=== PATIENT | male | born 1965 | race Caucasian/White ===

== ENCOUNTER → 2020-03-25 09:27 | Outpatient (BNVA) | payer BC, SELFPAY | PROVIDERS: PCP Hospitalist; Referring Provider Hospitalist; Visit Provider Urology | DX: E29.1 Testicular hypofunction (principal); R35.1 Nocturia; N52.9 Male erectile dysfunction, unspecified | CPT/HCPCS: 99214 ==

== ENCOUNTER → 2020-09-23 10:14 | Outpatient (BNVA) | payer BC, SELFPAY | PROVIDERS: PCP Hospitalist; Visit Provider Urology ==

== ENCOUNTER → 2021-03-27 09:06 | Outpatient (BNVA) | payer BC, SELFPAY | PROVIDERS: PCP Hospitalist; Visit Provider Urology ==

== ENCOUNTER → 2021-10-09 09:18 | Outpatient (BNVA) | payer BC, SELFPAY | PROVIDERS: PCP Family Medicine; Visit Provider Urology | DX: R35.1 Nocturia (principal) ==

== ENCOUNTER → 2022-04-13 08:19 | Outpatient (BNVA) | payer BC, SELFPAY | PROVIDERS: PCP Family Medicine; Visit Provider Urology | DX: E29.1 Testicular hypofunction (principal); R35.1 Nocturia | CPT/HCPCS: 51798 ==

== ENCOUNTER → 2022-10-19 08:42 | Outpatient (BNVA) | payer BC, SELFPAY | PROVIDERS: PCP Family Medicine; Visit Provider Urology ==

== ENCOUNTER 2023-05-24 13:51 | Outpatient (AMB) | payer BC, SELFPAY ==
--- NOTE | 2023-05-24 14:04 | MHC.OFFVIS ---
Intake Intake Visit Reasons: PSA/Estradiol(need Testo) Intake Note: Patient is Present for Follow Up labs Urology Medication:Tadalafil Antibiotic Allergies: None Blood Thinners: None Allergies codeine Allergy (Unknown, Verified 05/24/23 14:10) unknown HPI HPI Comments History of Present Illness Details Greyson WILLIS is a very pleasant male. He is a patient of Dr Levy. He is seen for the following urologic conditions. - hypogonadism - lower urinary tract symptoms - erectile dysfunction in setting of diabetes Stable numbers Six-month follow-up Has been increased on diabetic medications Daily tadalafil for erectile dysfunction - has helped Continue clomiphene 1/2 tab daily Hypogonadism Initial symptoms include erectile dysfunction Yes decreased libido Yes change in mood/depression Yes in muscle size/strength Yes increased fatigue/malaise Yes increased abdominal fat No tender breasts/gynecomastia No hair loss No osteopenia No The onset of symptoms has been gradual. Associate conditions include obstructive sleep apnea No CAD No dyslipidemia Yes hypertension Yes obesity Yes stress - financial, family, employment No heavy alcohol or illicit drug use No Laboratory results 05/24 T 274 06/25 T 273 FSH 7.6 LH 7.0 09/23 T 715 FSH 12.5. - 03/25 T 940 PSA 0.9 FSH 12, 03/26 T 405, LH 7 - 09/25 T 660 P 1.0 FSH 11.8, 03/27 T 564 LH 8.9 Est , 09/26 T 591 E 17 Therapeutic plan baseline evaluation of testicular function. Doing well. Review in 6 months Lower Urinary Tract Symptoms: Current visit is for further evaluation of, lower urinary tract symptoms, predominate obstructive symptoms. Current treatment includes observation. Prostate Symptom Score 04/23 , Mild (0-8), Bother 2. Symptoms include 04/22 , incomplete emptying, intermittency, weak stream, and are stable 04/23 , weak stream, nocturia (>2). Prior Prostate Score mild. PSA 04/22 1.1 04/23 1.2 04/24 1.1 Prostate volume < 30 gm. [facility] Medical History Male circumcision Hypogonadism in male Low libido History of urinary hesitancy Weak urinary stream Benign prostatic hyperplasia with lower urinary tract symptoms Nocturia Review of Systems Const Denies chills and Denies fever(s) Card Reports no additional complaints and Denies syncope Resp Denies cough GI Denies abdominal pain and Denies heartburn Reports as per HPI and Denies change in libido Neuro Denies syncope Psych Denies change in libido Endo Denies change in libido Physical Exam Const General: cooperative, healthy appearing, comfortable and no acute distress Orientation/consciousness: patient oriented x3 HEENT Face and sinus: Yes normal facial exam Mouth: moist mucous membranes Neck Neck: Yes normal visual inspection, Yes full ROM and Yes trachea midline Chest Chest palpation & inspection: normal inspection of the chest Resp Effort & Inspection: normal respiratory effort, able to speak in complete sentences and no respiratory distress GI Inspection: Yes normal to inspection Back/Spine/Pelvis Cervical Spine: normal cervical lordosis Thoracic/Lumbar Spine: thoracic and lumbar spine normal to inspection Skin General skin exam: no rashes or lesions noted Neuro General: patient oriented x3, gait normal, tone normal and moves all extremities Extrem General: Yes normal to inspection and Yes capillary refill normal Assessment & Plan Assessment & Plan (1) Erectile dysfunction associated with type 2 diabetes mellitus: Code(s): E11.69 - Type 2 diabetes mellitus with other specified complication; N52.1 - Erectile dysfunction due to diseases classified elsewhere (2) Hypogonadism in male: Code(s): E29.1 - Testicular hypofunction Plan Six month follow-up labs Orders: Orders Testosterone, Total 6 Months E29.1 - Testicular hypofunction Prostate Specific Antigen 6 Months E29.1 - Testicular hypofunction Patient Instructions: Imaging studies, laboratory and physical exam results were discussed and reviewed in detail. No major barriers to patient understanding were identified. An opportunity to ask questions regarding the treatment plan was provided. All questions were answered. The patient expressed understanding and agreement with the above treatment plan. The patient is aware they should contact our office by phone for worsening of their current condition or the appearance of new urologic symptoms. Compliance is encouraged with any medications and followup testing that is ordered. It is a privilege to participate in the urologic care of your patient. If you have any questions or concerns regarding treatment for the above conditions, or other urologic issues, please do not hesitate to contact me. The office telephone contact is [phone]. This note is constructed using voice recognition software. While every effort has been made to ensure accuracy implementation project coordinator errors may have been included. Yours sincerely, Dr Bhargav Tobar MD, [facility] - Urology Providers of Expert, Compassionate Care for the Genitourinary System Coding Level of Care Code Est Pt Level 3 (00034) Diagnoses Erectile dysfunction associated with type 2 diabetes mellitus E11.69; N52.1 Hypogonadism in male E29.1
== END 2023-05-24 14:35 | disposition home or self-care (01) ==
PROVIDERS: PCP Family Medicine; Visit Provider Urology
DX: E11.69 Type 2 diabetes mellitus with other specified complication (principal); N52.1 Erectile dysfunction due to diseases classified elsewhere; E29.1 Testicular hypofunction
CPT/HCPCS: 99213

== ENCOUNTER → 2023-05-24 13:51 | Outpatient (BNVA) | payer BC, SELFPAY | PROVIDERS: PCP Family Medicine; Visit Provider Urology ==

== ENCOUNTER 2023-11-23 14:26 | Outpatient (AMB) | payer BC, SELFPAY ==
--- NOTE | 2023-11-23 14:57 | A.OFFVIS_ITS ---
Intake Visit Reasons: 6m/labs(set) Intake Note: Patient is Present for Follow Up labs Urology Medication: Tadalafil Antibiotic Allergies:None Blood Thinners: Aspirin Allergies codeine Allergy (Unknown, Verified 11/23/23 15:06) unknown Medication List - Last Reconciled 11/23/23 by Bhargav Tobar MD atorvastatin 10 mg PO DAILY buspirone 15 mg PO BID clomiphene citrate 25 mg (1/2 x 50 mg) PO DAILY 90 days escitalopram oxalate 10 mg PO DAILY gabapentin 400 mg PO DAILY gabapentin 400 mg PO BEDTIME lifitegrast 5% 1 drp ophthalmic (eye) Q12H lisinopril 10 mg PO DAILY metformin 500 mg PO DAILY metformin 1,000 mg PO BID resmetirom (Rezdiffra) 100 mg PO DAILY semaglutide (Rybelsus) 3 mg PO DAILY tadalafil 5 mg PO DAILY 90 days HPI Comments Details: Greyson WILLIS is a very pleasant male. He is a patient of Dr Levy. He is seen for the following urologic conditions. - hypogonadism - lower urinary tract symptoms - erectile dysfunction in setting of diabetes 11/27 T 987 Daily tadalafil for erectile dysfunction - has helped Continue clomiphene 1/2 tab daily On semaglutide and metformin - has dropped weight. May need decrease in metformin Six-month follow-up Hypogonadism Initial symptoms include erectile dysfunction Yes decreased libido Yes change in mood/depression Yes in muscle size/strength Yes increased fatigue/malaise Yes increased abdominal fat No tender breasts/gynecomastia No hair loss No osteopenia No The onset of symptoms has been gradual. Associate conditions include obstructive sleep apnea No CAD No dyslipidemia Yes hypertension Yes obesity Yes stress - financial, family, employment No heavy alcohol or illicit drug use No Laboratory results 05/24 T 274 06/25 T 273 FSH 7.6 LH 7.0 09/23 T 715 FSH 12.5. - 03/25 T 940 PSA 0.9 FSH , 03/26 T 405, LH 7 - 09/25 T 660 P 1.0 FSH 11.8, 03/27 T 564 LH 8.9 Est , 09/26 T 591 E 17 Therapeutic plan baseline evaluation of testicular function. Doing well. Review in 6 months Lower Urinary Tract Symptoms: Current visit is for further evaluation of, lower urinary tract symptoms, predominate obstructive symptoms. Current treatment includes observation. Prostate Symptom Score 04/23 , Mild (0-8), Bother 2. Symptoms include 04/22 , incomplete emptying, intermittency, weak stream, and are stable 04/23 , weak stream, nocturia (>2). Prior Prostate Score mild. PSA 04/22 1.1 04/23 1.2 04/24 1.1 Prostate volume < 30 gm. [facility] Medical History Male circumcision Hypogonadism in male Low libido History of urinary hesitancy Weak urinary stream Benign prostatic hyperplasia with lower urinary tract symptoms Nocturia Review of Systems Const Denies chills and Denies fever(s) Card Reports no additional complaints and Denies syncope Resp Denies cough GI Denies abdominal pain and Denies heartburn Reports as per HPI and Denies change in libido Neuro Denies syncope Psych Denies change in libido Endo Denies change in libido Physical Exam Const General: cooperative, healthy appearing, comfortable and no acute distress Orientation/consciousness: patient oriented x3 HEENT Face and sinus: Yes normal facial exam Mouth: moist mucous membranes Neck Neck: Yes normal visual inspection, Yes full ROM and Yes trachea midline Chest Chest palpation & inspection: normal inspection of the chest Resp Effort & Inspection: normal respiratory effort, able to speak in complete sentences and no respiratory distress GI Inspection: Yes normal to inspection Back/Spine/Pelvis Cervical Spine: normal cervical lordosis Thoracic/Lumbar Spine: thoracic and lumbar spine normal to inspection Skin General skin exam: no rashes or lesions noted Neuro General: patient oriented x3, gait normal, tone normal and moves all extremities Extrem General: Yes normal to inspection and Yes capillary refill normal Assessment & Plan Assessment & Plan (1) Erectile dysfunction associated with type 2 diabetes mellitus: Code(s): E11.69 - Type 2 diabetes mellitus with other specified complication; N52.1 - Erectile dysfunction due to diseases classified elsewhere Category: Medical (2) Hypogonadism in male: Code(s): E29.1 - Testicular hypofunction Category: Medical Plan Refill medications Six-month follow-up labs Orders: Orders Testosterone, Total 6 Months E29.1 - Testicular hypofunction Estradiol Ultra Sensitive 6 Months E29.1 - Testicular hypofunction Medications: New tadalafil On demand medication take 60 minutes before intended activity 20 mg PO ONCE 30 days PRN 30 tabs 0RF sexual activity E11.69 - Type 2 diabetes mellitus with other specified complication, N52.1 - Erectile dysfunction due to diseases classified elsewhere Refilled tadalafil 5 mg PO DAILY 90 days 90 tabs 1RF sexual activity E11.69 - Type 2 diabetes mellitus with other specified complication, N52.1 - Erectile dysfunction due to diseases classified elsewhere Patient Instructions: Imaging studies, laboratory and physical exam results were discussed and reviewed in detail. No major barriers to patient understanding were identified. An opportunity to ask questions regarding the treatment plan was provided. All questions were answered. The patient expressed understanding and agreement with the above treatment plan. The patient is aware they should contact our office by phone for worsening of their current condition or the appearance of new urologic symptoms. Compliance is encouraged with any medications and followup testing that is ordered. It is a privilege to participate in the urologic care of your patient. If you have any questions or concerns regarding treatment for the above conditions, or other urologic issues, please do not hesitate to contact me. The office telephone contact is [phone]. This note is constructed using voice recognition software. While every effort has been made to ensure accuracy respiratory therapy manager errors may have been included. Yours sincerely, Dr Bhargav Tobar MD, [facility] - Urology Providers of Expert, Compassionate Care for the Genitourinary System Coding Level of Care Code Est Pt Level 3 (32383) Diagnoses Erectile dysfunction associated with type 2 diabetes mellitus E11.69; N52.1 Hypogonadism in male E29.1
== END 2023-11-23 15:35 | disposition home or self-care (01) ==
PROVIDERS: PCP Family Medicine; Visit Provider Urology
DX: E11.69 Type 2 diabetes mellitus with other specified complication (principal); N52.1 Erectile dysfunction due to diseases classified elsewhere; E29.1 Testicular hypofunction
CPT/HCPCS: 99213

== ENCOUNTER → 2023-11-23 14:26 | Outpatient (BNVA) | payer BC, SELFPAY | PROVIDERS: PCP Family Medicine; Visit Provider Urology ==

== ENCOUNTER 2023-12-22 20:01 | Emergency (ER) | payer OTHER, BC, SELFPAY ==
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
[2023-12-22 20:09] VITALS: BP 124/78; PULSE 105; O2SAT 94
[2023-12-22 20:23] VITALS: BP 131/72; PULSE 99; RESP 17; TEMP 36.6; O2SAT 99; BMI 35.9
--- NOTE | 2023-12-22 20:36 | PC.NURSE ---
case discussed with Dr Maria Luisa isidro that MD is aware of patient status. orders will be placed when patient is further evaluated.
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
[2023-12-22 22:24] LABS: MANUAL DIFF FLAG NO
[2023-12-22 22:37] LABS: Basophils Percent Auto 0.3 % (0-2); Eosinophils Absolute Auto 0.1 X10*3/uL (0.0-0.4); Eosinophils Percent Auto 1.2 % (0-4); Hematocrit 39.1 % (42.0-52.0); Hemoglobin 13.7 g/dl (14.0-18.0); Imm Gran Abs Auto 0.08 X10*3/uL (0.00-0.03); Imm Gran Pct Auto 0.8 % (0.0-0.4); Lymphocytes Absolute Auto 1.7 X10*3/uL (1.2-4.9); Lymphocytes Percent Auto 17.4 % (20-40); Mean Corpuscular Hemoglobin 31.4 pg (27.0-33.0); Mean Corpuscular Volume 89.5 fL (80.0-98.0); Mean Platelet Volume 10.1 fL (9.4-12.4); Monocytes Absolute Auto 0.7 X10*3/uL (0.1-1.2); Monocytes Percent Auto 7.5 % (2-11); Neutrophils Percent Auto 72.8 % (45-73); Platelet Count 110 X10*3/uL (160-400); Red Blood Count 4.37 X10*6/uL (4.60-5.80); Red Cell Distribution Width 13.6 % (11.0-16.0); White Blood Count 9.7 X10*3/uL (4.8-10.8)
[2023-12-22 23:33] LABS: Anion Gap 15 (12-20); Blood Urea Nitrogen 8 mg/dL (9-16); Calcium 9.1 mg/dL (8.4-10.2); Carbon Dioxide 22 mmol/L (22-29); Chloride 108 mmol/L (96-108); Creatinine Clr Calc Pharmacy 110.1; Estimated Glomerular Filt Rate > 60; Glucose Random 108 mg/dL (60-115); Potassium 4.2 mmol/L (3.3-5.1); Sodium 141 mmol/L (135-145)
[2023-12-22] MEDS: iohexoL 350 MG/ML 100 ML INFUS..BTL IV (23:56)
[2023-12-23 00:54] VITALS: BP 131/72; PULSE 99; RESP 17; TEMP 36.6; O2SAT 99
== END 2023-12-23 01:00 | disposition home or self-care (01) ==
PROVIDERS: Emergency Provider Internal Medicine; PCP Family Medicine
DX: S30.1XXA Contusion of abdominal wall, initial encounter (principal); V43.52XA Car driver injured in collision with other type car in traffic accident, initial encounter; W22.12XA Striking against or struck by front passenger side automobile airbag, initial encounter; Y93.9 Activity, unspecified; Y92.410 Unspecified street and highway as the place of occurrence of the external cause; Y99.9 Unspecified external cause status; Z79.899 Other long term (current) drug therapy
CPT/HCPCS: 36415; 71045; 74177; 80048; 85025; 93005; 99284; Q9967

== ENCOUNTER → 2023-12-22 21:16 | Outpatient (BNV) | payer BC, SELFPAY | PROVIDERS: Emergency Provider Internal Medicine; PCP Family Medicine; Visit Provider Internal Medicine Cardiovascular Disease | DX: R94.31 Abnormal electrocardiogram [ECG] [EKG] (principal) | CPT/HCPCS: 93010 ==

== ENCOUNTER 2024-05-25 14:01 | Outpatient (AMB) | payer BC, SELFPAY ==
--- NOTE | 2024-05-25 14:03 | MHC.OFFVIS ---
Intake Visit Reasons: 6M Testosterone(set) Intake Note: Patient is present for 6M/TESTOSTERONE Urology Medication:TADALAFIL,CLOMIPHENE CITRATE Antibiotic Allergy:NONE Blood Thinner:NONE Knowledge Manager Required: No Allergies codeine Allergy (Unknown, Verified 05/25/24 14:03) unknown shellfish derived Allergy (Verified 05/25/24 14:03) Anaphylaxis trazodone Adverse Reaction (Verified 05/25/24 14:03) Palpitations HPI Comments Details: Greyson WILLIS is a very pleasant male. He is a patient of Dr Levy. He is seen for the following urologic conditions. - hypogonadism - lower urinary tract symptoms - erectile dysfunction in setting of diabetes Rise in E2 Will reduce clomiphene to half tab every 3rd day Otherwise well Refills provided 11/27 T 987, 05/29 T 1000 E 50 Daily tadalafil for erectile dysfunction - has helped On semaglutide and metformin - has dropped weight. 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 Associate conditions include obstructive sleep apnea No CAD No dyslipidemia Yes hypertension Yes obesity Yes stress - financial, family, employment No heavy alcohol or illicit drug use No Laboratory results 05/24 T 274 06/25 T 273 FSH 7.6 LH 7.0 09/23 T 715 FSH 12.5. - 03/25 T 940 PSA 0.9 FSH 12, 03/26 T 405, LH 7 - 09/25 T 660 P 1.0 FSH 11.8, 03/27 T 564 LH 8.9 Est , 09/26 T 591 E 17 Therapeutic plan baseline evaluation of testicular function. Doing well. Review in 6 months Lower Urinary Tract Symptoms: Current visit is for further evaluation of, lower urinary tract symptoms, predominate obstructive symptoms. Current treatment includes observation. Prostate Symptom Score 04/23 , Mild (0-8), Bother 2. Symptoms include 04/22 , incomplete emptying, intermittency, weak stream, and are stable 04/23 , weak stream, nocturia (>2). Prior Prostate Score mild. PSA 04/22 1.1 04/23 1.2 04/24 1.1 Prostate volume < 30 gm. [facility] Medical History Male circumcision Hypogonadism in male Low libido History of urinary hesitancy Weak urinary stream Benign prostatic hyperplasia with lower urinary tract symptoms Nocturia Review of Systems Const Denies chills and Denies fever(s) Card Reports no additional complaints and Denies syncope Resp Denies cough GI Denies abdominal pain and Denies heartburn Reports as per HPI and Denies change in libido Neuro Denies syncope Psych Denies change in libido Endo Denies change in libido Physical Exam Const General: cooperative, healthy appearing, comfortable and no acute distress Orientation/consciousness: patient oriented x3 HEENT Face and sinus: Yes normal facial exam Mouth: moist mucous membranes Neck Neck: Yes normal visual inspection, Yes full ROM and Yes trachea midline Chest Chest palpation & inspection: normal inspection of the chest Resp Effort & Inspection: normal respiratory effort, able to speak in complete sentences and no respiratory distress GI Inspection: Yes normal to inspection Back/Spine/Pelvis Cervical Spine: normal cervical lordosis Thoracic/Lumbar Spine: thoracic and lumbar spine normal to inspection Skin General skin exam: no rashes or lesions noted Neuro General: patient oriented x3, gait normal, tone normal and moves all extremities Extrem General: Yes normal to inspection and Yes capillary refill normal Assessment & Plan Assessment & Plan (1) Nocturia: Code(s): R35.1 - Nocturia Category: Medical (2) Erectile dysfunction associated with type 2 diabetes mellitus: Code(s): E11.69 - Type 2 diabetes mellitus with other specified complication; N52.1 - Erectile dysfunction due to diseases classified elsewhere Category: Medical Plan Six-month follow-up lab work Orders: Orders Testosterone, Total 6 Months E29.1 - Testicular hypofunction Prostate Specific Antigen 6 Months E29.1 - Testicular hypofunction Estradiol Ultra Sensitive 6 Months E29.1 - Testicular hypofunction Medications: Refilled clomiphene citrate 25 mg (1/2 x 50 mg) PO DAILY 90 days 45 tabs 1RF E29.1 - Testicular hypofunction Patient Instructions: Imaging studies, laboratory and physical exam results were discussed and reviewed in detail. No major barriers to patient understanding were identified. An opportunity to ask questions regarding the treatment plan was provided. All questions were answered. The patient expressed understanding and agreement with the above treatment plan. The patient is aware they should contact our office by phone for worsening of their current condition or the appearance of new urologic symptoms. Compliance is encouraged with any medications and followup testing that is ordered. It is a privilege to participate in the urologic care of your patient. If you have any questions or concerns regarding treatment for the above conditions, or other urologic issues, please do not hesitate to contact me. The office telephone contact is [phone]. This note is constructed using voice recognition software. While every effort has been made to ensure accuracy senior ui designer errors may have been included. Yours sincerely, Dr Bhargav Tobar MD, [facility] - Urology Providers of Expert, Compassionate Care for the Genitourinary System Coding Level of Care Code Est Pt Level 3 (97231) Diagnoses Nocturia R35.1 Erectile dysfunction associated with type 2 diabetes mellitus E11.69; N52.1
--- OUTSIDE RECORDS SUMMARY | 2024-05-25 14:03 | XMS_ITS ---
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 Role Phone Vitor Levy MD Primary Care Provider Yung Gutierres Unavailable [phone] Allergies Allergen (clinical drug ingredient) Drug/Non Drug Allergy documented on EMR Reaction Allergy Type Onset Date Status codeine Codeine Unknown Drug Allergy Active Shellfish (FN) Shellfish-derived Products Unknown Drug Allergy Active trazodone Trazodone rapid heart rate Drug Allergy Active REASON FOR VISIT Painful nail(s) aggrevated by shoes causing difficulty standing/walking, Skin problem(s) Medications Medication SIG (Take, Route, Frequency, Duration) Notes Start Date End Date Status cloNIDine HCl 0.1 MG 1 tablet at bedtime Orally Not-Taking Tolnaftate 1 % Externally prn Not-Taking clonazePAM 0.25 MG 1 tablet Orally Once a day Not-Taking Econazole Nitrate twice a day Not-Taking Magnesium Not-Taking metFORMIN HCl 500 MG Oral for 90 Active Gabapentin 400 MG 1 tablet Orally Once a day Active Viagra 20mg 1 tablet as needed Not-Taking Xiidra 5 % 1 drop into affected eye Ophthalmic Twice a day Not-Takin g Melatonin Not-Taking Vitamin E Active Extra Depth Orthopedic Shoes (1 Pair) with Customized Heat Molded Multidensity Innersoles (3 Pair) as directed Dx: NIDDM (E11.9), Hammertoe Foot Deformity (M20.41,M20.42), Preulcerative Skin Lesion(s) (L85.1) 07/26/2023 Active Multi Vitamin Mens A ctive metFORMIN HCl 1000 MG 1 tablet with a me al Orally Once a day Active Rybelsus 7 MG as directed Orally Active Probiotic Active Clomid 50mg every other day Ac tive Lexapro 10 MG 1 tablet Orally Once a day Active Lisinopril 5 MG 1 tablet Orally Once a day Active Fish Oil 1200mg Once a day Act renata Advil Dual Action Ac tive busPIRone HCl 10 MG 1 tablet Orally Twic e a day Active Cialis Active Atorvastatin Calcium Active Rybelsus 7 MG 1 tablet at least 30 minutes before first food, beverage or other oral medicine of the day Orally Once a day for 30 day(s) Active Ammonium Lactate 12 % 1 application Exte rnally to affected areas of dry skin to feet except for between the toes Twice a day for 30 days Active Social History Tobacco Use: Social History Observation Description Date Details (start date - stop date) Former Smoker NA - 06/06/1988 Tobacco Use/Smoking Question Answer Notes Are you a: former smoker When did you stop smoking? 06/06/1988 Additional Findings: Tobacco Non-User Current no n-smoker Alcohol Screen Question Answer Notes Did you have a drink containing alcohol in the p ast year? No Points 0 Interpretation Negative Tobacco use other than smoking: Question Answer Notes Are you an other tobacco user? No Vital Signs Height 5ft 7in in 05/25/2024 Weight 223 lbs 05/25/2024 BMI 34.92 kg/m2 05/25/2024 Blood pressure systolic 120 mm Hg 05/25/20 24 Blood pressure diastolic 70 mm Hg 024 Procedures Procedure Date Ordered Date Performed Result Body Sit e 04579-NTQZDMJ NAIL, 6 OR MORE 05/25/2024 N/A Encounters Encounter Location Date Provider Diagnosis [facility] [address] [place] [address] 05/25/2024 Yung Ritter Tinea unguium B35.1 ; Pain in right toe(s) M79.674 ; Pain in left toe(s) M79.675 and Xerosis of skin L85.3 Assessments Encounter Date Diagnosis (ICD Code) Assessment Notes Treatment Notes Treatment Clinical Notes Section Notes 05/25/2024 Tinea unguium (ICD-10 - B35.1) 05/25/2024 Pain in right toe(s) (ICD-10 - M79.674) 05/25/2024 Pain in left toe(s) (ICD-10 - M79.675) 05/25/2024 Xerosis of skin (ICD-10 - L85.3) Plan Of Treatment Medication Medication Name Sig Start Date Stop Date Notes Ammonium Lactate 12 % 1 application Exte rnally to affected areas of dry skin to feet except for between the toes Twice a day for 30 days Pending Test Test Name Order Date [id number] NAIL, 6 OR MORE 05/25/2024 Next Appt Details Follow Up: prn, Reason: Provider Name:Yung Ritter , 11/23/2024 08:45:00 AM, [address] [place] [address], [id number], Procedure Notes * Category Sub-Category Detail Notes Debride Nail 6-10 Nail debridement Due to the cl inical pathology outlined in the exam findings, performance of this nail treatment is medically necessary as its management by an unskilled/untrained nonprofessional would put this patients foot and overall health at risk. Therefore, debridement to affected nail(s), as described in exam ( TA, T1, T2, T4, T5, T6, T7, T9), was performed exclusively by the physician of record to reduce/remove overall nail length, girth, thickness, subungual debris, and necrotic tissue, by manual and/or electrical means through the use of a nail nipper and/or dremel-type grinder hardboard, to a more viable healthy nail plate or bed tissue 6-10 nails in total. Silver nitrate was used for any petechial bleeding as necessary. Definitive antifungal treatment options, both pharmaceutical and surgical, have been reviewed and discussed with the patient. The patient solely prefers the use of intermittent/as needed professional debridement services for their nail condition and understands the need for additional periodic treatments to maintain effectiveness in symptomatic relief - 16013 Progress Notes * Greyson HAYDENDOB: [birth year] (59 yo M)Acc No.[id number]:05/25/2024 Progress Note Patient:?Greyson HAYDEN Laila Provider:?Yung Ritter DPM :1965???Age:59 Y???Sex:Male Liam e:05/25/2024 Address:[address] [place] [address] [address], [id number] Pcp:Vitor Levy MD Subjective: * Chief Complaints: * ???Painful nail(s) aggrevate d by shoes causing difficulty standing/walkingSkin problem(s) * HPI: ???Painful Nails:?Pt States Last PCP Visit:?Date:?03/15/2024 ???Skin problems:?Nature:?dryness , scaling.?Location:?B/L .?Duration:?several days.?Course:?worse.? * ROS:?General/Constitutional:?Nausea?denies.?Vomiting?denies.?Hunger Thirst?denies.?Loss appetite?denies.?Chills?denies.?Fatigue?denies.?Fever?denies.?Night Sweats?denies.?Unexplained weight loss?denies.?Unexplained weight gain?denies.?HEENTM:?Dentures?denies.?Dizziness?denies.?Glasses/contacts?admits.?Retinopathy?de nies.?Blurred/double vision?denies.?TMJ?denies.?Discharge/drainage?denies.?Implants?denies.?Sore throat?denies.?Dental implants?denies.?Hard of hearing ?denies.?Difficulty chewing/swallowing/speaking?denies.?Nose bleeds?denies.?Sore mouth?denies.?Respiratory:?On Oxygen?denies.?Pneumonia/pleurisy?denies.?Bronchitis?denies.?Emphysema?denies.?C oughing?denies.?Cough blood?denies.?Shortness of breath?denies.?Wheezing?denies.?Cardiovascular:?Pacemaker?denies.?MVP?denies.?WPW?denies.?CHF?denies.?Heart attack?denies.?Septal defect?denies.?Rapid beat?denies.?Chest pain ?denies.?Atrial Fib.?denies.?Murmur/Palpitations?denies.?Gastrointestinal:?Hemorrhoids?denies.?Stomach/Abdominal pain?denies.?Dark blood stool?denies.?Irritable bowel ?denies.?Constipation?denies.?Diarrhea?denies.?Hematology:?Swelling?denies.?Clots?denies.?Varicose Veins?denies.?Bruising?denies.?Bleeding problem?denies.?Genitourinary:?Blood urine?denies.?Frequent/Painfu/urination/bladder control?denies.?Kidney stones?denies.?Infection (UTI)?denies.?Nephropathy?denies.?sex trans dis (STD)?denies.?Prostate?denies.?Musculoskeletal:?Hammertoes?denies.?Bunions?admits.?Back Pain?denies.?Muscle Cramps/ Resting?admits.?Muscle cramps / walking?denies.?Generalized aches and pains?admits.?Weakness?denies.?Integ.:?Pruett?denies.?Scars?denies.?Corns/calluses?admits.?Ingrown nails?admits.?Painful nails?admits.?Open Sores?denies.?Rashes?denies.?Neurologic:?Difficulty sleeping?denies.?Brain disorder?denies.?Numbness?denies.?Balance trouble?admits.?Confusion?denies.?Fainting/blackouts?denies.?Tingling?denies.?Tr emors?denies.? * Medical History:? * Surgical History:?urological 05/23/2013endoscopy 05/09/2019Hernia repair 02/09/23 * Hospitalization/Major Diagno stic Procedure:?Denies Past Hospitalization * Family History:?Mother: dece ased, diagnosed with Other malignant neoplasm of unspecified site, Diabetic - NIDDM, Unspecified heart disease.?Father: , diagnosed with Other malignant neoplasm of unspecified site, Diabetic - NIDDM, Unspecified heart disease.?Siblings: diagnosed with Other malignant neoplasm of unspecified site, Unspecified essential hypertension.? kidney/liver disease ?. * Social History:?Tobacco Use:?Tobacco Use/Smoking?Are you a:?former smoker ?When did you stop smoking??06/06/1988 ?Additional Findings: Tobacco Non-User?Current non-smoker ?Tobacco use other than smoking?Are you an other tobacco user??No ???Drugs/Alcohol:?Drugs?Have you used drugs other than those for medical reasons in the past 12 months??No ?Alcohol Screen?Did you have a drink containing alcohol in the past year??No ?Points?0 ?Interpretation?Negative ???Miscellaneous:?Caffeine: yes, frequency: tea -1-2 cups per day. ?Children: no. ?Exercise: yes, weightlifting, cardio, water aerobics. ?Marital status: single. 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 * Medications:?TakingAtorvasta tin Calcium Rybelsus 7 MG Tablet 1 tablet at least 30 minutes before first food, beverage or other oral medicine of the day Orally Once a day Cialis Advil Dual Action busPIRone HCl 10 MG Tablet 1 tablet Orally Twice a day Clomid 50mg every other day Lexapro 10 MG Tablet 1 tablet Orally Once a day Lisinopril 5 MG Tablet 1 tablet Orally Once a day Fish Oil 1200mg Once a day Probiotic Multi Vitamin Mens metFORMIN HCl 1000 MG Tablet 1 tablet with a meal Orally Once a day Rybelsus 7 MG Tablet as directed Orally Vitamin E Extra Depth Orthopedic Shoes (1 Pair) with Customized Heat Molded Multidensity Innersoles (3 Pair) as directed Dx: NIDDM (E11.9), Hammertoe Foot Deformity (M20.41,M20.42), Preulcerative Skin Lesion(s) (L85.1) metFORMIN HCl 500 MG Tablet Oral Gabapentin 400 MG Capsule 1 tablet Orally Once a day Taking Atorvastatin Calcium Taking Rybelsus 7 MG Tablet 1 tablet at least 30 minutes before first food, beverage or other oral medicine of the day Orally Once a day Taking Cialis Taking Advil Dual Action Taking busPIRone HCl 10 MG Tablet 1 tablet Orally Twice a day Taking Clomid 50mg every other day Taking Lexapro 10 MG Tablet 1 tablet Orally Once a day Taking Lisinopril 5 MG Tablet 1 tablet Orally Once a day Taking Fish Oil 1200mg Once a day Taking Probiotic Taking Multi Vitamin Mens Taking metFORMIN HCl 1000 MG Tablet 1 tablet with a meal Orally Once a day Taking Rybelsus 7 MG Tablet as directed Orally Taking Vitamin E Taking Extra Depth Orthopedic Shoes (1 Pair) with Customized Heat Molded Multidensity Innersoles (3 Pair) as directed Dx: NIDDM (E11.9), Hammertoe Foot Deformity (M20.41,M20.42), Preulcerative Skin Lesion(s) (L85.1) Taking metFORMIN HCl 500 MG Tablet Oral Taking Gabapentin 400 MG Capsule 1 tablet Orally Once a day Not-Taking/PRNViagra 20mg 1 tablet as needed Xiidra 5 % Solution 1 drop into affected eye Ophthalmic Twice a day Melatonin clonazePAM 0.25 MG Tablet Disintegrating 1 tablet Orally Once a day Econazole Nitrate twice a day Magnesium cloNIDine HCl 0.1 MG Tablet 1 tablet at bedtime Orally Tolnaftate 1 % Aerosol Powder Externally prn Medication List reviewed and reconciled with the patientNot-Taking/PRN Viagra 20mg 1 tablet as needed Not-Taking/PRN Xiidra 5 % Solution 1 drop into affected eye Ophthalmic Twice a day Not-Taking/PRN Melatonin Not-Taking/PRN clonazePAM 0.25 MG Tablet Disintegrating 1 tablet Orally Once a day Not-Taking/PRN Econazole Nitrate twice a day Not-Taking/PRN Magnesium Not-Taking/PRN cloNIDine HCl 0.1 MG Tablet 1 tablet at bedtime Orally Not-Taking/PRN Tolnaftate 1 % Aerosol Powder Externally prn Medication List reviewed and reconciled with the patient * Allergies:?Shellfish-derived ProductsCodeineTrazodone: rapid heart rateyes[Allergies Verified] Objective: * Vitals:?Ht:5ft 7in, Wt:223, BMI:34.92, Shoe size:9-10, BP:120/70mm Hg, BS:110, Ht-cm: 170.18 cm, Wt-k.15 kg. * ???Past Orders: ???Lab:HEMOGLOBIN A1C (GLYCO HEMOGLOBIN) (Order Date - 05/25/2024) (Collection Date & Time - 04/06/2024 10:34 AM) ? Value Reference Range ?TOTAL HEMOGLOBIN (HGBA1C) 6.0 * Examination: ???Nails: ?NAILS are:?Elongated, overgrown, dystrophic, lytic, greater than 3mm thick, discolored and friable with crumbly malodorous subungual debris, with pain on palpation, TA, T1, T2, T4, T5, T6, T7, T9, all other nails not described with characteristics as possessing mycosis are elongated, overgrown, and dystrophic.?Dermatologic: ?SKIN FINDINGS:?Skin shows sign(s) of, dryness, scaling, in a stocking fashion, no fissure(s) present, B/L.? Assessment: * Assessment: 1.?Tinea unguium - B35.1 (Pr imary)???2.?Pain in right toe(s) - M79.674???3.?Pain in left toe(s) - M79.675???4.?Xerosis of skin - L85.3???Specify :Acute problem, Uncomplicated (3),Rx Management (4)??? Plan: * Treatment: 2.?Xerosis of skin? Start Ammonium Lactate Cream, 12 %, 1 application, Externally to affected areas of dry skin to feet except for between the toes, Twice a day, 30 days, 140, Refills 2.?? * Procedures:?Debride Nail 6-10:?Nail debridement?Due to the clinical pathology outlined in the exam findings, performance of this nail treatment is medically necessary as its management by an unskilled/untrained nonprofessional would put this patients foot and overall health at risk. Therefore, debridement to affected nail(s), as described in exam (?TA,?T1,?T2,?T4,?T5,?T6,?T7,?T9), was performed exclusively by the physician of record to reduce/remove overall nail length, girth, thickness, subungual debris, and necrotic tissue, by manual and/or electrical means through the use of a nail nipper and/or dremel-type grinder hardboard, to a more viable healthy nail plate or bed tissue 6- 10 nails in total. Silver nitrate was used for any petechial bleeding as necessary. Definitive antifungal treatment options, both pharmaceutical and surgical, have been reviewed and discussed with the patient. The patient solely prefers the use of intermittent/as needed professional debridement services for their nail condition and understands the need for additional periodic treatments to maintain effectiveness in symptomatic relief - 40396.? * Procedure Codes:?69115 DEBRI DE NAIL, 6 OR MORE * Preventive Medicine:? ??Counseling:?Discussion:?-13: Office or other outpatient visit for the evaluation and management of an established patient, which required a medically appropriate history and/or examination and LOW level of DECISION MAKING for: 1 STABLE ACUTE UNCOMPLICATED PROBLEM, 2 OR MORE MINOR PROBLEMS, OR 1 STABLE CHRONIC PROBLEM, THAT POSE(S) A LOW RISK FOR MORBIDITY/MORTALITY. The visit on the day of the encounter encompassed interpreting the data and educating the patient as to the nature of their condition, treatment options available according to their individual PMH, meds, allergies, and overall health/living conditions, as well as any potential risks or complications that may occur from a failure to adhere to, and participate in, the recommended course of therapy. The discussion included a complete verbal, and/or written explanation of the examination results, any x-rays taken, the proposed diagnosis, and outline of the treatment plan. A schedule for future care needs was also explained. The patient verbalized an understanding of the instructions at this time and agreed to be an active participant in their treatment. If the patient should think of any questions or concerns after the visit, I have encouraged the patient to call the office.?Xerosis:?The patient was counseled on the diagnosis, potential etiologies, and treatment options for their skin condition. We discussed the risks and benefits of each option from performing no treatment, to utilizing OTC topical skin creams/ointments, to utilizing prescription topical creams/ointments, to utilizing customized compounded topical medications and use of nocturnal occlusion with any/all previously detailed therapies. We discussed the advantages and disadvantages of each possible treatment and importance for adherence to all the recommended therapies for optimum success and avoid potential complications such as open sore/infection/possible hospitalization. We discussed the potential effectiveness of each topical preparation as well as each ones possible side effects and/or patient medication interactions. Patient questions re: use, dosage, successful outcomes, and application consistency were reviewed and the patient verbalized that all answers were clearly understood. The patient has decided to apply Rx skin creams to their feet save the interspaces while paying special attention to the heels. Such was sent to their pharmacy at the time of visit.? * Follow Up:?prn * Images: * Sign off status: Completed true * Provider:?Yung Ritter DPM Date:?2023 Generated for Pierre han/Sheila/Jeremiah on:?05/25/2024 02:03 PM EST History and Physical Notes * HPI (History of Present Illness) Category Sub-Category Detail Notes Category Not es Painful Nails Pt States Last PCP Visit: Date:: 03/15/2024 Skin problems Nature: dryness , scaling Location: B/L Duration: several days Course: worse Examination Category Sub-Category Detail Notes Category Not es Dermatologic SKIN FINDINGS: Skin shows sign( s) of, dryness, scaling, in a stocking fashion, no fissure(s) present, B/L Nails NAILS are: Elongated, overg rown, dystrophic, lytic, greater than 3mm thick, discolored and friable with crumbly malodorous subungual debris, with pain on palpation, TA, T1, T2, T4, T5, T6, T7, T9, all other nails not described with characteristics as possessing mycosis are elongated, overgrown, and dystrophic
--- OUTSIDE RECORDS SUMMARY | 2024-05-25 14:03 | XMS_ITS ---
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 Name Role Phone Mildred RUIZ, Vitor Primary Care Provider Unava Yung Calle Unavailable [phone] Encounters Encounter Location Date Provider Diagnosis [facility] [address] [place] [address] 11/29/2023 Yung Ritter Plan Of Treatment Next Appt Details Provider Name:Yung Ritter , 11/23/2024 08:45:00 AM, [address] [place], [address], Progress Notes * Greyson HAYDEN LailaDOB: [birth year] (59 yo M)Acc No.[id number]:11/29/2023 Progress Note Patient:Greyson MCGUIRE Provider:?Yung Ritter DPM :1965???Age:58 Y???Sex:Male Liam e:11/29/2023 Address:[address] [place] [address] Pcp:Vitor Levy MD Subjective: * Chief Complaints: * ??? * Medical History:? Objective: * Vitals:? Assessment: Plan: * Treatment: * Images: * The named appointment provid er may or may not be the originator of this progress note, and it is not deemed complete until electronically signed by the appointment provider. Sign off status: Pending * Provider:?Yung Ritter DPM Date:?2023 Generated for Pierre han/Sheila/Jeremiah on:?05/25/2024 02:03 PM EST
--- OUTSIDE RECORDS SUMMARY | 2024-05-25 14:04 | XMS_ITS | Continuity of Care Document ---
Author Organization [facility] Address [address] [place] [address] Insurance Providers Payer Plan Claims Address Claims Phone Policy Number Group Number Relation Employer Guarantor Name Guarantor Guarantor Address Guarantor Phone [facility] [address], [place] [address] tel:[phone] [id number] Self Greyson Hayden [address] [place] [address] Problems Unknown Problems Results No Results Allergies, adverse reactions, alerts No known allergies and adverse reactions Medications No administered medications reported Vital Signs Date Vital Result Comment 06/29/2022 Body Height 1.9560906497098 m Body Weight 109.10157757395 kg Body Mass Index 37.75 kg/m2 Social History No smoking Hx information available
--- OUTSIDE RECORDS SUMMARY | 2024-05-25 14:04 | XMS_ITS ---
[facility] Address [address] [place] [address] Care Team Providers Care Statistical Typist Name Role Phone Vitor Levy MD Primary Care Provider Yung Gutierres Unavailable [phone] Allergies Allergen (clinical drug ingredient) Drug/Non Drug Allergy documented on EMR Reaction Allergy Type Onset Date Status codeine Codeine Unknown Drug Allergy Active Shellfish (FN) Shellfish-derived Products Unknown Drug Allergy Active REASON FOR VISIT Painful nail(s) aggrevated by shoes causing difficulty standing/walking Medications Medication SIG (Take, Route, Frequency, Duration) Notes Start Date End Date Status Multi Vitamin Mens A ctive Probiotic Active Lexapro 10 MG 1 tablet Orally Once a day Active Fish Oil 1200mg Once a day Act renata Lisinopril 5 MG 1 tablet Orally Once a day Active Cialis Active Rybelsus 7 MG 1 tablet at least 30 minutes before first food, beverage or other oral medicine of the day Orally Once a day for 30 day(s) Active busPIRone HCl 10 MG 1 tablet Orally Twic e a day Active Advil Dual Action Ac tive Clomid 50mg every other day Ac tive Tolnaftate 1 % Externally prn Not-Taking cloNIDine HCl 0.1 MG 1 tablet at bedtime Orally Not-Taking Atorvastatin Calcium Active Magnesium Not-Taking Econazole Nitrate twice a day Not-Taking clonazePAM 0.25 MG 1 tablet Orally Once a day Not-Taking Xiidra 5 % 1 drop into affected eye Ophthalmic Twice a day Not-Takin g Viagra 20mg 1 tablet as needed Not-Taking Melatonin Not-Taking metFORMIN HCl 500 MG Oral for 90 Not-Taking Vitamin E Active Rybelsus 7 MG as directed Orally Active Gabapentin 400 MG 1 tablet Orally Once a day Not-Taking Extra Depth Orthopedic Shoes (1 Pair) with Customized Heat Molded Multidensity Innersoles (3 Pair) as directed Dx: NIDDM (E11.9), Hammertoe Foot Deformity (M20.41,M20.42), Preulcerative Skin Lesion(s) (L85.1) 07/26/2023 Active metFORMIN HCl Active Social History Tobacco Use: Social History [...] Are you an other tobacco user? No Problems Problem Type SNOMED Code ICD Code Onset Dates Problem Status W/U Status Risk Notes Problem [id number] Tinea unguium (B35.1) Active confirmed Vital Signs Height 5ft 7in in 11/22/2023 Weight 223 lbs 11/22/2023 BMI 34.92 kg/m2 11/22/2023 Blood pressure systolic 118 mm Hg 11/22/19 24 Blood pressure diastolic 72 mm Hg 024 Procedures Procedure Date Ordered Date Performed Result Body Sit e 63087-FGRLUKE NAIL, 6 OR MORE 11/22/2023 N/A Encounters Encounter Location Date Provider Diagnosis [facility] [address] [place] [address] 11/22/2023 Yung Ritter Tinea unguium B35.1 ; Pain in right toe(s) M79.674 and Pain in left toe(s) M79.675 Assessments Encounter Date Diagnosis (ICD Code) Assessment Notes Treatment Notes Treatment Clinical Notes Section Notes 11/22/2023 Tinea unguium (ICD-10 - B35.1) 11/22/2023 Pain in right toe(s) (ICD-10 - M79.674) 11/22/2023 Pain in left toe(s) (ICD-10 - M79.675) Plan Of Treatment Pending Test Test Name Order Date 89755-QQOYQCG NAIL, 6 OR MORE 11/22/2023 Next Appt Details Follow Up: prn, Reason: Provider Name:Yung Covington Stone , 11/23/2024 08:45:00 AM, [address] [facility], [place], [address], Procedure Notes * Category Sub-Category Detail Notes Debride Nail 6-10 Nail debridement Nail debridem ent performed extensively to reduce/remove overall nail length, girth, thickness, subungual debris, and necrotic tissue, by manual and electrical means through the use of a nail nipper and/or dremel, to more viable healthy nail plate or bed tissue 1-5. Silver nitrate used for any petechial bleeding as necessary. Patient chooses, no pharmaceutical tx (98378) Progress Notes * Greyson HAYDENDOB: [birth year] (58 yo M)Acc No.[id number]:11/22/2023 Progress Note Patient:?Greyson Hayden Provider:?Yung Ritter DPM :1965???Age:58 Y???Sex:Male Liam e:11/22/2023 Address:[address] [place], [place] [id number] Pcp:Vitor Levy MD Subjective: * Chief Complaints: * ???Painful nail(s) aggrevate d by shoes causing difficulty standing/walking * HPI: ???Painful Nails:?Pt States Last PCP Visit:?Date:?11/09/2023 * ROS:?General/Constitutional:?Nausea?denies.?Vomiting?denies.?Hunger Thirst?denies.?Loss appetite?denies.?Chills?denies.?Fatigue?denies.?Fever?denies.?Night Sweats?denies.?Unexplained weight loss?denies.?Unexplained [...] * Family History:?Mother: dece ased, diagnosed with Diabetic - NIDDM, Unspecified heart disease, Other malignant neoplasm of unspecified site.?Father: , diagnosed with Diabetic - NIDDM, Unspecified heart disease, Other malignant neoplasm of unspecified site.?Siblings: diagnosed with Unspecified essential hypertension, Other malignant neoplasm of unspecified site.? kidney/liver disease ?. * Social History:?Tobacco Use:?Tobacco [...] yes, frequency: tea -1-2 cups per day. ?no Children. ?Exercise: yes, weightlifting, cardio, water aerobics. ?Marital status: single. 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 * Medications:?TakingAtorvasta tin Calcium Rybelsus 7 MG Tablet 1 tablet at least 30 minutes before first food, beverage or other oral medicine of the day Orally Once a dayCialis Advil Dual Action busPIRone HCl 10 MG Tablet 1 tablet Orally Twice a dayClomid 50mg every other dayLexapro 10 MG Tablet 1 tablet Orally Once a dayLisinopril 5 MG Tablet 1 tablet Orally Once a dayFish Oil 1200mg Once a dayProbiotic Multi Vitamin Mens metFORMIN HCl Rybelsus 7 MG Tablet as directed Orally Vitamin E Extra Depth Orthopedic Shoes (1 Pair) with Customized Heat Molded Multidensity Innersoles (3 Pair) as directed Dx: NIDDM (E11.9), Hammertoe Foot Deformity (M20.41,M20.42), Preulcerative Skin Lesion(s) (L85.1)Taking Atorvastatin Calcium Taking Rybelsus 7 MG Tablet 1 tablet at least 30 minutes before first food, beverage or other oral medicine of the day Orally Once a dayTaking Cialis Taking Advil Dual Action Taking busPIRone HCl 10 MG Tablet 1 tablet Orally Twice a dayTaking Clomid 50mg every other dayTaking Lexapro 10 MG Tablet 1 tablet Orally Once a dayTaking Lisinopril 5 MG Tablet 1 tablet Orally Once a dayTaking Fish Oil 1200mg Once a dayTaking Probiotic Taking Multi Vitamin Mens Taking metFORMIN HCl Taking Rybelsus 7 MG Tablet as directed Orally Taking Vitamin E Taking Extra Depth Orthopedic Shoes (1 Pair) with Customized Heat Molded Multidensity Innersoles (3 Pair) as directed Dx: NIDDM (E11.9), Hammertoe Foot Deformity (M20.41,M20.42), Preulcerative Skin Lesion(s) (L85.1)Not-Taking/PRNGabapentin 400 MG Capsule 1 tablet Orally Once a dayViagra 20mg 1 tablet as needed Xiidra 5 % Solution 1 drop into affected eye Ophthalmic Twice a daymetFORMIN HCl 500 MG Tablet Oral Melatonin clonazePAM 0.25 MG Tablet Disintegrating 1 tablet Orally Once a dayEconazole Nitrate twice a dayMagnesium cloNIDine HCl 0.1 MG Tablet 1 tablet at bedtime Orally Tolnaftate 1 % Aerosol Powder Externally prnMedication List reviewed and reconciled with the patientNot-Taking/PRN Gabapentin 400 MG Capsule 1 tablet Orally Once a dayNot-Taking/PRN Viagra 20mg 1 tablet as needed Not-Taking/PRN Xiidra 5 % Solution 1 drop into affected eye Ophthalmic Twice a dayNot-Taking/PRN metFORMIN HCl 500 MG Tablet Oral Not-Taking/PRN Melatonin Not-Taking/PRN clonazePAM 0.25 MG Tablet Disintegrating 1 tablet Orally Once a dayNot-Taking/PRN Econazole Nitrate twice a dayNot-Taking/PRN Magnesium Not-Taking/PRN cloNIDine HCl 0.1 MG Tablet 1 tablet at bedtime Orally Not-Taking/PRN Tolnaftate 1 % Aerosol Powder Externally prnMedication List reviewed and reconciled with the patient * Allergies:?Shellfish-derived ProductsCodeineyes[Allergies Verified] Objective: * Vitals:?Ht: 5ft 7in, Wt:223, BMI:34.92, Shoe size:9-10, BP:118/72 mm Hg, BS:118. * ???Past Orders: ???Lab:HEMOGLOBIN A1C (GLYCO HEMOGLOBIN) (Order Date - 11/22/2023) (Collection Date - 11/07/2023) ? Value Reference Range ?HEMOGLOBIN A1C (HH) 5.4 * Examination: ???Nails: ?NAILS are:?Elongated, overgrown, dystrophic, lytic, greater than 3mm thick, discolored and friable with crumbly malodorous subungual debris, with pain on palpation, TA, T1, T2, T4, T5, T6, T7, T9.? Assessment: * Assessment: 1.?Tinea unguium - B35.1?2.? Pain in right toe(s) - M79.674?3.?Pain in left toe(s) - M79.675? Plan: * Treatment: * Procedures:?Debride Nail 6-10:?Nail debridement?Nail debridement performed extensively to reduce/remove overall nail length, girth, thickness, subungual debris, and necrotic tissue, by manual and electrical means through the use of a nail nipper and/or dremel, to more viable healthy nail plate or bed tissue 1-5. Silver nitrate used for any petechial bleeding as necessary. Patient chooses, no pharmaceutical tx (84147).? * Procedure Codes:?85451 DEBRI DE NAIL, 6 OR MORE * Follow Up:?prn * Images: * Sign off status: Completed Addendum: * ? true * Provider:?Yung Ritter DPM Date:?2023 Generated for Pierre han/Sheila/Jeremiah on:?05/25/2024 02:03 PM EST History and Physical Notes * HPI (History of Present Illness) Category Sub-Category Detail Notes Category Not es Painful Nails Pt States Last PCP Visit: Date:: 11/09/2023 Examination Category Sub-Category Detail Notes Category Not es Nails NAILS are: Elongated, overg rown, dystrophic, lytic, greater than 3mm thick, discolored and friable with crumbly malodorous subungual debris, with pain on palpation, TA, T1, T2, T4, T5, T6, T7, T9
--- OUTSIDE RECORDS SUMMARY | 2024-05-25 14:04 | XMS_ITS | Continuity of Care Document ---
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 Prospecting Permit Agent Name Role Phone Mildred RUIZ, Vitor Griffith Primary Care Physician [place] [facility] [place] 05/17/24 [facility] Adult [address] [place] [address]- Encounter Type: Triage Allergies, Adverse Reactions, Alerts Substance Criticality Severity Reaction Reaction Severity Status codeine Unknown Active shellfish 1 anaphelaxis Active traZODone Rapid heartbeat Acti ve 1Mostly only scallops Immunizations Given and Recorded Vaccine Date Status Refusal Reason influenza virus vaccine, inactivated 02/10/24 Paco rded influenza virus vaccine, inactivated 02/22/23 Paco rded influenza virus vaccine, inactivated 03/31/22 Paco rded influenza virus vaccine, inactivated 02/11/21 Paco rded influenza virus vaccine, inactivated 02/13/20 Paco rded influenza virus vaccine, inactivated 1 02/26/19 Gi yary SARS-CoV-2(COVID-19)mRNA-LNP vac(ngj774) 02/10/24 Recorded SARS-CoV-2(COVID-19)mRNA-LNP vac(qmd526) 03/17/23 Recorded pneumococcal 20-valent conjugate vaccine 03/17/23 Recorded [id number] bivalent booster vax 03/31/22 Recorded SARS-CoV-2 (COVID-19) mRNA-1273 vaccine 2 12/27/21 Recorded SARS-CoV-2 (COVID-19) mRNA-1273 vaccine 04/14/21 R ecorded tetanus/diphtheria/pertussis, acel(Tdap) 3 05/05/21 Given tetanus/diphtheria/pertussis, acel(Tdap) 12/01/11 Recorded SARS-CoV-2 (COVID-19) mRNA BNT-162b2 vac 10/10/20 Recorded SARS-CoV-2 (COVID-19) mRNA BNT-162b2 vac 09/19/20 Recorded Zoster Vaccine Live 4 08/07/19 Recorded Zoster Vaccine Live 5 05/11/19 Recorded 1Result Comment: [id number] 2Result Comment: [facility] 3Result Comment: [facility]# [id number] 4Result Comment: Received at [facility] 5Result Comment: [facility] Medications atorvastatin 10 mg oral tablet 1 tablet, By Mouth, Daily, # 90 tablet, 1 Refills, Maintenance, 03/03/24 9:48:00 AM EDT, [facility]26, 168.2, cm, 03/01/24 14:33:00 EDT, Height, 111.9, kg, 02/09/23 8:40:00 EDT, Dry Weight Start Date: 03/03/24 Status: Ordered Quantity: 90.0 Unit: tablet Repeat number: 1 busPIRone 7.5 mg oral tablet 1 tablet = 7.5 mg, By Mouth, 2 times a day, 0 Refills, Maintenance, 05/03/22 2:01:00 PM EST, Partial fill upon patient request if the prescription is for a schedule II opioid drug. Start Date: 05/03/22 Status: Ordered Repeat number: 1 clomiPHENE 50 mg oral tablet 25 mg, 0.5, tablet, By Mouth, Daily, Urologist, Refills 0, Maintenance, 08/01/19 2:52:00 PM EST Start Date: 08/01/19 Status: Ordered Repeat number: 1 DEXCOM G6 1 THREE PACK SENSORS DEXCOM G6 1 THREE PACK SENSORS, See Instructions, # 3 each, Refills 11, Tot. Refills 11, Maintenance, CHANGE SENSOR EVERY 10 DAYS., 03/09/24 3:06:00 PM EDT, Supply, 168.2, cm, 03/01/24 14:33:00 EDT, Height, 111.9, kg, 02/09/23 8:40:00 EDT, Dry Weight Start Date: 03/09/24 Status: Ordered Quantity: 3.0 Unit: each Repeat number: 12 escitalopram 10 mg oral tablet 1 tablet, By Mouth, Daily, # 90 tablet, 1 Refills, Maintenance, 03/06/24 4:00:00 AM EDT, [facility] 57269, 168.2, cm, 03/01/24 14:33:00 EDT, Height, 111.9, kg, 02/09/23 8:40:00 EDT, Dry Weight Start Date: 03/06/24 Status: Ordered Quantity: 90.0 Unit: tablet Repeat number: 1 Fish Oil = 1,200 mg, By Mouth, Daily, 0 Refills, Maintenance, 12/11/21 2:06:00 PM EDT, Partial fill upon patient request if the prescription is for a schedule II opioid drug. Start Date: 12/11/21 Status: Ordered Repeat number: 1 gabapentin 400 mg oral capsule 1, capsule, By Mouth, Daily at bedtime, # 90 capsule, Refills 3, Maintenance, 03/06/24 4:00:00 AM EDT, Route to Pharmacy Electronically, [facility]5865, 168.2, cm, 03/01/24 14:33:00 EDT, Height, 111.9, kg, 02/09/23 8:40:00 EDT, Dry Weight Start Date: 03/06/24 Status: Ordered Quantity: 90.0 Unit: capsule Repeat number: 1 lisinopril 10 mg oral tablet 1, tablet, By Mouth, Daily, # 90 tablet, Refills 3, Tot. Refills 3, Maintenance, 10/21/23 1:22:00 PMEDT, Route to Pharmacy Electronically, [facility]/pharmacy #[id number], 168.2, cm, 10/21/23 13:00:00 EDT, Height, 111.9, kg, 02/09/23 8:40:00 EDT, Dry Weight Start Date: 10/21/23 Status: Ordered Quantity: 90.0 Unit: tablet Repeat number: 4 loperamide 2 mg oral capsule 2 mg, 1, capsule, By Mouth, Every 4 hours, PRN, # 60 capsule, Refills 0, Maintenance, for loose stool, 03/01/24 2:32:00 PM EDT, Partial fill upon patient request if the prescription is for a schedule II opioid drug. Start Date: 03/01/24 Status: Ordered Quantity: 60.0 Unit: capsule Repeat number: 1 melatonin 10 mg oral tablet, disintegrating 1 tablet = 10 mg, By Mouth, Daily at bedtime, To be taken in addition to extended release 10 mg tab, 0 Refills, Maintenance, 03/01/24 2:27:00 PM EDT, Partial fill upon patient request if the prescription is for a schedule II opioid drug. Start Date: 03/01/24 Status: Ordered Repeat number: 1 melatonin 10 mg oral tablet, extended release 1 tablet = 10 mg, By Mouth, Daily at bedtime, To be taken in addition to quick release 10mg tablet,0 Refills, Maintenance, 03/01/24 2:27:00 PM EDT, Partial fill upon patient request if the prescription is for a schedule II opioid drug. Start Date: 03/01/24 Status: Ordered Repeat number: 1 metFORMIN 1000 mg oral tablet 1 tablet, By Mouth, 2 times a day, # 180 tablet, 3 Refills, Maintenance, 04/22/24 2:54:00 AM EST, [facility]/pharmacy #[id number], 168.2, cm, 03/01/24 14:33:00 EDT, Height, 111.9, kg, 02/09/23 8:40:00 EDT, Dry Weight Start Date: 04/22/24 Status: Ordered Quantity: 180.0 Unit: tablet Repeat number: 4 Multivitamin Daily, 0 Refills, Maintenance, 12/11/21 2:06:00 PM EDT, Partial fill upon patient request if the prescription is for a schedule II opioid drug. Start Date: 12/11/21 Status: Ordered Repeat number: 1 Probiotic Formula By Mouth, Daily, 0 Refills, Maintenance, 08/06/22 8:34:00 AM EST, Partial fill upon patient request if the prescription is for a schedule II opioid drug. Start Date: 08/06/22 Status: Ordered Repeat number: 1 Rybelsus 7 mg oral tablet 1 tablet, By Mouth, Daily, # 30 tablet, 5 Refills, Maintenance, 04/03/24 9:57:00 AM EDT, [facility], 168.2, cm, 03/01/24 14:33:00 EDT, Height, 111.9, kg, 02/09/23 8:40:00 EDT, Dry Weight Start Date: 04/03/24 Status: Ordered Quantity: 30.0 Unit: tablet Repeat number: 1 tadalafil 20 mg oral tablet 1 tablet = 20 mg, By Mouth, Daily, PRN as needed, 1 hour before sexual activity, # 5 tablet, 0 Refills, Maintenance, 03/01/24 2:31:00 PM EDT, Tablet, Partial fill upon patient request if the prescription is for a schedule II opioid drug. Start Date: 03/01/24 Status: Ordered Quantity: 5.0 Unit: tablet Repeat number: 1 tadalafil 5 mg oral tablet 1 tablet = 5 mg, By Mouth, Daily, 0 Refills, Maintenance, 03/01/24 2:31:00 PM EDT, Partial fill uponpatient request if the prescription is for a schedule II opioid drug. Start Date: 03/01/24 Status: Ordered Repeat number: 1 Vitamin E = 800 mg, By Mouth, Daily, 0 Refills, Maintenance, 09/28/18 12:05:49 PM EDT Start Date: 09/28/18 Status: Ordered Repeat number: 1 Problem List Condition Confirmation Course Effective Dates Status H ealth Status Informant Arthritis Confirmed Active Family history of ovarian cancer Confirmed Active Insomnia Confirmed Active Irritable bowel syndrome with constipation and diarrhea Confirmed Active Hypogonadism male Confirmed Active Mild major depression Confirmed Active Obstructive sleep apnea - mild Confirmed Active PTSD (post-traumatic stress disorder) Confirmed Active Prediabetes Confirmed Active shelter prescription benzodiazepine use Confirmed Active Severe obesity (BMI 35.0-39.9) with comorbidity Confirmed Active Hepatic steatosis Confirmed Active Social History Social History Type Response Smoking Status Former smoker, quit more than 30 days ago; Other: Social smoker quit 30 years ago, 1988; entered on: 08/06/22 Sex Sex Representation Male (finding) Implantable Device List Procedure Provider Procedure Date Device Type Site Repair Hernia Umbilical Laparoscopic Tom Walker MD 02/09/23 Unknown Abdomen Device Identifier Serial Number Lot or Batch Number Manufacturing Date Expiration Date Distinct Identification Code MRI Safety Implantable Status Assigning Authority Unknown [id number] Unknown 03/03/24 Unknown Unknown Active Unknown Patient Care team information Care Team Personnel Name: Vitor Levy MD Position: [facility] Physician - Primary Care Member Role: PCP Address: [address] [place] [address], [place] [address]- [place] Telecom: Care Team Related Persons Name: HERBERT WILLIS Name: JANIA [place] Insurance Providers Guarantor name: GONSALO WILLIS Health Plan Information #: 1 Payer: [employer] Member Number: NA Policy Number: NA Group Number: NA
--- OUTSIDE RECORDS SUMMARY | 2024-05-25 14:04 | XMS_ITS | Continuity of Care Document ---
Author Organization [facility] Address [address] [place] [address]- Care Team Providers Care Chemical Processing Supervisor Name Role Phone Mildred RUIZ, Vitor Griffith Primary Care Physician Encounter [facility] [place] Date(s): 04/09/24 - 05/09/[address] [address] Attending Physician: AdmPorter claros Admitting Physician: AdmtrPorter Referring Physician: Admtr [id number] Encounter Type: Triage Allergies, Adverse Reactions, Alerts [...] vaccine, inactivated 1 02/26/19 Gi yary SARS-CoV-2(COVID-19)mRNA-LNP vac(aaw155) 02/10/24 Recorded SARS-CoV-2(COVID-19)mRNA-LNP vac(xit448) 03/17/23 Recorded pneumococcal 20-valent conjugate vaccine 03/17/23 Recorded [id number] bivalent booster vax 03/31/22 Recorded SARS-CoV-2 (COVID-19) mRNA-1273 vaccine 2 12/27/21 Recorded SARS-CoV-2 (COVID-19) mRNA-1273 vaccine 04/14/21 R ecorded tetanus/diphtheria/pertussis, acel(Tdap) 3 05/05/21 Given tetanus/diphtheria/pertussis, acel(Tdap) 12/01/11 Recorded SARS-CoV-2 (COVID-19) mRNA BNT-162b2 vac 10/10/20 Recorded SARS-CoV-2 (COVID-19) mRNA BNT-162b2 vac 09/19/20 Recorded Zoster Vaccine Live 4 08/07/19 Recorded Zoster Vaccine Live 5 05/11/19 Recorded 1Result Comment: [id number] 2Result Comment: [facility] 3Result Comment: [facility]# [id number] 4Result Comment: Received at [facility] 5Result Comment: [facility] Medications atorvastatin 10 mg oral tablet 1 tablet, By Mouth, Daily, # 90 tablet, 1 Refills, Maintenance, 03/03/24 9:48:00 AM EDT, [facility] [address], 168.2, cm, 03/01/24 14:33:00 EDT, Height, 111.9, [...] 1 Refills, Maintenance, 03/06/24 4:00:00 AM EDT, [facility]30, 168.2, cm, 03/01/24 14:33:00 EDT, Height, 111.9, [...] 4:00:00 AM EDT, Route to Pharmacy Electronically, [facility] [address]692, 168.2, cm, 03/01/24 14:33:00 EDT, Height, 111.9, kg, 02/09/23 8:40:00 EDT, Dry Weight Start Date: 03/06/24 Status: Ordered Quantity: 90.0 Unit: capsule Repeat number: 1 lisinopril 10 mg oral tablet 1, tablet, By Mouth, Daily, # 90 tablet, Refills 3, Tot. 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
--- OUTSIDE RECORDS SUMMARY | 2024-05-25 14:04 | XMS_ITS | Patient Health Record ---
Author Organization [facility] Address [address] [place] [address] Care Team Providers Care Resident Care Assistant Name Role Phone Mildred RUIZ, Vitor Primary Care Provider Yung Gutierres Unavailable [phone] Allergies Allergen (clinical drug ingredient) Drug/Non Drug Allergy documented on EMR Reaction Allergy Type Onset Date Status codeine Codeine Unknown Drug Allergy Active Shellfish (FN) Shellfish-derived Products Unknown Drug Allergy Active trazodone Trazodone rapid heart rate Drug Allergy Active Results Component Value Reference Range Notes HEMOGLOBIN A1C (GLYCOHEMOGLO BIN) Reviewed date:11/22/2023 03:08:32 PM Interpretation: Performing Lab: Notes/Report: HEMOGLOBIN A1C (HH) 5.4 HEMOGLOBIN A1C (GLYCOHEMOGLO BIN) Reviewed date:05/25/2024 10:35:15 AM Interpretation: Performing Lab: Notes/Report: TOTAL HEMOGLOBIN (HGBA1C) 6.0 Reason For Referral No Information Medications Medication SIG (Take, Route, Frequency, Duration) Notes Start Date End Date Status Vitamin E Active Extra Depth Orthopedic Shoes (1 Pair) with Customized Heat Molded Multidensity Innersoles (3 Pair) as directed Dx: NIDDM (E11.9), Hammertoe Foot Deformity (M20.41,M20.42), Preulcerative Skin Lesion(s) (L85.1) 07/26/2023 Active metFORMIN HCl 500 MG Oral for 90 Active clonazePAM 0.25 MG 1 tablet Orally Once a day Not-Taking Econazole Nitrate twice a day Not-Taking Atorvastatin Calcium Active Magnesium Not-Taking Rybelsus 7 MG 1 tablet at least 30 minutes before first food, beverage or other oral medicine of the day Orally Once a day for 30 day(s) Active Gabapentin 400 MG 1 tablet Orally Once a day Active Viagra 20mg 1 tablet as needed Not-Taking Xiidra 5 % 1 drop into affected eye Ophthalmic Twice a day Not-Takin g Melatonin Not-Taking Cialis Active cloNIDine HCl 0.1 MG 1 tablet at bedtime Orally Not-Taking Tolnaftate 1 % Externally prn Not-Taking Advil Dual Action Ac tive busPIRone HCl 10 MG 1 tablet Orally Twic e a day Active Probiotic Active Ammonium Lactate 12 % 1 application Exte rnally to affected areas of dry skin to feet except for between the toes Twice a day for 30 days Active Multi Vitamin Mens A ctive metFORMIN HCl 1000 MG 1 tablet with a me al Orally Once a day Active Rybelsus 7 MG as directed Orally Active Clomid 50mg every other day Ac tive Lexapro 10 MG 1 tablet Orally Once a day Active Lisinopril 5 MG 1 tablet Orally Once a day Active Fish Oil 1200mg Once a day Act renata Immunizations Vaccine Route Administration Date Status Comme nts COVID-19 Pfizer BioNTech Vaccine Unknown 03/05/2022 Administered 09/19/20,10/10/20 04/12/21 Influenza Unknown 03/05/2022 Administered Influenza Unknown 02/04/2023 Administered Social History Tobacco Use: Social History Observation [...] Problem Status W/U Status Risk Notes Problem Acquired hammer toe of right foot (896953078339130 5) Other hammer toe(s) (acquired), right foot (M20.41) Active confirmed Problem Acquired hammer toe of left foot (790445221236578 3) Other hammer toe(s) (acquired), left foot (M20.42) Active confirmed Problem [id number] Tinea unguium (B35.1) Active confirmed Problem Type 2 diabetes mellitus without complication (636240827) Type 2 diabetes mellitus without complication (E11.9) Active confirmed Vital Signs Blood pressure diastolic 70 mm Hg 05/25/2024 Height 5ft 7in in 05/25/2024 Blood pressure systolic 120 mm Hg 05/25/2024 Weight 223 lbs 05/25/2024 BMI 34.92 kg/m2 05/25/2024 Procedures Procedure Date Ordered Date Performed Result Body Sit e 37518-GCPZNWI NAIL, 6 OR MORE 07/26/2023 N/A 71382-MANSTIE NAIL, 6 OR MORE 11/22/2023 N/A 80730-EJVFFKL NAIL, 6 OR MORE 05/25/2024 N/A Encounters Encounter Location Date Provider Diagnosis [address] [address] 07/26/2023 Yung Ritter Pain in right toe(s) M79.674 ; Tinea unguium B35.1 ; Pain in left toe(s) M79.675 ; Type 2 diabetes mellitus without complication E11.9 ; Other hammer toe(s) (acquired), left foot M20.42 and Other hammer toe(s) (acquired), right foot M20.[address] [address] 11/22/2023 Yung Ritter Tinea unguium B35.1 ; Pain in right toe(s) M79.674 and Pain in left toe(s) M79.[address] [address] 05/25/2024 Yung Ritter Tinea unguium B35.1 ; Pain in right toe(s) M79.674 ; Pain in left toe(s) M79.675 and Xerosis of skin L85.[address] [address] 10/17/2023 Yung Ritter Assessments Encounter Date Diagnosis (ICD Code) Assessment Notes Treatment Notes Treatment Clinical Notes Section Notes 07/26/2023 Pain in right toe(s) (ICD-10 - M79.674) 11/22/2023 Tinea unguium (ICD-10 - B35.1) 11/22/2023 Pain in right toe(s) (ICD-10 - M79.674) 05/25/2024 Tinea unguium (ICD-10 - B35.1) 05/25/2024 Pain in right toe(s) (ICD-10 - M79.674) 05/25/2024 Pain in left toe(s) (ICD-10 - M79.675) 11/22/2023 Pain in left toe(s) (ICD-10 - M79.675) 07/26/2023 Tinea unguium (ICD-10 - B35.1) 07/26/2023 Pain in left toe(s) (ICD-10 - M79.675) 05/25/2024 Xerosis of skin (ICD-10 - L85.3) 07/26/2023 Type 2 diabetes mellitus without complication (ICD-10 - E11.9) 07/26/2023 Other hammer toe(s) (acquired), left foot (ICD-10 - M20.42) 07/26/2023 Other hammer toe(s) (acquired), right foot (ICD-10 - M20.41) Patient Educated with: DIABETIC FOOT CARE INSTRUCTIONS.p df (DIABETIC FOOT CARE INSTRUCTIONS.p df) Plan Of Treatment Pending Test Test Name Order Date 09377-QCAKPXK NAIL, 6 OR MORE 04/09/2016 18146-TVGRUBL NAIL, 6 OR MORE 01/09/2016 69066-JEVEGEP NAIL, 6 OR MORE 08/03/2022 87131-LJDFMAD NAIL, 6 OR MORE 11/26/2022 71638-PHTIUAF NAIL, 6 OR MORE 04/01/2023 46568-PHGSMOW NAIL, 6 OR MORE 07/26/2023 84042-WGGSUCS NAIL, 6 OR MORE 11/22/2023 08800-SZYOSBW NAIL, 6 OR MORE 05/25/2024 09660-Xbdpphjj Plate 11/14/2020 94148-Lumwczdj Plate 07/14/2018 82265-Qhstxuti Plate 10/13/2018 56841-Fjwbkzyk Plate 03/06/2019 45512-Nodmycas Plate 06/19/2019 42272-Jfdkeopk Plate 11/30/2019 11244-Cadrbcev Plate 01/09/2016 72130-Llwvqabf Plate 10/08/2016 46837-Pzvmcqmf Plate 04/09/2016 90853-Twlvdrjc Plate 07/09/2016 06764-Ifbzxpxe Plate 01/14/2017 50487-Zeseuqls Plate 10/07/2017 25459-Ctyslmmi Plate 01/06/2018 89386-Qloyqzot Plate 04/07/2018 91512-Jdoqtcst Plate Each Additional 01/2019 74988-Facahtjy Plate Each Additional 07/2017 95906-Gagypuee Plate Each Additional 08/2017 62519-Vkjsvvwh Plate Each Additional 09/2017 71691-Mojqvyia Plate Each Additional 10/2016 15143-Epimfwrr Plate Each Additional 04/2017 37372-Eixnotqx Plate Each Additional 03/2019 49459-JDE 11/03/2018 00403-DRL 12/14/2019 54887- Debride <25 sq cm 12/04/2018 75019- Debride <25 sq cm 01/22/2020 43383-GQPEIUS SKIN/TISSUE 12/31/2019 37627-OWKXNYQ SKIN/TISSUE 01/08/2020 74442-WIUBXRU SKIN/TISSUE 11/17/2018 Next Appt Details Provider Name:Yung Ritter , 11/23/2024 08:45:00 AM, [address] [place], [address], Insurance Providers Payer Name Payer Address Payer Phone Subscriber Number Group Number Insured Name Patient Relationship to Insured Coverage Start Date Coverage End Date [facility] [address] [place] [address] [id number] Greyson Hernández Self - patient is the insured Medical (General) History Medical History History ICD Code Anxiety Depression Psychiatric disorder Chicken pox fused lambar vertabrae metabolic syndrome - LIVER DISEASE Type II diabetes Umbilical hernia torn meniscus Surgical History Surgery Date(Month/Year) urological 05/23/2013 endoscopy 05/09/2019 Hernia repair 02/09/23
--- OUTSIDE RECORDS SUMMARY | 2024-05-25 14:04 | XMS_ITS | Data Portability ---
Author Organization [facility], [facility] Address [address] [place] [address] Assessment No assessment recorded. Plan of Treatment Reminders Order Date Submit Date Provider Last Modified By Organization Details Last Modified Time Details Appointments None record ed. Lab None record ed. Referral None record ed. Procedures None record ed. Surgeries None record ed. Imaging None record ed. Medication Orders None record ed. Patient TargetsNo targets recorded. Patient InstructionsNo instructions recorded. Reason for Referral None Reported. Results Created Date Observation Date Name Description Value Unit Range Abnormal Flag Note LastModifiedBy Organization Detail LastModifiedTime Result Notes None recorded. Procedures Surgical History Date Name Laterality Status Provider Name and Address Organization Details Recorded Time Maria Del Carmen - Colonoscopy completed Seb Maria Del Carmen[address], [address], [facility] 04/27/2016 11:47:20 Imaging Results None recorded. Procedure Notes None recorded. Medical Equipment None Reported. Medications Name Sig Start Date Stop Date Status Note LastModified by Organization Details LastModified Time clonazepam 1 mg tablet active Not Available Not Available Not Available prochlorperazine maleate 10 mg tablet active Not Available Not Available Not Available betamethasone valerate 0.1 % topical cream active Not Available Not Availabl e Not Available clotrimazole-betam ethasone 1 %-0.05 % topical cream active Not Available Not Availa ble Not Available peg 3350-electrolytes 236 gram-22.74 gram-6.74 gram-5.86 gram solution active Not Available Not Available Not Available Vitals None Recorded Social History None recorded. Functional Status None recorded. Mental Status None recorded. Family History Nothing Reported. Medical History No medical history recorded. Past Encounters Encounter ID Performer Location Encounter Start Date Encounter Closed Date Diagnosis/Indication Diagnosis SNOMED-CT Code Diagnosis ICD10 [id number] [facility] [address] [address] 04/27/2016 09:56:47 04/27/2016 14:18:41 Health Concerns Section Related Observation LastModified by Organization Detai ls LastModified Time None Recorded Concern Status LastModified by Organization Details LastModified Time None Recorded Advance Directives Directive None Recorded Payers Encounter Date Sequence Insurance Name Policy Number Policy Good Covered Member ID Good Member ID Guarantor Name 04/27/2016 1 DMITRI: KYARA (PPO) [id number] Greyson Hayden [id number] Greyson Hayden
== END 2024-05-25 14:37 | disposition home or self-care (01) ==
PROVIDERS: PCP Family Medicine; Visit Provider Urology
DX: R35.1 Nocturia (principal); E11.69 Type 2 diabetes mellitus with other specified complication; N52.1 Erectile dysfunction due to diseases classified elsewhere
CPT/HCPCS: 99213

== ENCOUNTER → 2024-05-25 14:01 | Outpatient (BNVA) | payer BC, SELFPAY | PROVIDERS: PCP Family Medicine; Visit Provider Urology ==

== ENCOUNTER 2024-11-23 10:03 | Outpatient (AMB) | payer BC, SELFPAY ==
--- NOTE | 2024-11-23 10:16 | MHC.OFFVIS ---
Intake Visit Reasons: 6m/labs Intake Note: Patient is present for 6M/LABS Urology Medication:TADALAFIL Antibiotic Allergy:NONE Blood Thinner:NONE Racing Secretary Required: No Allergies codeine Allergy (Unknown, Verified 11/23/24 10:17) unknown shellfish derived Allergy (Verified 11/23/24 10:17) Anaphylaxis trazodone Adverse Reaction (Verified 11/23/24 10:17) Palpitations HPI Comments Details: Greyson WILLIS is a very pleasant male. He is a patient of Dr Levy. He is seen for the following urologic conditions. - hypogonadism - lower urinary tract symptoms - erectile dysfunction in setting of diabetes Six-month office visit Had been on clomiphene 1/2 tab every 3rd day 11/27 T 987, 05/29 T 1000 E 50, 11/28 T 850 Daily tadalafil for erectile dysfunction - has helped On semaglutide and metformin - has dropped weight. 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 Associate conditions include obstructive sleep apnea No CAD No dyslipidemia Yes hypertension Yes obesity Yes stress - financial, family, employment No heavy alcohol or illicit drug use No Laboratory results 05/24 T 274 06/25 T 273 FSH 7.6 LH 7.0 09/23 T 715 FSH 12.5. - 03/25 T 940 PSA 0.9 FSH 12, 03/26 T 405, LH 7 - 09/25 T 660 P 1.0 FSH 11.8, 03/27 T 564 LH 8.9 Est , 09/26 T 591 E 17 Therapeutic plan baseline evaluation of testicular function. Doing well. Review in 6 months Lower Urinary Tract Symptoms: Current visit is for further evaluation of, lower urinary tract symptoms, predominate obstructive symptoms. Current treatment includes observation. Prostate Symptom Score 04/23 , Mild (0-8), Bother 2. Symptoms include 04/22 , incomplete emptying, intermittency, weak stream, and are stable 04/23 , weak stream, nocturia (>2). Prior Prostate Score mild. PSA 04/22 1.1 04/23 1.2 04/24 1.1 Prostate volume < 30 gm. [facility] Medical History Male circumcision Hypogonadism in male Low libido History of urinary hesitancy Weak urinary stream Benign prostatic hyperplasia with lower urinary tract symptoms Nocturia Review of Systems Const Denies chills and Denies fever(s) Card Reports no additional complaints and Denies syncope Resp Denies cough GI Denies abdominal pain and Denies heartburn Reports as per HPI and Denies change in libido Neuro Denies syncope Psych Denies change in libido Endo Denies change in libido Physical Exam Const General: cooperative, healthy appearing, comfortable and no acute distress Orientation/consciousness: patient oriented x3 HEENT Face and sinus: Yes normal facial exam Mouth: moist mucous membranes Neck Neck: Yes normal visual inspection, Yes full ROM and Yes trachea midline Chest Chest palpation & inspection: normal inspection of the chest Resp Effort & Inspection: normal respiratory effort, able to speak in complete sentences and no respiratory distress GI Inspection: Yes normal to inspection Back/Spine/Pelvis Cervical Spine: normal cervical lordosis Thoracic/Lumbar Spine: thoracic and lumbar spine normal to inspection Skin General skin exam: no rashes or lesions noted Neuro General: patient oriented x3, gait normal, tone normal and moves all extremities Extrem General: Yes normal to inspection and Yes capillary refill normal Assessment & Plan Assessment & Plan (1) Erectile dysfunction associated with type 2 diabetes mellitus: Code(s): E11.69 - Type 2 diabetes mellitus with other specified complication; N52.1 - Erectile dysfunction due to diseases classified elsewhere Category: Medical (2) Nocturia: Code(s): R35.1 - Nocturia Category: Medical (3) Hypogonadism in male: Code(s): E29.1 - Testicular hypofunction Category: Medical Plan Six-month follow-up lab work office Orders: Orders Testosterone, Total 6 Months E29.1 - Testicular hypofunction Estradiol Ultra Sensitive 6 Months E29.1 - Testicular hypofunction Patient Instructions: This note is constructed using voice recognition software. While every effort has been made to ensure accuracy rn neonatal errors may have been included. Imaging studies, laboratory and physical exam results were discussed and reviewed in detail. No major barriers to patient understanding were identified. An opportunity to ask questions regarding the treatment plan was provided. All questions were answered. The patient expressed understanding and agreement with the above treatment plan. The patient is aware they should contact our office by phone for worsening of their current condition or the appearance of new urologic symptoms. Compliance is encouraged with any medications and followup testing that is ordered. It is a privilege to participate in the urologic care of your patient. If you have any questions or concerns regarding treatment for the above conditions, or other urologic issues, please do not hesitate to contact me. The office telephone contact is [phone]. Sincerely, Dr Bhargav Tobar MD, [facility] - Urology Compassionate Specialist Care for the Genitourinary System Coding Level of Care Code Est Pt Level 3 (84433) Complex EM visit Add On G2211 Diagnoses Erectile dysfunction associated with type 2 diabetes mellitus E11.69; N52.1 Nocturia R35.1 Hypogonadism in male E29.1
--- OUTSIDE RECORDS SUMMARY | 2024-11-23 10:19 | XMS_ITS | Data Portability ---
Author Organization [facility], [facility] Address [address] [place] [address] Assessment No assessment recorded. Plan of Treatment [...] Carmen - Colonoscopy completed Seb Maria Del Carmen[address], [phone], [facility] 04/27/2016 11:47:20 Imaging Results None recorded. Procedure [...] Diagnosis/Indication Diagnosis SNOMED-CT Code Diagnosis ICD10 Code Diagnosis Note [id number] [facility] [address] [address] 04/27/2016 09:56:47 04/27/2016 14:18:41 Health Concerns Section Related Observation LastModified by Organization Detai ls LastModified Time None Recorded Concern Status LastModified by Organization Details LastModified Time None Recorded Advance Directives Directive None Recorded Payers Insurance Date Sequence Insurance Name Policy Number Policy Good Covered Member ID Good Member ID Guarantor Name 05/07/2016 1 DMITRI (PPO) [id number] Greyson Hayden [id number] Greyson Hayden
== END 2024-11-23 11:00 | disposition home or self-care (01) ==
LOC: HO.HUSH 10:03
PROVIDERS: PCP Family Medicine; Visit Provider Urology
DX: E11.69 Type 2 diabetes mellitus with other specified complication (principal); N52.1 Erectile dysfunction due to diseases classified elsewhere; R35.1 Nocturia; E29.1 Testicular hypofunction
CPT/HCPCS: 99213

== ENCOUNTER → 2024-11-23 10:03 | Outpatient (BNVA) | payer BC, SELFPAY | PROVIDERS: PCP Family Medicine; Visit Provider Urology ==

== ENCOUNTER 2025-05-24 10:48 | Outpatient (AMB) | payer BC, SELFPAY ==
--- OUTSIDE RECORDS SUMMARY | 2023-11-29 09:45 | XMS_ITS ---
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 Name Role Phone Mildred RUIZ, Vitor Primary Care Provider Yung Gutierres Unavailable [phone] Encounters Encounter Location Date Provider Diagnosis [address] [address] 11/29/2023 Yung Ritter Plan Of Treatment Next Appt Details Provider Name:Yung Ritter , 11/22/2025 08:45:00 AM, [address] [place], [address], Progress Notes * Greyson HAYDENDOB: [birth year] (60 yo M)Acc No.[id number]:11/29/2023 Progress Note Patient: Greyson MCCOY Provider: Daniela Ritter DPM :1965 A ge:58 Y S ex:Male Date:11/29/2023 Address:[address] [place] [address] Pcp:Vitor Levy MD Subjective: * Chief Complaints: * * Medical History: Objective: * Vitals: Assessment: Plan: * Treatment: * Images: * The named appointment provid er may or may not be the originator of this progress note, and it is not deemed complete until electronically signed by the appointment provider. Sign off status: Pending * Provider: Daniela Ritter DPM Date: 0 11/29/2023 Generated for Pierre han/Sheila/Jeremiah on: 1 07/25/2024 12:35 PM EST
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
--- OUTSIDE RECORDS SUMMARY | 2025-05-24 03:45 | XMS_ITS ---
Author Organization [facility] [place] Address [address] [place] [address] Care Team Providers Care Cytology Laboratory Manager Name Role Phone Vitor Levy MD Primary Care Provider Yung Gutierres Unavailable [phone] Allergies Allergen (clinical drug ingredient) Drug/Non Drug Allergy documented on EMR Reaction Allergy Type Onset Date Status codeine Codeine Unknown Drug Allergy Active Shellfish (FN) Shellfish-derived Products Unknown Drug Allergy Active trazodone Trazodone rapid heart rate Drug Allergy Active REASON FOR VISIT At Risk Footcare, Painful Nail(s) aggravated by shoes and causing difficulty standing/walking. Medications Medication SIG (Take, Route, Frequency, Duration) Notes Start Date End Date Status metFORMIN HCl 500 MG Oral; Duration: 90 2 X A DAY Active Extra Depth Orthopedic Shoes (1 Pair) with Customized Heat Molded Multidensity Innersoles (3 Pair) as directed Dx: NIDDM (E11.9), Hammertoe Foot Deformity (M20.41,M20.42), Preulcerative Skin Lesion(s) (L85.1) 07/26/2023 Active Vitamin E Active Rybelsus 7 MG as directed Orally Active metFORMIN HCl 1000 MG 1 tablet with a me al Orally Once a day Active Fish Oil 1200mg Once a day Act renata Lisinopril 5 MG 1 tablet Orally Once a day Active Lexapro 5 MG 1 tablet Orally Once a day Active Multi Vitamin Mens A ctive Probiotic Active busPIRone HCl 10 MG 1 tablet Orally Twic e a day Active Advil Dual Action Ac tive Cialis Active Rybelsus 7 MG 1 tablet at least 30 minutes before first food, beverage or other oral medicine of the day Orally Once a day; Duration: 30 day(s) Active Clomid 50mg every other day Ac tive Tolnaftate 1 % Externally prn Not-Taking cloNIDine HCl 0.1 MG 1 tablet at bedtime Orally Not-Taking Atorvastatin Calcium Active Wellbutrin 150 mg Active Naproxen PRN Active Magnesium Not-Taking Xiidra 5 % 1 drop into affected eye Ophthalmic Twice a day Not-Taking Melatonin Not-Taking Econazole Nitrate twice a day Not-Taking clonazePAM 0.25 MG 1 tablet Orally Once a day Not-Taking Viagra 20mg 1 tablet as needed Not-Taking Ammonium Lactate 12 % 1 application Externally to affected areas of dry skin to feet except for between the toes Twice a day; Duration: 30 days Active Gabapentin 400 MG 1 tablet Orally Once a day Active Social History Tobacco Use: Social History Observation Description Date Details (start date - stop date) Never Smoker NA - NA Tobacco use other than smoking: Question Answer Notes Are you an other tobacco user? No Tobacco Control (Standard) Question Answer Notes Tobacco use: Nonsmoker Additional Findings: Tobacco non-user Current no nsmoker AUDIT-C (Standard) Question Answer Notes Did you have a drink containing alcohol in the p ast year? No Points 0 Interpretation Negative Vital Signs Height 5ft 7in in 05/24/2025 Weight 247 lbs 05/24/2025 BMI 38.68 kg/m2 05/24/2025 Blood pressure systolic 130 mm Hg 05/24/20 25 Blood pressure diastolic 28 mm Hg 025 Procedures Procedure Date Ordered Date Performed Result Body Sit e 31221-CNXDMAW NAIL, 6 OR MORE 05/24/2025 N/A Encounters Encounter Location Date Provider Diagnosis [facility] [address] [place] [address] 05/24/2025 Yung Stone Pain in right toe(s) M79.674 ; Tinea unguium B35.1 ; Pain in left toe(s) M79.675 and Type 2 diabetes mellitus without complication E11.9 Assessments Encounter Date Diagnosis (ICD Code) Assessment Notes Treatment Notes Treatment Clinical Notes Section Notes 05/24/2025 Pain in right toe(s) (ICD-10 - M79.674) 05/24/2025 Tinea unguium (ICD-10 - B35.1) 05/24/2025 Pain in left toe(s) (ICD-10 - M79.675) 05/24/2025 Type 2 diabetes mellitus without complication (ICD-10 - E11.9) 05/24/2025 Other Plan Of Treatment Pending Test Test Name Order Date 78255-FGLTICN NAIL, 6 OR MORE 05/24/2025 Next Appt Details Follow Up: prn, Reason: Provider Name:Yung Ritter , 11/22/2025 08:45:00 AM, [address] [place], [address], Procedure Notes * Category Sub-Category Detail Notes [...] T1, T2, T4, T5, T6, T7, T9 ), was performed exclusively by the physician of record to reduce/remove overall nail length, girth, thickness, subungual debris, and necrotic tissue, by manual and/or electrical means through the use of a nail nipper and/or dremel-type organ grinder, to a more viable healthy nail plate [...] to maintain effectiveness in symptomatic relief - Progress Notes * Greyson WILLISDOB: [birth year] (60 yo M)Acc No.[id number]:05/24/2025 Progress Note Patient: Greyson MCCOY Laila Provider: Daniela Ritter DPM :1965 A ge:60 Y S ex:Male Date:05/24/2025 Address:[address] [place], [place] [id number] Pcp:Vitor Levy MD Subjective: * Chief Complaints: * A t Risk FootcarePainful Nail(s) aggravated by shoes and causing difficulty standing/walking. * HPI: A t Risk footcare: Pt States Last PCP Visit: D ate: 0 [place] [facility] [place] Right [place] replacement surgery. * ROS: G eneral/Constitutional: Nausea d enies. V omiting d enies. H nolberto Thirst d enies. L oss appetite d enies. C hills d enies. F atigue d enies.?Fever d enies. N ight Sweats d enies. U nexplained weight loss d enies. U nexplained weight gain d enies. H EENTM: Dentures d enies. D izziness d enies. G lasses/contacts a dmits. R etinopathy d enies. B lurred/double vision d enies. T MJ?denies. D ischarge/drainage d enies. I mplants d enies. S ore throat d enies. D ental implants d enies. H pinky of hearing d enies. D ifficulty chewing/swallowing/speaking d enies. N ose bleeds d enies. S ore mouth d enies. ? R espiratory: On Oxygen d enies. P neumonia/pleurisy d enies.?Bronchitis d enies. E mphysema d enies. C oughing d enies. C ough blood?denies. S hortness of breath d enies. W heezing d enies. C ardiovascular: Pacemaker d enies. M AQUATIC INSTRUCTOR d enies. W PW d enies. C HF d enies. H eart attack d enies. S eptal defect d enies. R apid beat d enies. C hest pain d enies. A trial Fib. d enies. M urmur/Palpitations d enies. G astrointestinal: Hemorrhoids d enies. S tomach/Abdominal pain d enies. D ark blood stool d enies. I rritable bowel d enies. C onstipation d enies. D iarrhea d enies. H ematology: Swelling d enies. C lots d enies. V aricose Veins d enies. B ruising d enies. B leeding problem d enies. G enitourinary: Blood urine d enies. F requent/Painfu/urination/bladder control d enies. K idney stones d enies. I nfection (UTI) d enies. N ephropathy d enies. s ex trans dis (STD) d enies. P rostate d enies. M usculoskeletal: Hammertoes d enies. B unions a dmits. B ack Pain d enies. M uscle Cramps/ Resting a dmits. M uscle cramps / walking d enies.?Generalized aches and pains a dmits. W eakness d enies. I nteg.: Pruett d enies. S cars d enies. C orns/calluses?admits. I ngrown nails a dmits. P ainful nails a dmits. O pen Sores d enies. R ashes d enies. N eurologic: Difficulty sleeping d enies. B rain disorder d enies. N umbness d enies. B alance trouble a dmits. C onfusion d enies. F ainting/blackouts d enies. T ingling d enies. T remors d enies. * Medical History: * Surgical History: u rological 05/23/2013endoscopy 05/09/2019Hernia repair 02/09/23 * Hospitalization/Major Diagno stic Procedure: D enies Past Hospitalization * Family History: M other: , diagnosed with Other malignant neoplasm of unspecified site, Diabetic - NIDDM, Unspecified heart disease. F ather: , diagnosed with Other malignant neoplasm of unspecified site, Diabetic - NIDDM, Unspecified heart disease. S iblings: diagnosed with Other malignant neoplasm of unspecified site, Unspecified essential hypertension. kidney/liver disease ?. * Social History: T obacco Use: T obacco use other than smoking A re you an other tobacco user? N o Tobacco Control (Standard) T obacco use: N onsmoker A dditional Findings: Tobacco non-user C urrent nonsmoker D rugs/Alcohol: D rugs H ave you used drugs other than those for medical reasons in the past 12 months? N o M iscellaneous: C affeine: yes, frequency: tea -1-2 cups per day. Children: no. Exercise: yes, weightlifting, cardio, water aerobics. Marital status: single. 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 D rug/Alcohol: A LYNN-C (Standard) D id you have a drink containing alcohol in the past year? N o P oints 0 I nterpretation N egative * Medications: T akingNaproxen , Notes to Pharmacist: PRNWellbutrin , Notes to Pharmacist: 150 mgAtorvastatin Calcium Rybelsus 7 MG Tablet 1 tablet at least 30 minutes before first food, beverage or other oral medicine of the day Orally Once a day Cialis Advil Dual Action busPIRone HCl 10 MG Tablet 1 tablet Orally Twice a day Clomid 50mg every other day Lexapro 5 MG Tablet 1 tablet Orally Once [...] (L85.1) metFORMIN HCl 500 MG Tablet Oral , Notes to Pharmacist: 2 X A DAYGabapentin 400 MG Capsule 1 tablet Orally Once a day Ammonium Lactate 12 % Cream 1 application Externally to affected areas of dry skin to feet except for between the toes Twice a day Taking Naproxen , Notes to Pharmacist: PRNTaking Wellbutrin , Notes to Pharmacist: 150 mgTaking Atorvastatin Calcium Taking Rybelsus 7 MG Tablet 1 tablet at least 30 minutes before first food, beverage or other oral medicine of the day Orally Once a day Taking Cialis Taking Advil Dual Action Taking busPIRone HCl 10 MG Tablet 1 tablet Orally Twice a day Taking Clomid 50mg every other day Taking Lexapro 5 MG Tablet 1 tablet Orally Once [...] Taking metFORMIN HCl 500 MG Tablet Oral , Notes to Pharmacist: 2 X A DAYTaking Gabapentin 400 MG Capsule 1 tablet Orally Once a day Taking Ammonium Lactate 12 % Cream 1 application Externally to affected areas of dry skin to feet except for between the toes Twice a day Not-Taking/PRNViagra 20mg 1 tablet as needed Xiidra 5 % Solution 1 drop into affected eye Ophthalmic Twice a day Melatonin clonazePAM 0.25 MG Tablet Disintegrating 1 tablet Orally Once a day Econazole Nitrate twice a day Magnesium cloNIDine HCl 0.1 MG Tablet 1 tablet at bedtime Orally Tolnaftate 1 % Aerosol Powder Externally prn Medication List reviewed and reconciled with the patientNot- Taking/PRN Viagra 20mg 1 tablet as needed Not-Taking/PRN Xiidra 5 % Solution 1 drop into affected eye Ophthalmic Twice a day Not-Taking/PRN Melatonin Not-Taking/PRN clonazePAM 0.25 MG Tablet Disintegrating 1 tablet Orally Once a day Not- Taking/PRN Econazole Nitrate twice a day Not-Taking/PRN Magnesium Not-Taking/PRN cloNIDine HCl 0.1 MG Tablet 1 tablet at bedtime Orally Not-Taking/PRN Tolnaftate 1 % Aerosol Powder Externally prn Medication List reviewed and reconciled with the patient * Allergies: S hellfish-derived ProductsCodeineTrazodone: rapid heart rateyes[Allergies Verified] Objective: * Vitals: H t:5ft 7in, Wt:247, BMI:38.68, Shoe size:9-10, BP:130/28mm Hg, BS:58, Ht-cm: 170.18 cm, Wt-k.04 kg. * P ast Orders: L ab:HEMOGLOBIN A1C (GLYCOHEMOGLOBIN) (Order Date - 09/04/2024) (Collection Date & Time - 11/23/2024 08:42 AM) Value Reference Range HEMOGLOBIN A1C % (HH) 5.6 * Examination: O phthalmology Referral: DIABETES EYE EXAM P rocedure Performed: Ellie Puckett ate of Exam Performed 1 06/08/2024 D iabetic Retinopathy Screening: Y irma R etinal Screening Performed: Y irma F indings of Diabetic Eye Exam: n o retinopathy N ails: NAILS are: E longated, overgrown, dystrophic, lytic, greater than 3mm thick, discolored and friable with crumbly malodorous subungual debris, with pain on palpation, TA, T1, T2, T4, T5, T6, T7, T9, all other nails not described with characteristics as possessing mycosis are elongated, overgrown, and dystrophic. Assessment: * Assessment: 1. P ain in right toe(s) - M79.674 2 . T inea unguium - B35.1 (Primary)? 3. P ain in left toe(s) - M79.675 4 . T ype 2 diabetes mellitus without complication - E11.9 Plan: * Treatment: * Procedures: D ebride Nail 6-10: Nail debridement D ue to the clinical pathology outlined in the exam findings, performance of this nail treatment is medically necessary as its management by an unskilled/untrained nonprofessional would put this patients foot and overall health at risk. Therefore, debridement to affected nail(s), as described in exam ( TA, T1, T2, T4, T5, T6, T7, T9 ), was performed exclusively by the physician of record to reduce/remove overall nail length, girth, thickness, subungual debris, and necrotic tissue, by manual and/or electrical means through the use of a nail nipper and/or dremel-type organ grinder, to a more viable healthy nail plate [...] to maintain effectiveness in symptomatic relief - 00998. * Procedure Codes: 1 1721 DEBRIDE NAIL, 6 OR MORE * Follow Up: p rn * Images: * Sign off status: Completed true * Provider: Daniela Ritter DPM Date: 07/25/2024 Generated for Pierre Galvan/Jeremiah on: 07/25/2024 12:36 PM EST History and Physical Notes * HPI (History of Present Illness) Category Sub-Category Detail Notes Category Not es At Risk footcare Pt States Last PCP Visit: Date:: 02/21/20 25 Misc States considering p artial Right knee replacement surgery Examination Category Sub-Category Detail Notes Category Not es Ophthalmology Referral DIABETES EYE EXAM Procedu re Performed:: Yes Date of Exam Performed: 04/08/2025 Diabetic Retinopathy Screening:: Yes Retinal Screening Performed:: Yes Findings of Diabetic Eye Exam:: no retin opathy Nails NAILS are: Elongated, overg rown, dystrophic, lytic, greater than 3mm thick, discolored and friable with crumbly malodorous subungual debris, with pain on palpation, TA, T1, T2, T4, T5, T6, T7, T9, all other nails not described with characteristics as possessing mycosis are elongated, overgrown, and dystrophic
--- NOTE | 2025-05-24 10:50 | MHC.OFFVIS ---
Intake Visit Reasons: 6M Labs/PVR(set) Intake Note: Reason for Visit: Labs follow up Urology Meds: Tadalafil, Blood Thinners: None Labs: PSA- 2.0 Testosterone: 1174 Estradiol- 81.2 (04/20/2025) Imaging: None Last PVR: None Early Childhood Services Coordinator Required: No Accompanied by: Self / Same As Patient Allergies codeine Allergy (Unknown, Verified 05/24/25 10:57) unknown shellfish derived Allergy (Verified 05/24/25 10:57) Anaphylaxis trazodone Adverse Reaction (Verified 05/24/25 10:57) Palpitations HPI Comments Details: Greyson WILLIS is a very pleasant male. He is a patient of Dr Levy. He is seen for the following urologic conditions. - hypogonadism - lower urinary tract symptoms - erectile dysfunction in setting of diabetes Six-month office visit Had been on clomiphene 1/2 tab every 3rd day Does have high E2 Try stopping clomiphene follow-up 4 months with lab work If required can restart alternate SARM 11/27 T 987, 05/29 T 1000 E 50, 11/28 T 850, 05/30 1174 E 81.2 Daily tadalafil for erectile dysfunction - has helped On semaglutide and metformin - has dropped weight. 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 Associate conditions include obstructive sleep apnea No CAD No dyslipidemia Yes hypertension Yes obesity Yes stress - financial, family, employment No heavy alcohol or illicit drug use No Laboratory results 05/24 T 274 06/25 T 273 FSH 7.6 LH 7.0 09/23 T 715 FSH 12.5. - 03/25 T 940 PSA 0.9 FSH 12, 03/26 T 405, LH 7 - 09/25 T 660 P 1.0 FSH 11.8, 03/27 T 564 LH 8.9 Est , 09/26 T 591 E 17 Therapeutic plan baseline evaluation of testicular function. Doing well. Review in 6 months Lower Urinary Tract Symptoms: Current visit is for further evaluation of, lower urinary tract symptoms, predominate obstructive symptoms. Current treatment includes observation. Prostate Symptom Score 04/23 , Mild (0-8), Bother 2. Symptoms include 04/22 , incomplete emptying, intermittency, weak stream, and are stable 04/23 , weak stream, nocturia (>2). Prior Prostate Score mild. PSA 04/22 1.1 04/23 1.2 04/24 1.1 Prostate volume < 30 gm. [facility] Medical History Male circumcision Hypogonadism in male Low libido History of urinary hesitancy Weak urinary stream Benign prostatic hyperplasia with lower urinary tract symptoms Nocturia Review of Systems Const Denies chills and Denies fever(s) Card Reports no additional complaints and Denies syncope Resp Denies cough GI Denies abdominal pain and Denies heartburn Reports as per HPI and Denies change in libido Neuro Denies syncope Psych Denies change in libido Endo Denies change in libido Physical Exam Const General: cooperative, healthy appearing, comfortable and no acute distress Orientation/consciousness: patient oriented x3 HEENT Face and sinus: Yes normal facial exam Mouth: moist mucous membranes Neck Neck: Yes normal visual inspection, Yes full ROM and Yes trachea midline Chest Chest palpation & inspection: normal inspection of the chest Resp Effort & Inspection: normal respiratory effort, able to speak in complete sentences and no respiratory distress GI Inspection: Yes normal to inspection Back/Spine/Pelvis Cervical Spine: normal cervical lordosis Thoracic/Lumbar Spine: thoracic and lumbar spine normal to inspection Skin General skin exam: no rashes or lesions noted Neuro General: patient oriented x3, gait normal, tone normal and moves all extremities Extrem General: Yes normal to inspection and Yes capillary refill normal Assessment & Plan Assessment & Plan (1) Erectile dysfunction associated with type 2 diabetes mellitus: Code(s): E11.69 - Type 2 diabetes mellitus with other specified complication; N52.1 - Erectile dysfunction due to diseases classified elsewhere Category: Medical (2) Hypogonadism in male: Code(s): E29.1 - Testicular hypofunction Category: Medical Plan Three-month follow-up lab Orders: Orders Lutenizing Hormone 3 Months E29.1 - Testicular hypofunction Estrad Free (Tot Ultra + Free) 3 Months E29.1 - Testicular hypofunction Testosterone, Total 3 Months E29.1 - Testicular hypofunction Patient Instructions: This note is constructed using voice recognition software. While every effort has been made to ensure accuracy pin attacher errors may have been included. Imaging studies, laboratory and physical exam results were discussed and reviewed in detail. No major barriers to patient understanding were identified. An opportunity to ask questions regarding the treatment plan was provided. All questions were answered. The patient expressed understanding and agreement with the above treatment plan. The patient is aware they should contact our office by phone for worsening of their current condition or the appearance of new urologic symptoms. Compliance is encouraged with any medications and followup testing that is ordered. It is a privilege to participate in the urologic care of your patient. If you have any questions or concerns regarding treatment for the above conditions, or other urologic issues, please do not hesitate to contact me. The office telephone contact is [phone]. Sincerely, Dr Bhargav Tobar MD, [facility] - Urology Compassionate Specialist Care for the Genitourinary System Coding Level of Care Code Est Pt Level 3 (77881) Add On Problem Visit Only Diagnoses Erectile dysfunction associated with type 2 diabetes mellitus E11.69; N52.1 Hypogonadism in male E29.1
--- OUTSIDE RECORDS SUMMARY | 2025-05-24 12:35 | XMS_ITS | Clinical Summary ---
Author Organization [address] [place] [address] [place] [phone] Phone Care Team Providers Care Web Merchant Name Role Phone Vitor Levy MD Primary Care Provider [phone] Allergies Active Allergy Reactions Criticality Noted Date Comments Codeine 11/17/2023 Other 11/17/2023 scallops Trazodone 11/17/2023 Rapid heart rate Medications atorvastatin (LIPITOR) 10 mg tablet Take 1 tablet (10 mg total) by mouth 1 (one) time each day. Active gabapentin (NEURONTIN) 400 mg capsule Take 1 Capsule by mouth at bedtime. Active lisinopriL (PRINIVIL,ZESTRI L) 10 mg tablet Take 1 tablet (10 mg total) by mouth 1 (one) time each day. Active CLOMIPHENE CITRATE ORAL every 3 (three) days. Active tadalafiL (CIALIS) 5 mg tablet Take 1 tablet (5 mg total) by mouth 1 (one) time each day. Active resmetirom (Rezdiffra) 100 mg tablet Take by mouth 1 (one) time each day. Active busPIRone (BUSPAR) 7.5 mg tablet Take 1 tablet (7.5 mg total) by mouth 2 (two) times a day. Active aspirin 81 mg chewable tablet Chew 1 tablet (81 mg total) 1 (one) time each day. Active tadalafiL (CIALIS) 20 mg tablet Take 1 tablet (20 mg total) by mouth 1 (one) time each day if needed for erectile dysfunction. Active glucagon (Baqsimi) 3 mg/actuation nasal spray Administer 3 mg into one nostril. Active omega 0-fys-vbe-fish oil (Fish OiL) 1,200 (144-216) mg capsule Take by mouth. Acti ve Lactobacillus acidophilus (PROBIOTIC ORAL) Take by mouth 1 (one) time each day. Active mv-min/folic/K1/ lycopen/lutein (CENTRUM SILVER MEN ORAL) Take by mouth 1 (one) time each day. Active melatonin 10 mg capsule Take by mouth 2 (two) times a day. Active vitamin E, dl,tocopheryl acet, (vitamin E, dl, acetate,) 180 mg (400 unit) capsule Take 1 capsule (400 Units total) by mouth 1 (one) time each day. Active metFORMIN (GLUCOPHAGE) 500 mg tablet Take 1 tablet (500 mg total) by mouth 2 (two) times a day with meals. Active semaglutide (Rybelsus) 7 mg tablet Take 1 tablet (7 mg total) by mouth 1 (one) time each day. Take with 4 ounces (1/2 cup) of water on empty stomach, 30 min prior to other medication or food. Active buPROPion XL (WELLBUTRIN XL) 150 mg 24 hr tablet Take 1 tablet (150 mg total) by mouth 1 (one) time each day. Do not crush, chew, or split. Active Active Problems Problem Noted Date Diagnosed Date Hypertension 06/15/2024 Assessment & Plan (06/15/2024 10:34 AM EST): Blood pressure is well-controlled on lisinopril alone. He brings with him lab results from a basic metabolic panel completed on 06/14/2024 showing normal renal function and electrolytes except for chloride that is elevated at 107. Continue lisinopril. Class 2 severe obesity due t o excess calories with serious comorbidity and body mass index (BMI) of 38.0 to 38.9 in adult 06/15/2024 Assessment & Plan (06/15/2024 10:34 AM EST): Patient is obese; he previously has been making great strides with weight loss via improved diet and activity which has subsequently been hindered over the last several months as outlined above. Approaches towards weight loss are discussed, including burning more calories than one takes in by portion control and regular exercise with an emphasis on duration rather than intensity. Continued efforts towards weight loss were encouraged. Type 2 diabetes mellitus wit h hypoglycemia without coma, without long-term current use of insulin 06/15/2024 Fatty liver 11/17/2023 Mixed hyperlipidemia 11/17/2023 Assessment & Plan (06/15/2024 10:34 AM EST): The patient's most recent lipid panel was completed on 06/14/2024 revealing a total cholesterol of 90, triglycerides of 56, HDL low at 37, and LDL 40. Lifestyle changes with improved diet and activity level were reviewed to increase HDL which provides a cardioprotective benefit once above 60. LDL goal for this patient was a history of coronary artery disease as well as diabetes is less than 55. Of note, the patient is currently on Rezdiffra as prescribed by his information technology audit manager; this medication works to decrease triglycerides and the liver and can subsequently raise atorvastatin levels. While on this medication, Dr. Johnson previously recommended the patient's atorvastatin not be more than 40 mg daily. He is doing well on 10 mg daily which we will continue at this time. I have reviewed with the patient the importance of a heart healthy lifestyle which includes eating a low-fat low-salt diet, getting regular exercise, maintaining a healthy weight, not smoking, and following up with routine medical care. Elevated coronary artery calcium score Assessment & Plan (06/15/2024 10:34 AM EST): KERR (dyspnea on exertion) 11/17/2023 Coronary artery disease due to calcified coronar y lesion 11/17/2023 Overview (04/27/2024): With extremely Elevated coronary calcium Assessment & Plan (06/15/2024 10:34 AM EST): The patient has a history of an extremely elevated calcium score in 10/06/2023 at 1829 distributed throughout 3 coronary vessels, the left main score was 0. He has a history of abnormal EKG showing possible inferior infarct. He subsequently underwent stress echocardiogram on 12/01/2023 which was normal, showing no baseline wall motion abnormalities with vigorous augmentation of contractility in all wall segments with exercise. He continues to exercise though not as frequently as in the past as discussed above; he plans to increase his activity level further by exercising in the morning hours starting in July. He is not currently offering any exertional symptoms to cause concern for underlying ischemia within his current functional capacity; as he increases his activity level he will notify our office should this change, seeking emergent medical attention as appropriate. We will not make any changes to his current cardioprotective medical therapies; continue atorvastatin and daily ASA. The patient was advised to seek emergent medical attention by calling 911 if they were to develop severe dyspnea, chest pain that did not resolve with rest, or if they were to faint. Encounters Date Type Department Care Team Description 05/21/2025 10:50 AM EST Office Visit [facility] [address] [place] [address] Rosalee Johnson MD Coronary artery disease due to calcified coronary lesion (Primary Dx) from Last 3 Months Surgical History Surgery Date Site/Laterality Comments OTHER SURGICAL HISTORY 2011 PROCEDURE: HISTORY OTHER; COMMENT: CIRCUMCISION OTHER SURGICAL HISTORY 2015 PROCEDURE: HISTORY OTHER; COMMENT: COLONOSCOPY Medical History Medical History Date Comments Arthritis DX:Arthritis Hepatic steatosis DX:Hepatic rosa atosis Insomnia DX:Insomnia Hypogonadism male DX:Hypogonadis m male IBS (irritable bowel syndrome) D X:IBS (irritable bowel syndrome); COMMENT: with constipation and diarrhea Mild major depression (CMS/HCC V24) DX:Mild major depression (HCC) UMER (obstructive sleep apnea) DX :UMER (obstructive sleep apnea) Prediabetes DX:Prediabetes Severe obesity (BMI 35.0-39. 9) with comorbidity (CMS/HCC V24, CMS/HCC V28) DX:Severe obesi ty (BMI 35.0-39.9) with comorbidity (HCC) Family History Medical History Relation Name Comments Other: HLD Brother Coronary artery disease Father Other: DIABETES MELLITUS TYPE II Father Relation Name Status Comments Brother Father Social History Tobacco Use Types Packs/Day Years Used Date Smoking Tobacco: Former Cigarettes Smokeless Tobacco: Never Tobacco Cessation:Counseling Given: Not Answered Alcohol Use Standard Drinks/Week Comments Not Currently 0 (1 standard drink = 0.6 oz pur e alcohol) quit 2014 Sex and Gender Information Value Date Recorded Sex Assigned at Not on file Legal Sex Male 11:38 AM EDT Gender Identity Not on file Sexual Orientation Not on file Last Filed Vital Signs Vital Sign Reading [...] Mass Index 40.25 05/21/2025 10:47 AM EST Plan of Treatment Health Maintenance Due Date Last Done Comments Colorectal Cancer Screening: Colonoscopy 1966 Diabetes: Annual Foot Exam 1976 Diabetes: Annual Retina Eye Exam 1976 Hepatitis A Vaccines (1 of 2 - Risk 2-dose series) 1985 Diabetes: Annual GFR (Glomerular Filtration Rate) 08/25/2019 08/24/2018, 11/28/2017, 10/10/2017 Cholesterol Screening (Lipid Panel) 03/14/2024 08/24/2018 HIV Screening 03/14/2024 Hypertension/CHF/CAD Annual BMP Blood Test 03/14/2024 08/24/2018, 11/28/2017, 10/10/2017 Social Influencers of Health Screening 03/14/2024 Depression Screening 06/06/2024 Diabetes: Annual Urine Albumin-Creatinine Ratio (uACR) 06/15/2024 Diabetes: Blood Sugar Control Test (HGBA1C) 06/15/2024 DTaP,Tdap,and Td Vaccines (3 - Td or Tdap) 05/05/2031 05/05/2021, 12/01/2011 Hepatitis C Screening Completed 10/10/2017 Zoster Vaccines Completed 08/07/2019, 05/11/2019 Pneumococcal Vaccine: 50+ Years Completed 03/17/2023 MMR Vaccines Aged Out 12/06/2024 No longer eligi ble based on patient's age to complete this topic COVID-19 Vaccine Completed 02/09/2025, 11/2023, 03/17/2023, Additional history exists Influenza Vaccine Completed 02/09/2025, , 02/22/2023, Additional history exists Hepatitis B Vaccines Completed 03/13/2025, 02/10/20 25 RSV Immunization Adult Patients Completed 05/04/2025 HIB Vaccines Aged Out No longer eligi ble based on patient's age to complete this topic HPV Vaccines Aged Out No longer eligi ble based on patient's age to complete this topic IPV Vaccines Aged Out No longer eligi ble based on patient's age to complete this topic Meningococcal ACWY Vaccine Aged Out N o longer eligible based on patient's age to complete this topic Meningococcal B Vaccine Aged Out No l onger eligible based on patient's age to complete this topic RSV Immunization Patients Under 20 months Aged Out No longer eligible based on patient's age to complete this topic Varicella Vaccines Aged Out No longer eligible based on patient's age to complete this topic Procedures Procedure Name Priority Date/Time Associated Diagnosis Comments ECG 12-LEAD Routine 05/21/2025 10:55 AM EST Coronary artery disease due to calcified coronary lesion from Last 3 Months Results * ECG 12 lead (05/21/2025 10:55 AM EST) Ventricular Rate ECG 83 BPM GEMUSE Atrial Rate 83 BPM GEMUSE P-R Interval 158 ms GEMUSE QRS Duration 86 ms GEMUSE Q-T Interval 358 ms GEMUSE QTc 420 ms GEMUSE P Wave Maynard 36 degrees GEMUSE R [place] 3 degrees GEMUSE T [place]nard 19 degrees GEMUSE ECG Interpretation Normal sinus rhythm Normal ECG No previous ECGs available Confirmed by Pam JOHNSON, ROSALEE ([id number]) on 05/21/2025 11:29:09 AM GEMUSE 05/21/2025 10:5 5 AM EST 05/21/2025 11:29 AM EST us Rosalee Johnson MD ECG ORDERABLES Final Result GEMUSE from Last 3 Months Insurance Care Teams Web Merchant Relationship Specialty Start Date End Date Vitor Levy MD [facility] [address] [facility] [place] [address] PCP - General 11/10/23
--- OUTSIDE RECORDS SUMMARY | 2025-05-24 12:36 | XMS_ITS | Patient Health Record ---
Author Organization [facility] Address [address] [place] [address] Care Team Providers Care Manager Requirements Name Role Phone Vitor Levy MD Primary Care Provider Yung Gutierres Unavailable [phone] Allergies Allergen (clinical drug ingredient) Drug/Non Drug Allergy documented on EMR Reaction Allergy Type Onset Date Status codeine Codeine Unknown Drug Allergy Active Shellfish (FN) Shellfish-derived Products Unknown Drug Allergy Active trazodone Trazodone rapid heart rate Drug Allergy Active Results Component Value Reference Range Notes HEMOGLOBIN A1C (GLYCOHEMOGLO BIN) Reviewed date:05/25/2024 10:35:15 AM Interpretation: Performing Lab: Notes/Report: TOTAL HEMOGLOBIN (HGBA1C) 6.0 HEMOGLOBIN A1C (GLYCOHEMOGLO BIN) Reviewed date:11/23/2024 08:43:00 AM Interpretation: Performing Lab: Notes/Report: HEMOGLOBIN A1C % (HH) 5.6 Reason For Referral No Information Medications Medication SIG (Take, Route, Frequency, Duration) Notes Start Date End Date Status Atorvastatin Calcium Active Wellbutrin 150 mg Active Naproxen PRN Active Melatonin Not-Taking metFORMIN HCl 500 MG Oral; Duration: 90 2 X A DAY Active Extra Depth Orthopedic Shoes (1 Pair) with Customized Heat Molded Multidensity Innersoles (3 Pair) as directed Dx: NIDDM (E11.9), Hammertoe Foot Deformity (M20.41,M20.42), Preulcerative Skin Lesion(s) (L85.1) 07/26/2023 Active Vitamin E Active Rybelsus 7 MG as directed Orally Active Xiidra 5 % 1 drop into affected eye Ophthalmic Twice a day Not-Taking Viagra 20mg 1 tablet as needed Not-Taking Ammonium Lactate 12 % 1 application Externally to affected areas of dry skin to feet except for between the toes Twice a day; Duration: 30 days Active Gabapentin 400 MG 1 tablet Orally Once a day Active metFORMIN HCl 1000 MG 1 tablet with a me al Orally Once a day Active Multi Vitamin Mens A ctive Probiotic Active busPIRone HCl 10 MG 1 tablet Orally Twic e a day Active Advil Dual Action Ac tive Tolnaftate 1 % Externally prn Not-Taking Cialis Active cloNIDine HCl 0.1 MG 1 tablet at bedtime Orally Not-Taking Rybelsus 7 MG 1 tablet at least 30 minutes before first food, beverage or other oral medicine of the day Orally Once a day; Duration: 30 day(s) Active Magnesium Not-Taking Fish Oil 1200mg Once a day Act renata Lisinopril 5 MG 1 tablet Orally Once a day Active Lexapro 5 MG 1 tablet Orally Once a day Active Clomid 50mg every other day Ac tive Econazole Nitrate twice a day Not-Taking clonazePAM 0.25 MG 1 tablet Orally Once a day Not-Taking Immunizations Vaccine Route Administration Date Status Comme nts Influenza Unknown 03/05/2022 Administered Influenza Unknown 02/04/2023 Administered Influenza Unknown 03/06/2024 Administered Influenza Unknown 03/08/2025 Administered COVID-19 Pfizer BioNTech Vaccine Unknown 03/05/2022 Administered 09/19/20,10/10/20 04/12/21 Social History Tobacco Use: Social History Observation [...] ast year? No Points 0 Interpretation Negative Problems Problem Type SNOMED Code ICD Code Onset Dates Problem Status W/U Status Risk Notes Problem Acquired hammer toe of right foot (464803751784682 5) Other hammer toe(s) (acquired), right foot (M20.41) Active confirmed Problem Acquired hammer toe of left foot (436269765993122 3) Other hammer toe(s) (acquired), left foot (M20.42) Active confirmed Problem Type II diabetes mellitus without complication (962618739) Type 2 diabetes mellitus without complication (E11.9) Active confirmed Vital Signs Blood pressure diastolic 28 mm Hg 05/24/2025 Height 5ft 7in in 05/24/2025 Blood pressure systolic 130 mm Hg 05/24/2025 Weight 247 lbs 05/24/2025 BMI 38.68 kg/m2 05/24/2025 Procedures Procedure Date Ordered Date Performed Result Body Sit e 38562-KWTCMOY NAIL, 6 OR MORE 05/25/2024 N/A 55665-VOLWPSZ NAIL, 6 OR MORE 11/23/2024 N/A 22225-SDNEOPG NAIL, 6 OR MORE 05/24/2025 N/A Encounters Encounter Location Date Provider Diagnosis [address] [address] 05/25/2024 Yung Stone Tinea unguium B35.1 ; Pain in right toe(s) M79.674 ; Pain in left toe(s) M79.675 and Xerosis of skin L85.[address] [address] 11/23/2024 Yung Stone Pain in right toe(s) M79.674 ; Tinea unguium B35.1 ; Pain in left toe(s) M79.675 ; Type 2 diabetes mellitus without complication E11.9 ; Other hammer toe(s) (acquired), right foot M20.41 and Other hammer toe(s) (acquired), left foot M20.[address] [address] 05/24/2025 Yung Stone Pain in right toe(s) M79.674 ; Tinea unguium B35.1 ; Pain in left toe(s) M79.675 and Type 2 diabetes mellitus without complication E11.9 Assessments Encounter Date Diagnosis (ICD Code) Assessment Notes Treatment Notes Treatment Clinical Notes Section Notes 05/25/2024 Tinea unguium (ICD-10 - B35.1) 05/25/2024 Pain in right toe(s) (ICD-10 - M79.674) 11/23/2024 Pain in right toe(s) (ICD-10 - M79.674) 05/24/2025 Pain in right toe(s) (ICD-10 - M79.674) 05/24/2025 Tinea unguium (ICD-10 - B35.1) 05/24/2025 Pain in left toe(s) (ICD-10 - M79.675) 11/23/2024 Tinea unguium (ICD-10 - B35.1) 11/23/2024 Pain in left toe(s) (ICD-10 - M79.675) 05/25/2024 Pain in left toe(s) (ICD-10 - M79.675) 05/25/2024 Xerosis of skin (ICD-10 - L85.3) 11/23/2024 Type 2 diabetes mellitus without complication (ICD-10 - E11.9) 05/24/2025 Type 2 diabetes mellitus without complication (ICD-10 - E11.9) 11/23/2024 Other hammer toe(s) (acquired), right foot (ICD-10 - M20.41) Patient Educated with: DIABETIC FOOT CARE INSTRUCTIONS.p df (DIABETIC FOOT CARE INSTRUCTIONS.p df) 11/23/2024 Other hammer toe(s) (acquired), left foot (ICD-10 - M20.42) 05/24/2025 Other Plan Of Treatment Pending Test Test Name Order Date 39376-AYLSBPK NAIL, 6 OR MORE 04/09/2016 75319-XVASGFT NAIL, 6 OR MORE 01/09/2016 27951-XGYTDOO NAIL, 6 OR MORE 08/03/2022 30658-SXOXHGS NAIL, 6 OR MORE 11/26/2022 06792-YGANURK NAIL, 6 OR MORE 04/01/2023 54152-GIXSJEQ NAIL, 6 OR MORE 07/26/2023 03338-WREOLNM NAIL, 6 OR MORE 11/22/2023 35965-BZINWQG NAIL, 6 OR MORE 05/25/2024 04958-WJVOGMP NAIL, 6 OR MORE 11/23/2024 44411-ISCQCFS NAIL, 6 OR MORE 05/24/2025 29819-Ilunsjoa Plate 07/14/2018 17013-Caceigyd Plate 10/13/2018 68387-Qblhelwp Plate 03/06/2019 19374-Kbotdjvo Plate 06/19/2019 00698-Xlpwrvhj Plate 11/30/2019 16487-Mdnsbfuv Plate 01/09/2016 57073-Jjigkuvr Plate 10/08/2016 23359-Gurmaeap Plate 04/09/2016 12939-Yavztuxq Plate 07/09/2016 87260-Mnlwixin Plate 01/14/2017 65227-Pwoprwuz Plate 10/07/2017 55919-Jlpctftl Plate 01/06/2018 49379-Xnuvjnuh Plate 04/07/2018 09820-Xmaxqakd Plate 11/14/2020 21888-Vdnivvwy Plate Each Additional 01/2019 60355-Hylmyomi Plate Each Additional 07/2017 01768-Mqnakkqh Plate Each Additional 08/2017 38008-Peljzpww Plate Each Additional 09/2017 43208-Khzhnjrh Plate Each Additional 10/2016 53922-Ieunvudx Plate Each Additional 04/2017 61631-Ofyuwiql Plate Each Additional 03/2019 28114-MTG 11/03/2018 50027-TXM 12/14/2019 62082- Debride <25 sq cm 12/04/2018 86149- Debride <25 sq cm 01/22/2020 71336-VRFNDNM SKIN/TISSUE 12/31/2019 80585-WWWYJKH SKIN/TISSUE 01/08/2020 23177-FANGMTU SKIN/TISSUE 11/17/2018 Next Appt Details Provider Name:Yung Ritter , 11/22/2025 08:45:00 AM, [address] [place], [address], Insurance Providers Payer Name Payer Address Payer Phone Subscriber Number Group Number Insured Name Patient Relationship to Insured Coverage Start Date Coverage End Date [facility] [address] [place] [address] [id number] Greyson Hernández Self - patient is the insured Medical (General) History Medical History History ICD Code Anxiety Depression Psychiatric disorder Chicken pox fused lambar vertabrae metabolic syndrome - LIVER DISEASE Type II diabetes Umbilical hernia torn meniscus Surgical History Surgery Date(Month/Year) urological 05/23/2013 endoscopy 05/09/2019 Hernia repair 02/09/23
--- OUTSIDE RECORDS SUMMARY | 2025-05-24 12:36 | XMS_ITS | Encounter Summary ---
Author Organization [facility] Address [address] [place] [phone] Phone Care Team Providers Care Frame Table Operator Name Role Phone Glenroy Abel MD Primary Care Provider [phone] Vitor eLvy MD Primary Care Provider + Encounter Details Date Type Department Care Team (Late Contact Info) Description 05/04/2021 Procedure Pass [facility] Endoscopy Admitting Dept Virtual Department [address] [place] [phone] Social History Tobacco Use Types Packs/Day Years Used Date Smoking Tobacco: Former Cigarettes Smokeless Tobacco: Never Comments:smoked 1989 for 3-6 months Alcohol Use Standard Drinks/Week Comments Not Currently 0 (1 standard drink = 0.6 oz pur e alcohol) none since 2014 Sex and Gender Information Value Date Recorded Sex Assigned at Male 05/03/2021 7:44 PM EST Legal Sex Male 9:39 PM EDT Gender Identity Male 05/03/2021 7:44 PM EST Sexual Orientation Choose not to disclose 2020 7:44 PM EST documented as of this encounter Plan of Treatment Upcoming Encounters Date Type Department Care Team (Late Contact Info) Description 09/19/2025 3:00 PM EDT Office Visit [facility] [address] [place] [phone] Kyle Enamorado MD [address] [place] [address] Orthopedics & Sports Medicine, [place] [address] 04/07/2026 Hospital Encounter [facility] Admitting Dept Virtual Department [address] [place] [address] Teto Noble MD [address] [place] [phone] [email or web address] 04/07/2026 Procedure Pass [facility] Endoscopy Admitting Dept Virtual Department [address] [place] [address] Scheduled Procedures Name Priority Associated Diagnoses Date/Ti me COLONOSCOPY History of adenomatous polyp of colon documented as of this encounter Visit Diagnoses Not on filedocumented in this encounter Care Teams Frame Table Operator Relationship Specialty Start Date End Date Glenroy Abel MD PCP - General Internal Medicine 04/26/19 08/02/22 Vitor Levy MD [address] [place] [phone] PCP - General Family Medicine 08/03/22 documented as of this encounter Additional Source Comments The information contained in this document represents components of the legal health record. It is not the complete legal health record.[facility]
--- OUTSIDE RECORDS SUMMARY | 2025-05-24 12:36 | XMS_ITS | Encounter Summary ---
Author Organization [facility] Address [address] [place] [address] Phone Care Team Providers Care Extension Service Agent Name Role Phone Vitor Levy MD Primary Care Provider + Encounter Details Date Type Department Care Team (Latest Contact Info) Description 08/30/2024 Transcribe Orders Virtual Department 30 [place] [address] Teto Noble MD [address] [place] [phone] [email or web address] GARCÍA (nonalcoholic steatohepatitis) (Primary Dx) Social History Tobacco Use Types Packs/Day Years Used Date Smoking Tobacco: Former Cigarettes Passive Smoke Exposure: Past Smokeless Tobacco: Never Comments:smoked 1989 for 3-6 months Alcohol Use Standard Drinks/Week Comments Not Currently 0 (1 standard drink = 0.6 oz pur e alcohol) none since 2014 Education Answer Date Recorded Are you interested in more education? Not on ayde e 10/01/2022 Are you concerned about learning? Not on file 10/01/2022 No 10/01/2022 No 10/01/2022 Digital Access Answer Date Recorded No 11/01/2022 No 11/01/2022 Reliable internet access at home? Not on file 11/01/2022 Device with a working camera? Not on file Sex and Gender Information Value Date Recorded Sex Assigned at Male 05/03/2021 7:44 PM EST Legal Sex Male 9:39 PM EDT Gender Identity Male 05/03/2021 7:44 PM EST Sexual Orientation Choose not to disclose 2020 7:44 PM EST documented as of this encounter Plan of Treatment Upcoming Encounters Date Type Department Care Team (Late st Contact Info) Description 09/19/2025 3:00 PM EDT Office Visit [facility] [address] [place] [address] Kyle Enamorado MD [address] [place] [address] Orthopedics & Sports Medicine, [facility] [place] [address] 04/07/2026 Hospital Encounter [facility] Endoscopy Admitting Dept Virtual Department [address] [place] [address] Teto Noble MD [address] [place] [address] 04/07/2026 Procedure Pass [facility] Endoscopy Admitting Dept Virtual Department [address] [place] [address] Scheduled Procedures Name Priority Associated Diagnoses Date/Ti me COLONOSCOPY History of adenomatous polyp of colon documented as of this encounter Results * US LIVER WITH ELASTOGRAPHY (09/24/2024 8:30 AM EDT) Anatomical Region Laterality Modality Abdomen Ultrasound 09/24/2024 1:04 PM EDT Impressions 09/24/2024 1:40 PM EDT Echogenic liver suggestive of hepatocellular disease. This most commonly represents fatty infiltration. The median shear wave speed is 1.1 m/s. This is decreased from 1.8 m/s on previous exam. This is less than or equal to 1.3 m/s, which corresponds with a high probability of being normal. [employer] [facility]SENS[facility]: In the setting of elevated liver function tests, nonfasting, vascular congestion, etc., the stage of liver fibrosis may be overestimated. In some patients with NAFLD, the cut-off values for compensated advanced chronic liver disease may be lower. In causes other than viral hepatitis and NAFLD, the cut-off values are not well established. Electronically Signed by: Kelly ac 09/24/2024 1:40 PM Narrative 09/24/2024 1:40 PM EDT US LIVER WITH ELASTOGRAPHY Referring clinician's provided indication for this examination in Epic: Outside Radiology Order; GARCÍA TECHNIQUE: Focused ultrasound evaluation of the liver with elastography. Volumetric sweeps were obtained and reviewed. COMPARISON: Previous exams, most recent October 2023 FINDINGS: LIVER: Liver echotexture is increased. Liver appears normal in size and contour. No focal lesions. ELASTOGRAPHY: Liver stiffness measurements were obtained on a ReadWorkssung machine in the right lobe of the liver.. 10 valid measurements were obtained. Median shear wave speed is: 1.1 m/s. This is decreased from 1.8 m/s on previous exam. IQR to median ratio: 9% which is less than 15% suggestive of adequate measurement. Gallbladder: No gallstones or gallbladder wall thickening. Daly's Sign: Not reported. Biliary: No intrahepatic biliary ductal dilatation. The common bile duct measures 4 mm. Right kidney measures 12.2 cm in length. No ascites. Procedure Note Kelly Cohn MD - 09/24/2024 US LIVER WITH ELASTOGRAPHY Referring clinician's provided indication for this examination in Epic:Outside Radiology Order; GARCÍA TECHNIQUE: Focused ultrasound evaluation of the liver with elastography. Volumetricsweeps were obtained and reviewed. COMPARISON: Previous exams, most recent October 2023 FINDINGS: LIVER: Liver echotexture is increased. Liver appears normal in size andcontour. No focal lesions. ELASTOGRAPHY: Liver stiffness measurements were obtained on a ReadWorkssungmachine in the right lobe of the liver.. 10 valid measurements wereobtained. Median shear wave speed is: 1.1 m/s. This is decreased from 1.8m/s on previous exam. IQR to median ratio: 9% which is less than 15%suggestive of adequate measurement. Gallbladder: No gallstones or gallbladder wall thickening. Daly's Sign: Not reported. Biliary: No intrahepatic biliary ductal dilatation. The common bile duct measures 4 mm. Right kidney measures 12.2 cm in length. No ascites. IMPRESSION: Echogenic liver suggestive of hepatocellular disease. This most commonlyrepresents fatty infiltration. The median shear wave speed is 1.1 m/s. This is decreased from 1.8 m/s onprevious exam. This is less than or equal to 1.3 m/s, which correspondswith a high probability of being normal. [employer] OF [employer]IOLOGISTS IN ULTRASOUND CONSENSUS: In the setting of elevated liver function tests, nonfasting, vascularcongestion, etc., the stage of liver fibrosis may be overestimated. Insome patients with NAFLD, the cut-off values for compensated advancedchronic liver disease may be lower. In causes other than viral hepatitisand NAFLD, the cut-off values are not well established. us Teto Noble MD IMG US ABDOMEN Final Result documented in this encounter Visit Diagnoses Diagnosis GARCÍA (nonalcoholic steatohepatitis)- Primary Other chronic nonalcoholic liver disease GARCÍA (nonalcoholic steatohepatitis) Other chronic nonalcoholic liver disease documented in this encounter Care Teams Extension Service Agent Relationship Specialty Start Date End Date Vitor Levy MD [address] [place] [phone] PCP - General Family Medicine 08/03/22 documented as of this encounter Additional Source Comments The information contained in this document represents components of the legal health record. It is not the complete legal health record.[facility]
--- OUTSIDE RECORDS SUMMARY | 2025-05-24 12:36 | XMS_ITS | Encounter Summary ---
Author Organization [facility] Address [address] [place] [address] Phone Care Team Providers Care Transportation Broker Name Role Phone Vitor Levy MD Primary Care Provider + Reason for Referral * Physical Therapy (Within 1 month) - New Request Specialty Diagnoses / Procedures Referred By Clare islas Referred To Contact Diagnoses Primary osteoarthritis of right knee Kyle Enamorado MD [address] [place] [address] Orthopedics & Sports [place], [place] [address] Phone: tel: fax: [email or web address] Referral ID Status Reason Start Date Expiration Date V isits Requested Visits Authorized [id number] New Request 05/09/2025 05/09/2026 1 1 Encounter Details Date Type Department Care Team (Late st Contact Info) Description 05/09/[address] [facility] [address] [place] [address] Kyle Enamorado MD [address] [place] [address] Orthopedics & Sports [place], [place] [address] Primary osteoarthritis of right knee (Primary Dx) Social History Tobacco Use Types [...] Description 09/19/2025 3:00 PM EDT Office Visit [facility] [address] [place] [address] Kyle Enamorado MD [address] [place] [address] Orthopedics & Sports Medicine, [place] [address] [email or web address] 04/07/2026 Hospital Encounter [facility] Endoscopy Admitting Dept Virtual Department [address] [place] [address] Teto Noble MD [address] [place] [address] 04/07/2026 Procedure Pass [facility] Endoscopy Admitting Dept Virtual Department [address] [place] [address] 48[address] Scheduled Procedures Name Priority Associated Diagnoses Date/Ti me COLONOSCOPY History of adenomatous polyp of colon Scheduled Referrals Name Type Priority Associated Diagnoses Orde r Schedule Ambulatory referral to External Physical Therapy Outpatient Referral Routine Primary osteoarthritis of right knee Ordered: 05/09/2025 documented as of this encounter Visit Diagnoses Diagnosis Primary osteoarthritis of right knee- Primary documented in this encounter Care Teams Transportation Broker Relationship Specialty Start Date End Date Vitor Levy MD [address] [place] [address] PCP - General Family Medicine 08/03/22 documented as of this encounter Additional Source Comments The information contained in this document represents components of the legal health record. It is not the complete legal health record.[facility]
--- OUTSIDE RECORDS SUMMARY | 2025-05-24 12:36 | XMS_ITS | Encounter Summary ---
Author Organization [facility] Address [address] [place] [address] Phone Care Team Providers Care Division Human Resources Manager Name Role Phone Migue Gilliam MD Primary Care Provider Glenroy Dowling MD Primary Care Provider [phone] Vitor Levy MD Primary Care Provider + Encounter Details Date Type Department Care Team (Latest Contact Info) Description 08/24/2018 Transcribe Orders [address] [place] [address] Teto Noble MD [address] [place] [address] [phone] [email or web address] Diagnosis unknown (Primary Dx) Social History Tobacco Use Types Packs/Day Years Used Date Smoking Tobacco: Never Assessed Sex and Gender Information Value Date Recorded [...] Description 09/19/2025 3:00 PM EDT Office Visit [facility] [address] [place] [address] Kyle Enamorado MD [address] [place] [address] Orthopedics & Sports Medicine, [place] [address] 04/07/2026 Hospital Encounter [facility] Endoscopy Admitting Dept Virtual Department 30 [place] [address] Teto Noble MD [address] [place] [address] 04/07/2026 Procedure Pass [facility] Endoscopy Admitting Dept Virtual Department 30 [place] [address] Scheduled Procedures Name Priority Associated Diagnoses Date/Ti me COLONOSCOPY History of adenomatous polyp of colon documented as of this encounter Visit Diagnoses Diagnosis Diagnosis unknown- Primary documented in this encounter Care Teams Division Human Resources Manager Relationship Specialty Start Date End Date Migue Gilliam MD PCP - General Internal Medicine 04/12/17 04/25/19 Glenroy Abel MD PCP - General Internal Medicine 04/26/19 08/02/22 Vitor Levy MD [address] [place] [address] PCP - General Family Medicine 08/03/22 documented as of this encounter Additional Source Comments The information contained in this document represents components of the legal health record. It is not the complete legal health record.[facility]
--- OUTSIDE RECORDS SUMMARY | 2025-05-24 12:36 | XMS_ITS | Encounter Summary ---
Author Organization [facility] Address [address] [place] [address] Phone Care Team Providers Care Invasive Cardiologist Name Role Phone Patricia Gilliam MD Primary Care Provider Glenroy Dowling MD Primary Care Provider [phone] Vitor Levy MD Primary Care Provider + Encounter Details Date Type Department Care Team (Late st Contact Info) Description 04/12/2017 Ancillary Orders Virtual Department [address] [place] [address] Patricia Gilliam MD Fatty liver; Elevated LFTs Social History Tobacco Use Types Packs/Day Years [...] Description 09/19/2025 3:00 PM EDT Office Visit [facility] [address] [place] [address] Kyle Enamorado MD [address] [place] [address] Orthopedics & Sports Medicine, [facility] [place] [address] 04/07/2026 Hospital Encounter [facility] Endoscopy Admitting Dept Virtual Department 30 [place] [address] Teto Noble MD [address] [place] [address] [email or web address] 04/07/2026 Procedure Pass [facility] Endoscopy Admitting Dept Virtual Department 30 [place] [address] Scheduled Procedures Name Priority Associated Diagnoses Date/Ti me COLONOSCOPY History of adenomatous polyp of colon documented as of this encounter Results * US Abdomen Complete (04/26/2017 8:09 AM EST) Anatomical Region Laterality Modality Abdomen Ultrasound 04/26/2017 8:18 AM EST Impressions 04/26/2017 8:19 AM EST Limited by bowel gas. Stable hepatic steatosis. POS [id number] Narrative 04/26/2017 8:19 AM EST COMPARISON: 02/11/2012. ABDOMEN ULTRASOUND FINDINGS: Midline abdomen is limited by bowel gas. Liver: Stable echogenic liver with sound attenuation indicative of steatosis. No masses or acute findings. Gallbladder/Biliary Tree: Gallbladder is normal. The common bile duct measures 4 mm. Pancreas: Imaged pancreas is normal. Pancreatic tail is obscured by bowel gas. Kidneys: Normal. Spleen: Normal. Upper abdominal aorta/IVC: Grossly unremarkable. Procedure Note Patricia Quinn MD - 04/26/2017 COMPARISON: 02/11/2012. ABDOMEN ULTRASOUND FINDINGS: Midline abdomen is limited by bowel gas. Liver: Stable echogenic liver with sound attenuation indicative ofsteatosis. No masses or acute findings. Gallbladder/Biliary Tree: Gallbladder is normal. The common bile ductmeasures 4 mm. Pancreas: Imaged pancreas is normal. Pancreatic tail is obscured bybowel gas. Kidneys: Normal. Spleen: Normal. Upper abdominal aorta/IVC: Grossly unremarkable. IMPRESSION: Limited by bowel gas. Stable hepatic steatosis. POS [id number] us Patricia Gilliam MD IMG US ABDOMEN Final Result documented in this encounter Visit Diagnoses Diagnosis Fatty liver Other chronic nonalcoholic liver disease Elevated LFTs Other abnormal blood chemistry Fatty liver Other chronic nonalcoholic liver disease Elevated LFTs Other abnormal blood chemistry documented in this encounter Care Teams Invasive Cardiologist Relationship Specialty Start Date End Date Patricia Gilliam MD PCP - General Internal Medicine 04/12/17 04/25/19 Glenroy Abel MD PCP - General Internal Medicine 04/26/19 08/02/22 Vitor Levy MD [address] [place] [address] PCP - General Family Medicine 08/03/22 documented as of this encounter Additional Source Comments The information contained in this document represents components of the legal health record. It is not the complete legal health record.[facility]
--- OUTSIDE RECORDS SUMMARY | 2025-05-24 12:36 | XMS_ITS | Encounter Summary ---
Author Organization [facility] Address [address] [place] [phone] Phone Care Team Providers Care Hotel Assistant General Manager Name Role Phone Glenroy Abel MD Primary Care Provider [phone] Vitor Levy MD Primary Care Provider + Encounter Details Date Type Department Care Team (Latest Contact Info) Description 04/26/2019 Transcribe Orders [facility] [place] [address] [place] [address] Teto Noble MD 10 [facility] [place] 2 [place] [address] Isabelle (Primary Dx) Social History Tobacco Use Types [...] Description 09/19/2025 3:00 PM EDT Office Visit [facility] [address] [place] [address] [phone] Kyle Enamorado MD [address] [place] [address] Orthopedics & Sports Medicine, [facility]. [place], [place] [phone] [email or web address] 04/07/2026 Hospital Encounter [facility] Endoscopy Admitting Dept Virtual Department [address] [place] [address] Teto Noble MD [address] [place] [address] [email or web address] 04/07/2026 Procedure Pass [facility] Endoscopy Admitting Dept Virtual Department [address] [place] [address] Scheduled Procedures Name Priority Associated Diagnoses Date/Ti me COLONOSCOPY History of adenomatous polyp of colon documented as of this encounter Results * CBC (04/26/2019 8:42 AM EST) WBC 7.94 3.40 - 11.20 K/uL [facility] RBC 5.36 4.50 - 5.50 M/uL [facility] HGB 16.2 13.0 - 17.0 g/dL [facility] HCT 45.7 40.0 - 51.0 % [facility] PLT 254 130 - 400 K/uL [facility] MCV 85.3 79.0 - 98.0 fL [facility] MCH 30.2 27.0 - 34.8 pg [facility] MCHC 35.4 31.5 - 36.0 g/dL [facility] RDW 13.2 10.8 - 14.6 % [facility] MPV 9.5 9.4 - 12.4 fl [facility] NRBC 0.00 0.00 /100 WBCs [facility] ABSOLUTE NRBC 0.00 0.00 K/uL [facility] Blood 04/26/2019 8:42 AM EST 04/26/2019 8:47 AM EST us Teto Noble MD LAB BLOOD BKR ORDERABLES Final Result [address] [address] documented in this encounter Visit Diagnoses Diagnosis Melena- Primary Blood in stool documented in this encounter Care Teams Hotel Assistant General Manager Relationship Specialty Start Date End Date Glenroy Abel MD PCP - General Internal Medicine 04/26/19 08/02/22 Vitor Levy MD [address] [place] [address]892 PCP - General Family Medicine 08/03/22 documented as of this encounter Additional Source Comments The information contained in this document represents components of the legal health record. It is not the complete legal health record.[facility]
--- OUTSIDE RECORDS SUMMARY | 2025-05-24 12:36 | XMS_ITS | Encounter Summary ---
Author Organization [facility] Address [address] [place] [address] Phone Care Team Providers Care Distillery Miller Name Role Phone Migue Gilliam MD Primary Care Provider Glenroy Dowling MD Primary Care Provider [phone] Vitor Levy MD Primary Care Provider + Encounter Details Date Type Department Care Team (Latest Contact Info) Description 12/02/2017 Transcribe Orders [address] [place] [address] Maryam Kelly PA-C [address], [address] [place] [address] [email or web address] Elevated liver enzymes (Primary Dx); Fatty liver Social History Tobacco Use Types Packs/Day Years [...] [facility] [address] [place] [address] Kyle Enamorado MD [address] [place] [address] Orthopedics & Sports Medicine, [place] [address] 04/07/2026 Hospital Encounter [facility] Endoscopy Admitting Dept Virtual Department [address] [place] [address] Teto Noble MD [address] [place] [address] 04/07/2026 Procedure Pass [facility] Endoscopy Admitting Dept Virtual Department [address] [place] [address] Scheduled Procedures Name Priority Associated Diagnoses Date/Ti me COLONOSCOPY History of adenomatous polyp of colon documented as of this encounter Results * Miscellaneous lab test (12/02/2017 11:50 AM EDT) TESTS REQUESTED (TEST ID: [id number]) ANTI LIVER CYTOSOL 1 ANTIBODIES [facility] SPECIMEN/TUBE TYPE RED TUBE [facility] REQUEST RECEIVED Request received. A separate order for the requested test will be generated by the laboratory. [facility] Blood 12/02/2017 11:5 0 AM EDT 12/02/2017 11:54 AM EDT us Maryam Kelly PA-C LAB BLOOD ORDERABLES Final Resu lt [address] [address] * Liver kidney microsomal (LKM1) antibodies (12/02/2017 11:50 AM EDT) LKM1 ANTIBODIES <5.0 <=20.0 (Negative) U [facility] DPT OF LAB MED AND PAT+ Blood 12/02/2017 11:5 0 AM EDT 12/02/2017 11:55 AM EDT us Maryam Kelly PA-C LAB BLOOD ORDERABLES Final Resu lt [facility] DPT OF LAB MED AND PAT+ [address] [place] [address] * Immunoglobulin G (12/02/2017 11:50 AM EDT) IMMUNOGLOBULIN G 900 700 - 1,600 mg/dL [facility] Blood 12/02/2017 11:5 0 AM EDT 12/02/2017 11:55 AM EDT us Maryam Kelly PA-C LAB BLOOD BKR ORDERABLES Final Result [facility] [address] [place] [address] documented in this encounter Visit Diagnoses Diagnosis Elevated liver enzymes- Primary Other nonspecific abnormal serum enzyme levels Fatty liver Other chronic nonalcoholic liver disease documented in this encounter Care Teams Distillery Miller Relationship Specialty Start Date End Date Migue Gilliam MD PCP - General Internal Medicine 04/12/17 04/25/19 Glenroy Abel MD PCP - General Internal Medicine 04/26/19 08/02/22 Vitor Levy MD [address] [place] [address] PCP - General Family Medicine 08/03/22 documented as of this encounter Additional Source Comments The information contained in this document represents components of the legal health record. It is not the complete legal health record.[facility]
--- OUTSIDE RECORDS SUMMARY | 2025-05-24 12:36 | XMS_ITS | Encounter Summary ---
Author Organization [facility] Address [address] [place] [address] Phone Care Team Providers Care Pig Machine Crane Operator Name Role Phone Vitor Levy MD Primary Care Provider + Reason for Referral * Physical Therapy (Within 1 month) - New Request Specialty Diagnoses / Procedures Referred By Clare islas Referred To Contact Physical Therapy Diagnoses Primary osteoarthritis of right knee Kyle Enamorado MD [address] [place] [address] [facility] [place] [address] Phone: tel: fax: mailto:[email or web address] [address] [address] Phone: tel: Referral ID Status Reason Start Date Expiration Date V isits Requested Visits Authorized [id number] New Request 05/06/2025 05/06/2026 1 1 Encounter Details Date Type Department Care Team (Late st Contact Info) Description 05/06/2025 Orders Only [facility] [address] [place] [address] [phone] Kyle Enamorado MD [address] [place] [address] Orthopedics & Sports Medicine, [place], [place] [phone] [email or web address] Primary osteoarthritis of right knee (Primary Dx) [...] Description 09/19/2025 3:00 PM EDT Office Visit [facility] [address] [place] [address] Kyle Enamorado MD [address] [place] [address] Orthopedics [facility] Sports Medicine, [place] [address] [email or web address] 04/07/2026 Hospital Encounter [facility] Endoscopy Admitting Dept Virtual Department [address] [place] [address] Teto Noble MD [address] [place] [address] 04/07/2026 Procedure Pass [facility] Endoscopy Admitting Dept Virtual Department [address] [place] [address] Scheduled Procedures Name Priority Associated Diagnoses Date/Ti me COLONOSCOPY History of adenomatous polyp of colon Scheduled Referrals Name Type Priority Associated Diagnoses Orde r Schedule Ambulatory referral to [facility] Physical Therapy Outpatient Referral Routine Primary osteoarthritis of right knee Ordered: 05/06/2025 documented as of this encounter Visit Diagnoses Diagnosis Primary osteoarthritis of right knee- Primary documented in this encounter Care Teams Pig Machine Crane Operator Relationship Specialty Start Date End Date Vitor Levy MD [address] [place] [address] PCP - General Family Medicine 08/03/22 documented as of this encounter Additional Source Comments The information contained in this document represents components of the legal health record. It is not the complete legal health record.[facility]
--- OUTSIDE RECORDS SUMMARY | 2025-05-24 12:36 | XMS_ITS | Clinical Summary ---
Author Organization [facility] Address [address] [place] [phone] Phone Care Team Providers Care Veterinarian Small Animal Name Role Phone Vitor Levy MD Primary Care Provider + Allergies Active Allergy Reactions Criticality Noted Date Comments Codeine 05/09/2019 Scallops 05/09/2019 Trazodone 05/09/2019 Medications MELATONIN ORAL Take 15 mg by mouth nightly at bedtime. Active buspirone HCl (BUSPIRONE ORAL) Take 20 mg by mouth daily. Active GABAPENTIN ORAL Take 400 mg by mouth nightly at bedtime. Active escitalopram oxalate (LEXAPRO ORAL) Take 10 mg by mouth daily. Active vitamin E acetate (VITAMIN E ORAL) Take 400 Units by mouth daily. Active Lactobacillus acidophilus (PROBIOTIC ORAL) Take by mouth. Active metFORMIN (GLUCOPHAGE) 500 MG tablet Take 500 mg by mouth 2 (two) times a day with meals. Takes 1000mg at breakfast; 500mg at noon and 500mg in evening Active multivitamin per tablet Take 1 tablet by mouth daily. Active docosahexaenoic acid/epa (FISH OIL ORAL) Take 1,200 mg by mouth daily. Active clomiPHENE citrate (CLOMID) 50 mg tablet Take 25 mg by mouth daily. Active lisinopril (PRINIVIL,ZESTRI L) 10 MG tablet Take 10 mg by mouth daily. 07/31/2022 Active RYBELSUS 3 mg tablet 7 mg. 07/07/2022 Active tadalafiL (CIALIS) 5 MG tablet 09/20/2023 Active semaglutide (RYBELSUS) 7 mg tablet Take 7 mg by mouth daily. Active atorvastatin (LIPITOR) 10 MG tablet Take by mouth. 03/03/2024 Active aspirin 81 MG EC tablet Take 81 mg by mouth daily. Active REZDIFFRA 100 mg Tab 03/20/2024 Active glucagon (BAQSIMI) 3 mg/actuation [place] 3 mg. 06/11/2024 Active bupropion HCl (WELLBUTRIN ORAL) 11/02/2024 Active ipratropium (ATROVENT) 21 mcg (0.03 %) nasal spray 1 spray by Nasal route. 04/25/2025 Active Active Problems Problem Noted Date Diagnosed Date History of adenomatous polyp of colon 05/08/2025 Assessment & Plan (05/08/2025 2:18 PM EST): Patient will be due for colonoscopy in April 2026. Given elevated BMI he will likely need to be done at [facility] Orders: Endoscopy Case Request: COLONOSCOPY Metabolic dysfunction-associ ated steatotic liver disease (MASLD) 05/05/2025 Assessment & Plan (05/08/2025 2:18 PM EST): We will continue King different 100 mg daily. The patient will be inquiring about other GLP-1 agonist with an product/device technologist. Orders: Hepatic Panel (LFTs); Future Liver fibrosis 05/05/2025 Assessment & Plan (05/08/2025 2:15 PM EST): Orders: CBC; Future Primary osteoarthritis of right knee 08/05/2022 Encounters Date Type Department Care Team Description 05/09/2025 Orders Only [facility] [address] [place] [address] Kyle Enamorado MD Primary osteoarthritis of right knee (Primary Dx) 05/08/2025 2:00 PM EST Office Visit [facility] [address] [place] [address] Melanie Ruelas MD Metabolic dysfunction-associate d steatotic liver disease (MASLD) (Primary Dx); Liver fibrosis; History of adenomatous polyp of colon 05/06/2025 Orders Only [facility] [address] [place] [address] Kyle Enamorado MD Primary osteoarthritis of right knee (Primary Dx) 04/19/2025 2:00 PM EST Office Visit [facility] [address] [address] Kyle Enamorado MD Primary osteoarthritis of right knee (Primary Dx) 04/17/2025 Orders Only [facility] [address] [address] ProviderMarc MD 04/17/2025 Ancillary Orders [facility]Outside Imaging [address] [place] [address] Cristal, MD Cristal 04/05/2025 - 04/05/2025 11:59 PM EDT Hospital Encounter [facility],Outside Imaging [address] [place] [address] Unknown, MD Cristal Discharge Disposition: Home or Self Care 03/29/2025 Telephone [facility] Medicine [address] [address] Desiree Lundy RN 03/21/2025 3:30 PM EDT Office Visit [facility] [address] [address] Klye Enamorado MD Primary osteoarthritis of right knee (Primary Dx) from Last 3 Months Social History Tobacco Use Types Packs/Day Years Used Date Smoking Tobacco: Former Cigarettes Passive Smoke Exposure: Past Smokeless Tobacco: Never Tobacco Cessation:Counseling Given: Not Answered Comments:smoked 1989 for 3-6months Alcohol Use Standard Drinks/Week Comments Not Currently [...] not to disclose 2020 7:44 PM EST Last Filed Vital Signs Vital Sign Reading Time Taken Comments Blood Pressure 124/68 05/08/2025 2:00 PM EST Pulse 101 05/08/2025 2:00 PM EST Temperature 37.1 C (98.8 F) 10/26/2023 11:00 AM EDT Respiratory Rate 15 10/26/2023 11:10 AM EDT Oxygen Saturation 98% 05/08/2025 2:00 PM EST Inhaled Oxygen Concentration - - Weight 116.6 kg (257 lb) 05/08/2025 2:00 PM EST Height 170.2 cm (5' 7 ) 05/08/2025 2:00 PM EST Body Mass Index 40.25 05/08/2025 2:00 PM EST Plan of Treatment Upcoming Encounters Date Type Department Care Team (Late st Contact Info) Description 09/19/2025 3:00 PM EDT Office Visit [facility] [address] [place] [address] Kyle Enamorado MD [address] [place] [address] Orthopedics & Sports Medicine, [place] [address] 04/07/2026 Hospital Encounter [facility] Endoscopy Admitting Dept Virtual Department [address] [place] [address] Melanie Ruelas MD [address] [place] [phone] 04/07/2026 Procedure Pass [facility]oscopy Admitting Dept Virtual Department [address] [place] [address] Scheduled Procedures Name Priority Associated Diagnoses Date/Ti me COLONOSCOPY History of adenomatous polyp of colon Health Maintenance Due Date Last Done Comments DEPRESSION SCREENING 1978 SMOKING Hx and SMOKELESS TOBACCO SCREENING 1979 HEPATITIS A VACCINES (1 of 2 - Risk 2-dose series) 1985 COLOGUARD 2011 FIT TEST 2011 FOBT 2011 SIGMOIDOSCOPY 2011 VIRTUAL COLONOSCOPY 2011 RSV VACCINE (1 - Risk 50-74 years 1-dose series) 2016 LIPID PANEL 08/25/2023 08/24/2018, 05/01/2018 CREATININE LEVEL 10/25/2024 10/26/2023, , 11/28/2017, Additional history exists POTASSIUM LEVEL 10/25/2024 10/26/2023, 08/05, 11/28/2017, Additional history exists SCREENING FOR DIABETES 10/25/2026 10/26/2023 COLONOSCOPY 05/04/2031 05/04/2021 COLORECTAL CANCER SCREENING 05/04/2031 Adult Td,Tdap Booster 05/05/2031 05/05/2021, 012 HEPATITIS C SCREENING Completed 11/28/2017 , 11/28/2017, 10/10/2017 HIV ONE-TIME SCREENING (18-65 YEARS) Completed 05/01/2018 ZOSTER VACCINES Completed 08/07/2019, 05/11/2019 PNEUMOCOCCAL VACCINES (50+ years) Completed 03/17/2023 COVID-19 VACCINE Completed 02/09/2025, 11/2023, 03/17/2023, Additional history exists INFLUENZA VACCINE Completed 02/09/2025, , 02/22/2023, Additional history exists HIB VACCINES Aged Out No longer eligi ble based on patient's age to complete this topic MENINGOCOCCAL VACCINES (ACWY) Aged Out No longer eligible based on patient's age to complete this topic MENINGOCOCCAL VACCINES (B) Aged Out N o longer eligible based on patient's age to complete this topic Medical Devices Not on file Procedures Procedure Name Priority Date/Time Associated Diagnosis Comments LFTS (HEPATIC PANEL) Routine 05/08/2025 2:29 PM EST Metabolic dysfunction-associa angus steatotic liver disease (MASLD) CBC Routine 05/08/2025 2:29 PM EST Liver fibrosis OUTSIDE IMAGING Routine 04/17/2025 3:37 PM EST MRI LOWER EXTREMITY OUTSIDE (NO INTERPRETATION) Routine 04/05/2025 12:00 AM EDT BASIC METABOLIC PANEL (BMP) STAT 10/26/2023 10:49 AM EDT ENDOSCOPY, COLON 05/04/2021 8:57 AM EST LIPID PANEL Routine 08/24/2018 9:32 AM EDT Other fatigue Routine medical exam High glucose HEPATITIS B SURFACE ANTIGEN Routine 11/28/2017 8:25 AM EDT Fatty liver Elevated liver enzymes from Last 3 Months or Most Recently Relevant to Health Maintenance Results * (ABNORMAL) Hepatic Panel (LFTs) (05/08/2025 2:29 PM EST) AST 40(H) <40 U/L 05/08/2025 6:26 PM [facility] ALT 74(H) <50 U/L 05/08/2025 6:26 PM [facility] Alkaline Phosphatase 83 40 - 130 U/L 05/08/2025 6:26 PM [facility] Bilirubin, Total 0.4 0.0 - 1.2 mg/dL 05/08/2025 6:26 PM [facility] Bilirubin, Direct 0.1 0.0 - 0.3 mg/dL 05/08/2025 6:26 PM [facility] Total Protein 6.8 6.4 - 8.3 g/dL 05/08/2025 6:26 PM [facility] Albumin 4.0 3.5 - 5.2 g/dL 05/08/2025 6:26 PM [facility] Globulin 2.8 1.9 - 4.1 g/dL 05/08/2025 6:26 PM [facility] Blood (Blood) Venipuncture / Unknown 05/08/2025 2:29 PM EST 05/08/2025 2:29 PM EST us Melanie Ruelas MD LAB BLOOD BKR ORDERABLES Final Result [address] [address] * (ABNORMAL) CBC (05/08/2025 2:29 PM EST) WBC 9.01 4.00 - 11.00 K/uL 05/08/2025 6:13 PM [facility] RBC 4.89 4.50 - 5.90 M/uL 05/08/2025 6:13 PM [facility] Hemoglobin 14.3 13.5 - 17.5 g/dL 05/08/2025 6:13 PM [facility] Hematocrit 42.7 41.0 - 53.0 % 05/08/2025 6:13 PM [facility] MCV 87.3 80.0 - 100.0 fL 05/08/2025 6:13 PM [facility] MCH 29.2 27.0 - 31.0 pg 05/08/2025 6:13 PM [facility] MCHC 33.5 32.0 - 36.0 g/dL 05/08/2025 6:13 PM [facility] PLT 167 150 - 450 K/uL 05/08/2025 6:13 PM [facility] MPV 10.1 8.4 - 12.0 fL 05/08/2025 6:13 PM [facility] RDW-CV 15.0(H) 11.5 - 14.5 % 05/08/2025 6:13 PM [facility] Absolute NRBC 0.00 <=0.00 K cells/uL 05/08/2025 6:13 PM [facility] NRBC 0.0 <=0.0 /100 WBCs 05/08/2025 6:13 PM [facility] Blood (Blood) Venipuncture / Unknown 05/08/2025 2:29 PM EST 05/08/2025 2:29 PM EST us Melanie Ruelas MD LAB BLOOD BKR ORDERABLES Final Result [address] [place] [address] * Outside Imaging Report Only (04/17/2025 3:37 PM EST) us Historical Provider MD [facility] XR CHEST Final Res ult * MRI Lower Extremity Outside (No Interpretation) (04/05/2025 12:00 AM EDT) Narrative SYSTEMGENERATED, DOCUMENTATION - 04/17/2025 9:23 AM EST This study is for PACS storage only and not for interpretation. us Unknown Unknown MD [facility] OUTSIDE IMAGING W/OUT INT ERPRETATION Final Result * (ABNORMAL) Basic metabolic panel (10/26/2023 10:49 AM EDT) SODIUM 138 133 - 146 mmol/L [facility] CHLORIDE 105 96 - 108 mmol/L [facility] POTASSIUM 3.9 3.3 - 5.1 mmol/L [facility] CO2 20(L) 21 - 35 mmol/L [facility] BUN 10 6 - 19 mg/dL [facility] CREATININE 0.80 0.5 - 1.5 mg/dL [facility] GLUCOSE 99 70 - 99 mg/dL [facility] CALCIUM 9.5 8.4 - 10.3 mg/dL [facility] EGFR 103 >59 mL/min/1.7 3m2 [facility] Comment:Estimated glomerular filtration rate calculated using the CKD-EPI refit equation. ANION GAP 17 10 - 20 mmol/L [facility] Blood 10/26/2023 10:4 9 AM EDT 10/26/2023 11:11 AM EDT us Dyan Galvez PA-C LAB BLOOD BKR ORDERABLES Final Result [address] [address] * ENDOSCOPY, COLON (05/04/2021 8:57 AM EST) Narrative Transcriptions Melanie Ruelas MD - 05/04/2021 8:57 AM EST Patient Name: Greyson Hayden Attending MD:: MELANIE RUELAS MD Procedure Date: 05/04/2021 8:57 AM Date of : 1965 Age: 56 Admit Type: Outpatient Gender: Male Room: [place] [address] Referring MD: Glenroy Abel MD Exam Type: Colonoscopy Indications: Surveillance: Personal history of adenomatous polypson last colonoscopy > 5 years ago, Last colonoscopy: April 2016 Medications: Monitored Anesthesia Care Procedure: Informed consent was obtained from the patient after discussion of the indications, limitations, alternatives, benefits, and risks of the procedure. Risks specifically discussed include but are not limited to medication reactions, missed lesions, bleeding, perforation, or the need for emergentsurgery. Throughout the procedure, the patient's bloodpressure, pulse, end-tidal CO2, and oxygen saturations were monitored continuously. The Olympus adult variable colonoscope [id number] #2was introduced through the anus and advanced to thececum, identified by the appendiceal orifice, ileocecalvalve and palpation. The colonoscopy was performed without difficulty. The patient tolerated the procedurefairly well. The quality of the bowel preparation wasgood. Complications: No immediate complications. Estimated blood loss: Minimal. Findings: The perianal and digital rectal examinations were normal. Pertinent negatives include normal sphincter tone. A 6 mm polyp was found at 65 cm proximal to theanus. The polyp was sessile. The polyp was removed with a cold snare. Resection and retrieval were complete. Estimated blood loss was minimal. Retroflexion in the right colon was performed. Many small-mouthed diverticula were found in the sigmoid colon and descending colon. Non-bleeding internal hemorrhoids were found during retroflexion. The hemorrhoids were small. The exam was otherwise without abnormality on direct and retroflexion views. Impression: - One 6 mm polyp at 65 cm proximal to the anus,removed with a cold snare. Resected and retrieved. - Diverticulosis in the sigmoid colon and in the descending colon. - Non-bleeding internal hemorrhoids. - The examination was otherwise normal on direct and retroflexion views. Recommendation: - I will send results of your biopsy to you and your referring physician or provider. If you do notreceive notification within 3 weeks, please call ouroffice. - Repeat colonoscopy in 5 years for surveillancebased on pathology results. MELANIE RUELAS MD 05/04/2021 9:18:48 AM This report has been signed electronically. Number of Addenda: 0 Note Initiated On: 05/04/2021 8:57 AM Procedure Code(s): --- Professional --- 58197, Colonoscopy, flexible; with removal of tumor(s), polyp(s), or other lesion(s) by snare technique --- Technical --- 72180, Colonoscopy, flexible; with removal of tumor(s), polyp(s), or other lesion(s) by snare technique Diagnosis Code(s): --- Professional --- Z86.010, Personal history of colonic polyps D12.6, Benign neoplasm of colon, unspecified K64.8, Other hemorrhoids K57.30, Diverticulosis of large intestine without perforation or abscess without bleeding --- Technical --- Z86.010, Personal history of colonic polyps D12.6, Benign neoplasm of colon, unspecified K64.8, Other hemorrhoids K57.30, Diverticulosis of large intestine without perforation or abscess without bleeding CPT copyright 2018 [employer]. All rights reserved. The codes documented in this report are preliminary and upon director of it operations reviewmay be revised to meet current compliance requirements. Procedure Date: 05/04/2021 8:57:17 AM [address] [place] [address] us Glenroy Abel MD GI PROCEDURE ORDERABLES F inal Result * Lipid panel (08/24/2018 9:32 AM EDT) HDL 40 mg/dL [facility] Comment: Interpretation <40 mg/dL: Low HDL cholesterol (major risk factor for CHD) Greater than or equal to 60 mg/dL: High HDL cholesterol ( negative risk factor for CHD) HDL - cholesterol is affected by a number of factors, e.g. smoking, excerise, hormones, sex and age. CHOLESTEROL 168 0 - 240 mg/dL [facility] TRIGLYCERIDES 158 30 - 160 mg/dL [facility] LDL 96 50 - 129 mg/dL [facility] Comment: LDL levels in terms of risk for coronary heart disease: <100 mg/dL: Optimal 100-129 mg/dL: Near or above optimal 130-159 mg/dL: Borderline high 160-189 mg/dL: High >190 mg/dL: Very High CARDIAC RISK RATIO 4.2 3.4 - 5.0 C [facility] Blood 08/24/2018 9:32 AM EDT 08/24/2018 9:35 AM EDT us Freddie Valladares MD LAB BLOOD BKR ORDERABLES Final Result [facility] [address] [place] [address] * Hepatitis B surface antigen (11/28/2017 8:25 AM EDT) HBV SURFACE ANTIGEN Negative Negative [facility] Blood 11/28/2017 8:25 AM EDT 11/28/2017 8:30 AM EDT us Maryam Kelly PA-C LAB BLOOD BKR ORDERABLES Final Result [facility] [address] [place] [address] from Last 3 Months or Most Recently Relevant to Health Maintenance Insurance [address] BLUE CROSS OUT OF STATE PPO BLUE CROSS OUT OF STATE PPO [place] CR[place] OUT OF STATE PPO BLUE CROSS OUT OF STATE PPO [place] OUT OF STATE PPO [place] OUT OF STATE PPO [place] OUT OF STATE PPO [place] OUT OF STATE PPO [place] OUT OF STATE PPO Care Teams Veterinarian Small Animal Relationship Specialty Start Date End Date Vitor Levy MD [address] [place] [phone] PCP - General Family Medicine 08/03/22 Additional Source Comments The information contained in this document represents components of the legal health record. It is not the complete legal health record.[facility]
--- OUTSIDE RECORDS SUMMARY | 2025-05-24 12:36 | XMS_ITS | Encounter Summary ---
Author Organization [facility] Address [address] [place] [address] Phone Care Team Providers Care Application Dba Name Role Phone Migue Gilliam MD Primary Care Provider Glenroy Dowling MD Primary Care Provider [phone] Vitor Lvey MD Primary Care Provider + Encounter Details Date Type Department Care Team (Latest Contact Info) Description 10/10/2017 Transcribe Orders [facility]b [address] [place] [address] Migue Gilliam MD Fatty liver (Primary Dx) Social History Tobacco Use Types [...] Description 09/19/2025 3:00 PM EDT Office Visit [facility] [address] [place] [address] Kyle Enamorado MD [address] [place] [address] [facility] [place] [address] 04/07/2026 Hospital Encounter [facility] Admitting Dept Virtual Department [address] [place] [address] Teto Noble MD [address] [place] [address] [email or web address] 04/07/2026 Procedure Pass [facility] Endoscopy Admitting Dept Virtual Department [address] [place] [address] Scheduled Procedures Name Priority Associated Diagnoses Date/Ti me COLONOSCOPY History of adenomatous polyp of colon documented as of this encounter Results * HIV-1/2 antigen/antibody (10/10/2017 8:47 AM EDT) Pathologist [facility] HIV Antibod(ies) NON-REACTI VE NON-REACTI VE [facility] HIV-1 ANTIGEN NON-REACTI VE NON-REACTI VE [facility] Blood 10/10/2017 8:47 AM EDT 10/10/2017 8:50 AM EDT Migue Gilliam MD LAB BLOOD BKR ORDERABLES Final Result [address] [address] * Hepatitis C antibody, qualitative (10/10/2017 8:47 AM EDT) Pathologist [facility] HCV Negative Negative [facility] Comment: This is a screening test and should be confirmed with molecular testing Blood 10/10/2017 8:47 AM EDT 10/10/2017 8:50 AM EDT Migue Gilliam MD LAB BLOOD BKR ORDERABLES Final Result [address] [address] * (ABNORMAL) Comprehensive metabolic panel (10/10/2017 8:47 AM EDT) Pathologist [facility] SODIUM 140 133 - 146 mmol/L [facility] POTASSIUM 4.3 3.3 - 5.1 mmol/L [facility] CHLORIDE 101 96 - 108 mmol/L [facility] CO2 27 21 - 35 mmol/L [facility] BUN 11 6 - 19 mg/dL [facility] CREATININE 0.90 0.5 - 1.5 mg/dL [facility] GLUCOSE 110(H) 70 - 99 mg/dL [facility] ALBUMIN 4.0 3.9 - 4.8 g/dL [facility] TOTAL PROTEIN 7.1 6.5 - 8.0 g/dL [facility] CALCIUM 9.1 8.4 - 10.3 mg/dL [facility] ALKALINE PHOSPHATASE 60 39 - 117 U/L [facility] TOTAL BILIRUBIN 0.7 0.0 - 1.2 mg/dL [facility] AST 73(H) 0 - 37 U/L [facility] ALT 135(H) 0 - 40 U/L [facility] GLOBULIN 3.1 1 - 4.8 g/dL [facility] EGFR 99 >59 mL/min/1.7 3m2 [facility] Comment:If patient is black, multiply result by 1.159. The eGFR calculation has changed from the MDRD equation to the CKD-EPI equation as of August 09, 2017. ANION GAP 16 10 - 20 mmol/L [facility] Blood 10/10/2017 8:47 AM EDT 10/10/2017 8:50 AM EDT us Migue Gilliam MD LAB BLOOD BKR ORDERABLES Final Result Performing Organization Address City/State/[facility] Co de Phone Number [address] [address] documented in this encounter Visit Diagnoses Diagnosis Fatty liver- Primary Other chronic nonalcoholic liver disease documented in this encounter Care Teams Application Dba Relationship Specialty Start Date End Date Migue Gilliam MD PCP - General Internal Medicine 04/12/17 04/25/19 Glenroy Abel MD PCP - General Internal Medicine 04/26/19 08/02/22 Vitor Levy MD [address] [place] [phone] PCP - General Family Medicine 08/03/22 documented as of this encounter Additional Source Comments The information contained in this document represents components of the legal health record. It is not the complete legal health record.[facility]
--- OUTSIDE RECORDS SUMMARY | 2025-05-24 12:36 | XMS_ITS | Encounter Summary ---
Author Organization [facility] Address [address] [place] [address] Phone Care Team Providers Care Rail Filler Name Role Phone Glenroy Abel MD Primary Care Provider [phone] Vitor Levy MD Primary Care Provider + Encounter Details Date Type Department Care Team (Latest Contact Info) Description 10/15/2020 Transcribe Orders Virtual Department [address] [place] [address] Teto Noble MD [address] [place] [address] [phone] [email or web address] Fatty liver (Primary Dx); Abnormal LFTs Social History Tobacco Use Types Packs/Day Years Used Date Smoking Tobacco: Never Alcohol Use Standard Drinks/Week Comments Not Currently 0 (1 standard drink = 0.6 oz pur e alcohol) Sex and Gender Information Value Date Recorded [...] Description 09/19/2025 3:00 PM EDT Office Visit [facility] [address] [place] [address] Kyle Enamorado MD [address] [place] [address] [facility] [place] [address] 04/07/2026 Hospital Encounter [facility] Admitting Dept Virtual Department [address] [place] [address] Teto Noble MD [address] [place] [address] [email or web address] 04/07/2026 Procedure Pass [facility] Endoscopy Admitting Dept Virtual Department [address] [place] [address] Scheduled Procedures Name Priority Associated Diagnoses Date/Ti me COLONOSCOPY History of adenomatous polyp of colon documented as of this encounter Results * US LIVER WITH ELASTOGRAPHY (12/11/2020 10:09 AM EDT) Anatomical Region Laterality Modality Abdomen Ultrasound 12/11/2020 5:43 PM EDT Impressions 12/11/2020 5:49 PM EDT Sonographic findings compatible with liver steatosis. The IQR to median ratio is less than 15% and the measure of liver stiffness is therefore acceptable. The median shear wave speed is 1.45 m/s. This is less than 1.7 m/s, which in the absence of other known clinical signs, rules out compensated advanced chronic liver disease. RECOMMENDATION: If there are known clinical signs of compensated advanced chronic liver disease, further testing for confirmation could be considered. [employer] [facility] [employer]S[facility]: In the setting of elevated liver function tests, nonfasting, vascular congestion, etc., the stage of liver fibrosis may be overestimated. In some patients with NAFLD, the cut-off values for compensated advanced chronic liver disease may be lower. In causes other than viral hepatitis and NAFLD, the cut-off values are not well established. Narrative 12/11/2020 5:49 PM EDT TECHNIQUE: Focused ultrasound evaluation of the liver. Volumetric sweeps were obtained and reviewed. COMPARISON: Abdomen ultrasound on April 26, 2017 FINDINGS: LIVER: Diffusely echogenic liver parenchyma is compatible with steatosis. No focal lesions. Main portal vein is patent and with normal hepatopetal flow. ELASTOGRAPHY: Liver stiffness measurements were obtained in the right hepatic lobe on a [employer] ultrasound machine. 2D shear wave elastography technique was utilized following SRU guidelines. 10 valid measurements were obtained. Median shear wave speed: 1.45 m/s (6.3 kPa). IQR to median ratio: 6.06% (m/s), 11.9% (kPa). BILIARY: Gallbladder: Unremarkable Common bile duct measures 0.7 cm, mildly dilated. Additional findings: Pancreas not visualized. Upper abdominal aorta/IVC are unremarkable. No hydronephrosis. Procedure Note Sheldon Trinidad MD - 12/11/2020 TECHNIQUE: Focused ultrasound evaluation of the liver. Volumetric sweeps wereobtained and reviewed. COMPARISON: Abdomen ultrasound on April 26, 2017 FINDINGS: LIVER: Diffusely echogenic liver parenchyma is compatible with steatosis.No focal lesions. Main portal vein is patent and with normal hepatopetalflow. ELASTOGRAPHY: Liver stiffness measurements were obtained in the righthepatic lobe on a [employer] ultrasound machine. 2D shear wave elastographytechnique was utilized following SRU guidelines. 10 valid measurements were obtained. Median shear wave speed: 1.45 m/s(6.3 kPa). IQR to median ratio: 6.06% (m/s), 11.9% (kPa). BILIARY: Gallbladder: Unremarkable Common bile duct measures 0.7 cm, mildly dilated. Additional findings: Pancreas not visualized. Upper abdominal aorta/IVCare unremarkable. No hydronephrosis. IMPRESSION: Sonographic findings compatible with liver steatosis. The IQR to median ratio is less than 15% and the measure of liverstiffness is therefore acceptable. The median shear wave speed is 1.45 m/s. This is less than 1.7 m/s, whichin the absence of other known clinical signs, rules out compensatedadvanced chronic liver disease. RECOMMENDATION: If there are known clinical signs of compensated advanced chronic liverdisease, further testing for confirmation could be considered. [employer] [facility]TRAS[facility] CONSENSUS: In [...] liver- Primary Other chronic nonalcoholic liver disease Abnormal LFTs Fatty liver Other chronic nonalcoholic liver disease Abnormal LFTs documented in this encounter Care Teams Rail Filler Relationship Specialty Start Date End Date Glenroy Abel MD PCP - General Internal Medicine 04/26/19 08/02/22 Vitor Levy MD [address] [place] [address] PCP - General Family Medicine 08/03/22 documented as of this encounter Additional Source Comments The information contained in this document represents components of the legal health record. It is not the complete legal health record.[facility]
--- OUTSIDE RECORDS SUMMARY | 2025-05-24 12:36 | XMS_ITS | Encounter Summary ---
Author Organization [facility] Address [address] [place] [address] Phone Care Team Providers Care Crane Hoist Or Lift Operator Name Role Phone Migue Gilliam MD Primary Care Provider Glenroy Dowling MD Primary Care Provider [phone] Vitor Levy MD Primary Care Provider + Encounter Details Date Type Department Care Team (Latest Contact Info) Description 11/28/2017 Transcribe Orders [address] [place] [address] Maryam Kelly PA-C [address], [address] [place] [address] [email or web address] Fatty liver (Primary Dx); Elevated liver enzymes Social History Tobacco Use Types Packs/Day Years [...] 09/19/2025 3:00 PM EDT Office Visit [facility] [address] [place] [address] Kyle Enamorado MD [address] [place] [address] Orthopedics & Sports Medicine, [place] [address] 04/07/2026 Hospital Encounter [facility] Endoscopy Admitting Dept Virtual Department [address] [place] [address] Teto Noble MD [address] [place] [address] 04/07/2026 Procedure Pass [facility] Endoscopy Admitting Dept Virtual Department [address] [place] [address] Scheduled Procedures Name Priority Associated Diagnoses Date/Ti me COLONOSCOPY History of adenomatous polyp of colon documented as of this encounter Results * PT-INR (11/28/2017 8:25 AM EDT) PT 12.1 10.2 - 12.9 sec [facility] INR 1.1 0.9 - 1.1 [facility] Comment:Therapeutic range fo r oral Vitamin K antagonists: 2.0-3.5 Blood 11/28/2017 8:25 AM EDT 11/28/2017 8:30 AM EDT us Maryam Kelly PA-C LAB BLOOD BKR ORDERABLES Final Result [address] [address] * Ferritin (11/28/2017 8:25 AM EDT) FERRITIN 198 30 - 400 ug/L [facility] Blood 11/28/2017 8:25 AM EDT 11/28/2017 8:30 AM EDT us Maryam Kelly PA-C LAB BLOOD BKR ORDERABLES Final Result [address] [address] * Iron and iron binding capacity (11/28/2017 8:25 AM EDT) IRON 67 45 - 160 ug/dL [facility] IRON BINDING CAPACITY 279 228 - 428 ug/dL [facility] TRANSFERRIN SATURAT. 24 20 - 55 % [facility] Blood 11/28/2017 8:25 AM EDT 11/28/2017 8:30 AM EDT us Maryam Kelly PA-C LAB BLOOD BKR ORDERABLES Final Result [address] [address] * Immunoglobulin A (11/28/2017 8:25 AM EDT) IgA 189 70 - 400 mg/dL [facility] Blood 11/28/2017 8:25 AM EDT 11/28/2017 8:30 AM EDT us Maryam Kelly PA-C LAB BLOOD BKR ORDERABLES Final Result [address] [address] * Hepatitis B surface antigen (11/28/2017 8:25 AM EDT) HBV SURFACE ANTIGEN Negative Negative [facility] Blood 11/28/2017 8:25 AM EDT 11/28/2017 8:30 AM EDT us Maryam Kelly PA-C LAB BLOOD BKR ORDERABLES Final Result [address] [address] * Hepatitis A antibody, IgM (11/28/2017 8:25 AM EDT) Hepatitis A Antibody, IgM Negative Negative [facility] Blood 11/28/2017 8:25 AM EDT 11/28/2017 8:30 AM EDT us Maryam Kelly PA-C LAB BLOOD BKR ORDERABLES Final Result [address] [address] * (ABNORMAL) Comprehensive metabolic panel (11/28/2017 8:25 AM EDT) SODIUM 142 133 - 146 mmol/L [facility] POTASSIUM 4.3 3.3 - 5.1 mmol/L [facility] CHLORIDE 102 96 - 108 mmol/L [facility] CO2 27 21 - 35 mmol/L [facility] BUN 7 6 - 19 mg/dL [facility] CREATININE 0.80 0.5 - 1.5 mg/dL [facility] GLUCOSE 111(H) 70 - 99 mg/dL [facility] ALBUMIN 3.9 3.9 - 4.8 g/dL [facility] TOTAL PROTEIN 7.1 6.5 - 8.0 g/dL [facility] CALCIUM 9.4 8.4 - 10.3 mg/dL [facility] ALKALINE PHOSPHATASE 72 39 - 117 U/L [facility] TOTAL BILIRUBIN 0.6 0.0 - 1.2 mg/dL [facility] AST 41(H) 0 - 37 U/L [facility] ALT 81(H) 0 - 40 U/L [facility] GLOBULIN 3.2 1 - 4.8 g/dL [facility] EGFR 103 >59 mL/min/1.7 3m2 [facility] Comment:If patient is black, multiply result by 1.159. Estimated glomerular filtration rate calculated using the CKD-EPI equation. ANION GAP 17 10 - 20 mmol/L [facility] Blood 11/28/2017 8:25 AM EDT 11/28/2017 8:30 AM EDT us Maryam Kelly PA-C LAB BLOOD BKR ORDERABLES Final Result [address] [address] * CBC (11/28/2017 8:25 AM EDT) WBC 7.98 3.40 - 11.20 K/uL [facility] RBC 5.31 4.50 - 5.50 M/uL [facility] HGB 15.5 13.0 - 17.0 g/dL [facility] HCT 45.5 40.0 - 51.0 % [facility] PLT 239 130 - 400 K/uL [facility] MCV 85.7 79.0 - 98.0 fL [facility] MCH 29.2 27.0 - 34.8 pg [facility] MCHC 34.1 31.5 - 36.0 g/dL [facility] RDW 13.2 10.8 - 14.6 % [facility] MPV 10.0 9.4 - 12.4 fl [facility] NRBC 0.00 /100 WBCs [facility] ABSOLUTE NRBC 0.00 K/uL [facility] Blood 11/28/2017 8:25 AM EDT 11/28/2017 8:30 AM EDT us Maryam Kelly PA-C LAB BLOOD BKR ORDERABLES Final Result [facility] [address] [place] [address] * Tissue transglutaminase IgA (11/28/2017 8:25 AM EDT) TTG IGA ANTIBODY <1.2 <4.0 (Negative) U/mL [facility] DPT OF LAB MED AND PAT+ Blood 11/28/2017 8:25 AM EDT 11/28/2017 8:30 AM EDT us Maryam Kelly PA-C LAB BLOOD BKR ORDERABLES Final Result [facility] DPT OF LAB MED AND PAT+ [address] [place] [address] * Smooth Muscle Antibody (11/28/2017 8:25 AM EDT) ANTI-SMOOTH MUSCLE AB Negative Negative [facility] DPT OF LAB MED AND PAT+ Comment: (NOTE) ADDITIONAL INFORMATION This test was developed and its performance characteristics determined by [facility] in a manner consistent with CLIA requirements. This test has not been cleared or approved by the U.S. Food and Drug Administration. Blood 11/28/2017 8:25 AM EDT 11/28/2017 8:30 AM EDT Maryam Kelly PA-C LAB BLOOD ORDERABLES Final Resu lt Performing Organization Address City/[facility]/ZIP Co de Phone Number [facility] DPT OF LAB MED AND PAT+ [address] [place] [address] * (ABNORMAL) Antinuclear antibody (CEE) (11/28/2017 8:25 AM EDT) CEE SCREEN ON HEP 2 Positive(A ) Negative [facility] Comment:An CEE Titer has bee n reflexed. The results will follow. Blood 11/28/2017 8:25 AM EDT 11/28/2017 8:30 AM EDT Maryam Kelly PA-C LAB BLOOD BKR ORDERABLES Final Result Performing Organization Address [facility]/ZIP Co de Phone Number [facility] [address] [place] [address] * Anti-Mitochondrial Antibody (AMA) (11/28/2017 8:25 AM EDT) MITOCHONDRIAL AB M2 <0.1 <0.1 (Negative) U [facility] DPT OF LAB MED AND PAT+ Blood 11/28/2017 8:25 AM EDT 11/28/2017 8:30 AM EDT Maryam Kelly PA-C LAB BLOOD ORDERABLES Final Resu lt Performing Organization Address City/[facility]/ZIP Co de Phone Number [facility] DPT OF LAB MED AND PAT+ [address] [place] [address] * AFP (non-maternal specimens) (11/28/2017 8:25 AM EDT) AFP (NON-MATERNAL) 2.8 0.8 - 7.5 ng/mL [facility] Blood 11/28/2017 8:25 AM EDT 11/28/2017 8:30 AM EDT us Maryam Kelly PA-C LAB BLOOD BKR ORDERABLES Final Result [facility] [address] [place] [address] * [id number] phenotyping (11/28/2017 8:25 AM EDT) ALPHA 1 ANTITRYPSIN 150 100 - 190 mg/dL [facility] DPT OF LAB MED AND PAT+ A1A PHENOTYPE MM bands [facility] DPT OF LAB MED AND PAT+ Comment: (NOTE) A single M isoform is detected. In the context of a normal fwene-[id number] concentration, this is consistent with an MM phenotype. Blood 11/28/2017 8:25 AM EDT 11/28/2017 8:30 AM EDT us Maryam Kelly PA-C LAB BLOOD ORDERABLES Final Resu lt [facility] DPT OF LAB MED AND PAT+ [address] [place] [address] * Pscpv-[id number] (11/28/2017 8:25 AM EDT) [id number] PSIN 154 100 - 190 mg/dL [facility] DPT OF LAB MED AND PAT+ Blood 11/28/2017 8:25 AM EDT 11/28/2017 8:30 AM EDT Maryam Kelly PA-C LAB BLOOD ORDERABLES Final Resu lt [facility] DPT OF LAB MED AND PAT+ [address] [place] [address] documented in this encounter Visit Diagnoses Diagnosis Fatty liver- Primary Other chronic nonalcoholic liver disease Elevated liver enzymes Other nonspecific abnormal serum enzyme levels documented in this encounter Care Teams Crane Hoist Or Lift Operator Relationship Specialty Start Date End Date Migue Gilliam MD PCP - General Internal Medicine 04/12/17 04/25/19 Glenroy Abel MD PCP - General Internal Medicine 04/26/19 08/02/22 Vitor Levy MD [address] [place] [address] PCP - General Family Medicine 08/03/22 documented as of this encounter Additional Source Comments The information contained in this document represents components of the legal health record. It is not the complete legal health record.[facility]
--- OUTSIDE RECORDS SUMMARY | 2025-05-24 12:36 | XMS_ITS | Encounter Summary ---
Author Organization [facility] Address [address] [place] [phone] Phone Care Team Providers Care Furnace Utility Operator Name Role Phone Glenroy Abel MD Primary Care Provider [phone] Vitor Levy MD Primary Care Provider + Encounter Details Date Type Department Care Team (Late Contact Info) Description 05/09/2019 Procedure Pass [facility]oscopy Admitting Dept Virtual Department [address] [place] [address] Social History Tobacco Use Types Packs/Day Years [...] 09/19/2025 3:00 PM EDT Office Visit [facility] [address] [place] [address] Kyle Enamorado MD [address] [place] [address] Orthopedics & Sports Medicine, [facility] [place] [address] 04/07/2026 Hospital Encounter [facility] Endoscopy Admitting Dept Virtual Department [address] [place] [address] Teto Noble MD [address] [place] [address] [email or web address] 04/07/2026 Procedure Pass [facility] Endoscopy Admitting Dept Virtual Department [address] [place] [address] Scheduled Procedures Name Priority Associated Diagnoses Date/Ti me COLONOSCOPY History of adenomatous polyp of colon documented as of this encounter Visit Diagnoses Not on filedocumented in this encounter Care Teams Furnace Utility Operator Relationship Specialty Start Date End Date Glenroy Abel MD PCP - General Internal Medicine 04/26/19 08/02/22 Vitor Levy MD [address] [place] [address] PCP - General Family Medicine 08/03/22 documented as of this encounter Additional Source Comments The information contained in this document represents components of the legal health record. It is not the complete legal health record.[facility]
--- OUTSIDE RECORDS SUMMARY | 2025-05-24 12:36 | XMS_ITS | Encounter Summary ---
Author Organization [facility] Address [address] [place] [address] Phone Care Team Providers Care Rand Cementer Name Role Phone Vitor Levy MD Primary Care Provider + Encounter Details Date Type Department Care Team (Late Contact Info) Description 10/26/2023 Procedure Pass [facility] [address] [place] [address] Social History Tobacco Use Types Packs/Day Years [...] Description 09/19/2025 3:00 PM EDT Office Visit [facility] [address] [place] [address] Kyle Enamorado MD [address] [place] [address] Orthopedics & Sports Medicine, [place] [address] [email or web address] 04/07/2026 Hospital Encounter [facility] Endoscopy Admitting Dept Virtual Department [address] [place] [address] Teto Noble MD [address] [place] [address] [email or web address] 04/07/2026 Procedure Pass [facility] Endoscopy Admitting Dept Virtual Department [address] [place] [address] Scheduled Procedures Name Priority Associated Diagnoses Date/Ti me COLONOSCOPY History of adenomatous polyp of colon documented as of this encounter Visit Diagnoses Not on filedocumented in this encounter Care Teams Rand Cementer Relationship Specialty Start Date End Date Vitor Levy MD [address] [place] [address] PCP - General Family Medicine 08/03/22 documented as of this encounter Additional Source Comments The information contained in this document represents components of the legal health record. It is not the complete legal health record.[facility]
--- OUTSIDE RECORDS SUMMARY | 2025-05-24 12:36 | XMS_ITS | Encounter Summary ---
Author Organization Formerly [facility] Address [address] [place] [address] Phone Care Team Providers Care Lease Analyst Name Role Phone Vitor Levy MD Primary Care Provider + Encounter Details Date Type Department Care Team (Latest Contact Info) Description 09/20/2023 Transcribe Orders Virtual Department [address] [place] [address] Teto Noble MD [address] [place] [address] [email or web address] VILLALPANDO (nonalcoholic steatohepatitis) (Primary Dx) Social History Tobacco [...] Description 09/19/2025 3:00 PM EDT Office Visit [facility] [address] [place] [address] Kyle Enamorado MD [address] [place] [address] Orthopedics & Sports Medicine, [facility] [place] [address] 04/07/2026 Hospital Encounter [facility] Endoscopy Admitting Dept Virtual Department [address] [place] [address] Teto Noble MD [address] [place] [address] 04/07/2026 Procedure Pass [facility] Endoscopy Admitting Dept Virtual Department [address] [place] [phone] Scheduled Procedures Name Priority Associated Diagnoses Date/Ti me COLONOSCOPY History of adenomatous polyp of colon documented as of this encounter Results * US LIVER WITH ELASTOGRAPHY (10/07/2023 9:31 AM EDT) Anatomical Region Laterality Modality Abdomen Ultrasound 10/09/2023 11:4 2 AM EDT Impressions 10/10/2023 5:29 AM EDT The median shear wave speed is 1.8 m/s. This is between 1.7-2.1 m/s, which is suggestive of compensated advanced chronic liver disease. The IQR to median ratio is less than 15% and the measure of liver stiffness is therefore acceptable. Hepatic steatosis. RECOMMENDATION: Consider further testing for confirmation of compensated advanced chronic liver disease. [employer] [facility] [employer]: In the setting of elevated liver function tests, nonfasting, vascular congestion, etc., the stage of liver fibrosis may be overestimated. In some patients with NAFLD, the cut-off values for compensated advanced chronic liver disease may be lower. In causes other than viral hepatitis and NAFLD, the cut-off values are not well established. Narrative 10/10/2023 5:29 AM EDT US LIVER WITH ELASTOGRAPHY Referring clinician's provided indication for this examination in [facility]: Outside Radiology Order; villalpando TECHNIQUE: Focused ultrasound evaluation of the liver. Volumetric sweeps were obtained and reviewed. COMPARISON: US LIVER WITH ELASTOGRAPHY FINDINGS: LIVER: Hyperechogenic parenchyma with areas of focal sparing around the gallbladder. No suspicious focal lesion. ELASTOGRAPHY: Liver stiffness measurements were obtained in the right hepatic lobe on a SamsuGuidesly ultrasound machine. 10 valid measurements were obtained. Median shear wave speed is: 1.8 m/s. IQR to median ratio: 5%. Gallbladder: No gallstones or gallbladder wall thickening. Daly's Sign: Negative. Biliary: No intrahepatic biliary ductal dilatation. The common bile duct measures 4 mm. Procedure Note Binh Moeller MD - 10/10/2023 US LIVER WITH ELASTOGRAPHY Referring clinician's provided indication for this examination in Epic:Outside Radiology Order; villalpando TECHNIQUE: Focused ultrasound evaluation of the liver. Volumetric sweeps wereobtained and reviewed. COMPARISON: US LIVER WITH ELASTOGRAPHY FINDINGS: LIVER: Hyperechogenic parenchyma with areas of focal sparing around thegallbladder. No suspicious focal lesion. ELASTOGRAPHY: Liver stiffness measurements were obtained in the righthepatic lobe on a Samsung ultrasound machine. 10 valid measurements wereobtained. Median shear wave speed is: 1.8 m/s. IQR to median ratio: 5%. Gallbladder: No gallstones or gallbladder wall thickening. Daly's Sign: Negative. Biliary: No intrahepatic biliary ductal dilatation. The common bile duct measures 4 mm. IMPRESSION: The median shear wave speed is 1.8 m/s. This is between 1.7-2.1 m/s,which is suggestive of compensated advanced chronic liver disease. The IQRto median ratio is less than 15% and the measure of liver stiffness istherefore acceptable. Hepatic steatosis. RECOMMENDATION: Consider further testing for confirmation of compensated advanced chronicliver disease. [employer]IOLOGISTS [employer]TRAS[employer] CONSENSUS: In [...] documented in this encounter Visit Diagnoses Diagnosis VILLALPANDO (nonalcoholic steatohepatitis)- Primary Other chronic nonalcoholic liver disease VILLALPANDO (nonalcoholic steatohepatitis) Other chronic nonalcoholic liver disease documented in this encounter Care Teams Lease Analyst Relationship Specialty Start Date End Date Vitor Levy MD [address] [place] [phone] PCP - General Family Medicine 08/03/22 documented as of this encounter Additional Source Comments The information contained in this document represents components of the legal health record. It is not the complete legal health record.[facility]
--- OUTSIDE RECORDS SUMMARY | 2025-05-24 12:36 | XMS_ITS | Encounter Summary ---
Author Organization [facility] Address [address] [place] [address] Phone Care Team Providers Care Service Desk Manager Name Role Phone Migue Gilliam MD Primary Care Provider Carlos Abel, Glenroy Richard MD Primary Care Provider [phone] Vitor Levy MD Primary Care Provider + Encounter Details Date Type Department Care Team (Latest Contact Info) Description 08/24/2018 Transcribe Orders [facility] [address] [place] [address] Blaine, Freddie Florence MD [address] [place] [address] [address] [place] [address] [email or web address] Other fatigue (Primary Dx); Routine medical exam; High glucose Social History Tobacco Use Types Packs/Day Years [...] Description 09/19/2025 3:00 PM EDT Office Visit [facility] [address] [place] [address] Kyle Enamorado MD [address] [place] [address] [facility] [place] [place] [address] 04/07/2026 Hospital Encounter [facility] Endoscopy Admitting Dept Virtual Department [address] [place] [address] Teto Noble MD [address] [place] [address] [email or web address] 04/[email or web address]/2026 Procedure Pass [facility] Endoscopy Admitting Dept Virtual Department [address] [place] [address] Scheduled Procedures Name Priority Associated Diagnoses Date/Ti me COLONOSCOPY History of adenomatous polyp of colon documented as of this encounter Results * Magnesium (08/24/2018 9:32 AM EDT) MAGNESIUM 1.8 1.6 - 2.6 mg/dL [facility] Blood 08/24/2018 9:32 AM EDT 08/24/2018 9:35 AM EDT Freddie Valladares MD LAB BLOOD BKR ORDERABLES Final Result Performing Organization Address City/[facility]/ZIP Co de Phone Number [address] [address] * Vitamin B12 (08/24/2018 9:32 AM EDT) VITAMIN B12 234 232 - 1,245 pg/mL [facility] Blood 08/24/2018 9:32 AM EDT 08/24/2018 9:35 AM EDT Freddie Valladares MD LAB BLOOD BKR ORDERABLES Final Result Performing Organization Address [facility]/ZIP Co de Phone Number [address] [address] * Hemoglobin A1c (08/24/2018 9:32 AM EDT) HEMOGLOBIN A1C 4.9 4.3 - 5.8 % [facility] Blood 08/24/2018 9:32 AM EDT 08/24/2018 9:35 AM EDT Freddie Valladares MD LAB BLOOD BKR ORDERABLES Final Result [facility] [address] [place] [address] * CBC and differential (08/24/2018 9:32 AM EDT) WBC 7.81 3.40 - 11.20 K/uL [facility] RBC 5.31 4.50 - 5.50 M/uL [facility] HGB 15.7 13.0 - 17.0 g/dL [facility] HCT 45.7 40.0 - 51.0 % [facility] PLT 246 130 - 400 K/uL [facility] MCV 86.1 79.0 - 98.0 fL [facility] MCH 29.6 27.0 - 34.8 pg [facility] MCHC 34.4 31.5 - 36.0 g/dL [facility] RDW 13.3 10.8 - 14.6 % [facility] MPV 9.8 9.4 - 12.4 fl [facility] NRBC 0.00 0.00 /100 WBCs [facility] ABSOLUTE NRBC 0.00 0.00 K/uL [facility] DIFF METHOD Auto [facility] NEUTS 63.3 45.30 - 77.70 % [facility] LYMPHS 27.3 12.30 - 39.70 % [facility] MONOS 6.8 4.10 - 12.80 % [facility] EOS 1.7 0 - 7.2 % [facility] BASOS 0.5 0 - 2.80 % [facility] Granulocytes, immature (%) 0.4 0.0 - 0.9 % [facility] ABSOLUTE NEUTS 4.95 1.40 - 7.70 K/uL [facility] ABSOLUTE LYMPHS 2.13 0.60 - 3.20 K/uL [facility] ABSOLUTE MONOS 0.53 0.11 - 0.59 K/uL [facility] ABSOLUTE EOS 0.13 0.01 - 0.50 K/uL [facility] ABSOLUTE BASOS 0.04 0.00 - 0.08 K/uL [facility] Granulocytes, immature 0.03 0.00 - 0.05 K/uL [facility] Blood 08/24/2018 9:32 AM EDT 08/24/2018 9:35 AM EDT Freddie Valladares MD LAB BLOOD BKR ORDERABLES Final Result [address] [address] * TSH with reflex (08/24/2018 9:32 AM EDT) TSH 1.09 0.27 - 4.20 uIU/mL [facility] Blood 08/24/2018 9:32 AM EDT 08/24/2018 9:35 AM EDT Freddie Valladares MD LAB BLOOD BKR ORDERABLES Final Result Performing Organization Address City/[facility]/ZIP Co de Phone Number [address] [address] * Lipid panel (08/24/2018 9:32 AM EDT) HDL 40 mg/dL [facility] Comment: Interpretation <40 mg/dL: Low HDL cholesterol (major risk factor for CHD) Greater than or equal to 60 mg/dL: High HDL cholesterol ( negative risk factor for CHD) HDL - cholesterol is affected by a number of factors, e.g. smoking, excerise, hormones, sex and age. CHOLESTEROL 168 0 - 240 mg/dL [facility] TRIGLYCERIDES 158 30 - 160 mg/dL [facility] LDL 96 50 - 129 mg/dL [facility] Comment: LDL levels in terms of risk for coronary heart disease: <100 mg/dL: Optimal 100-129 mg/dL: Near or above optimal 130-159 mg/dL: Borderline high 160-189 mg/dL: High >190 mg/dL: Very High CARDIAC RISK RATIO 4.2 3.4 - 5.0 [facility] Blood 08/24/2018 9:32 AM EDT 08/24/2018 9:35 AM EDT Freddie Valladares MD LAB BLOOD BKR ORDERABLES Final Result [facility] [address] [place] [address] * (ABNORMAL) Comprehensive metabolic panel (08/24/2018 9:32 AM EDT) SODIUM 140 133 - 146 mmol/L [facility] POTASSIUM 4.3 3.3 - 5.1 mmol/L [facility] CHLORIDE 103 96 - 108 mmol/L [facility] CO2 26 21 - 35 mmol/L [facility] BUN 10 6 - 19 mg/dL [facility] CREATININE 0.60 0.5 - 1.5 mg/dL [facility] GLUCOSE 100(H) 70 - 99 mg/dL [facility] ALBUMIN 4.1 3.9 - 4.8 g/dL [facility] TOTAL PROTEIN 6.9 6.5 - 8.0 g/dL [facility] CALCIUM 9.6 8.4 - 10.3 mg/dL [facility] ALKALINE PHOSPHATASE 63 39 - 117 U/L [facility] TOTAL BILIRUBIN 0.4 0.0 - 1.2 mg/dL [facility] Comment: Results from certain multiple myeloma patients may show a positive bias in recovery. Not all multiple myeloma patients show the bias and severity of the bias may vary between patients. In very rare cases, gammopathy, in particular type IgM (Waldenstrom's macroglobulinemia), may cause unreliable results. AST 31 0 - 37 U/L [facility] ALT 45(H) 0 - 40 U/L [facility] GLOBULIN 2.8 1 - 4.8 g/dL [facility] EGFR 116 >59 mL/min/1.7 3m2 [facility] Comment:If patient is black, multiply result by 1.159. Estimated glomerular filtration rate calculated using the CKD-EPI equation. ANION GAP 15 10 - 20 mmol/L [facility] Blood 08/24/2018 9:32 AM EDT 08/24/2018 9:35 AM EDT Freddie Valladares MD LAB BLOOD BKR ORDERABLES Final Result [facility] [address] [place] [address] documented in this encounter Visit Diagnoses Diagnosis Other fatigue- Primary Routine medical exam Routine general medical examination at a health care facility High glucose documented in this encounter Care Teams Service Desk Manager Relationship Specialty Start Date End Date Migue Gilliam MD PCP - General Internal Medicine 04/12/17 04/25/19 Glenroy Abel MD PCP - General Internal Medicine 04/26/19 08/02/22 Vitor Levy MD [address] [place] [phone] PCP - General Family Medicine 08/03/22 documented as of this encounter Additional Source Comments The information contained in this document represents components of the legal health record. It is not the complete legal health record.[facility]
--- OUTSIDE RECORDS SUMMARY | 2025-05-24 12:36 | XMS_ITS | Encounter Summary ---
Author Organization [facility] Address [address] [place] [address] Phone Care Team Providers Care Board Liner Operator Name Role Phone Migue Gilliam MD Primary Care Provider Glenroy Dowling MD Primary Care Provider [phone] Vitor Levy MD Primary Care Provider + Encounter Details Date Type Department Care Team (Latest Contact Info) Description 05/01/2018 Transcribe Orders [facility] [address] [place] [address] Migue Gilliam MD Healthcare maintenance (Primary Dx) Social History Tobacco Use Types [...] 09/19/2025 3:00 PM EDT Office Visit [facility] [address] [place] [address] Kyle Enamorado MD [address] [place] [address] [facility] [place] [place] [address] 04/07/2026 Hospital Encounter [facility] Endoscopy Admitting Dept Virtual Department [address] [place] [address] Teto Noble MD [address] [place] [address] [email or web address] 04/07/2026 Procedure Pass [facility] Endoscopy Admitting Dept Virtual Department [address] [place] [address] Scheduled Procedures Name Priority Associated Diagnoses Date/Ti me COLONOSCOPY History of adenomatous polyp of colon documented as of this encounter Results * Chlamydia Trachomatis and Neisseria Gonorrhoeae Nucleic Acid Detection (05/01/2018 12:10 PM EST) CHLAMYDIA TRACHOMATIS Not Detected Not Detected [facility] NEISERIA GONORRHOEAE Not Detected Not Detected [facility] SPECIMEN TYPE urine [facility] Urine (Urine) 05/01/2018 12: 10 PM EST 05/01/2018 12:13 PM EST Migue Gilliam MD LAB GENERAL ORDERABLES Final Re sult [address] [address] * Syphilis antibody screen (05/01/2018 12:01 PM EST) RPR NON-REACTIV E NON-REACTI VE [facility] Blood 05/01/2018 12:0 1 PM EST 05/01/2018 12:09 PM EST us Migue Gilliam MD LAB BLOOD BKR ORDERABLES Final Result [address] [address] * PSA (screening) (05/01/2018 12:01 PM EST) PSA 1.20 0 - 4.00 ng/mL [facility] Blood 05/01/2018 12:0 1 PM EST 05/01/2018 12:08 PM EST us Migue Gilliam MD LAB BLOOD BKR ORDERABLES Final Result Performing Organization Address City/[facility]/ZIP Co de Phone Number [address] [address] * HIV-1/2 antigen/antibody (05/01/2018 12:01 PM EST) HIV Antibod(ies) NON-REACTI VE NON-REACTI VE [facility] HIV-1 ANTIGEN NON-REACTI VE NON-REACTI VE [facility] Blood 05/01/2018 12:0 1 PM EST 05/01/2018 12:09 PM EST us Migue Gilliam MD LAB BLOOD BKR ORDERABLES Final Result Performing Organization Address [facility] Co de Phone Number [address] [address] * Hemoglobin A1c (05/01/2018 12:01 PM EST) HEMOGLOBIN A1C 5.5 4.3 - 5.8 % [facility] Blood 05/01/2018 12:0 1 PM EST 05/01/2018 12:09 PM EST us Migue Gilliam MD LAB BLOOD BKR ORDERABLES Final Result Performing Organization Address [facility] Co de Phone Number [address] [address] * (ABNORMAL) Lipid panel (05/01/2018 12:01 PM EST) HDL 36 mg/dL [facility] Comment: Interpretation <40 mg/dL: Low HDL cholesterol (major risk factor for CHD) Greater than or equal to 60 mg/dL: High HDL cholesterol ( negative risk factor for CHD) HDL - cholesterol is affected by a number of factors, e.g. smoking, excerise, hormones, sex and age. CHOLESTEROL 156 0 - 240 mg/dL [facility] TRIGLYCERIDES 225(H) 30 - 160 mg/dL [facility] LDL 75 50 - 129 mg/dL [facility] Comment: LDL levels in terms of risk for coronary heart disease: <100 mg/dL: Optimal 100-129 mg/dL: Near or above optimal 130-159 mg/dL: Borderline high 160-189 mg/dL: High >190 mg/dL: Very High CARDIAC RISK RATIO 4.3 3.4 - 5.0 C [facility] Blood 05/01/2018 12:0 1 PM EST 05/01/2018 12:09 PM EST us Migue Gilliam MD LAB BLOOD BKR ORDERABLES Final Result [address] [address] documented in this encounter Visit Diagnoses Diagnosis Healthcare maintenance- Primary documented in this encounter Care Teams Board Liner Operator Relationship Specialty Start Date End Date Migue Gilliam MD PCP - General Internal Medicine 04/12/17 04/25/19 Glenroy Abel MD PCP - General Internal Medicine 04/26/19 08/02/22 Vitor Levy MD [address] [place] [address] PCP - General Family Medicine 08/03/22 documented as of this encounter Additional Source Comments The information contained in this document represents components of the legal health record. It is not the complete legal health record.[facility]
== END 2025-05-24 11:25 | disposition home or self-care (01) ==
LOC: HO.HUSH 10:48
PROVIDERS: PCP Family Medicine; Visit Provider Urology
DX: E11.69 Type 2 diabetes mellitus with other specified complication (principal); N52.1 Erectile dysfunction due to diseases classified elsewhere; E29.1 Testicular hypofunction
CPT/HCPCS: 99213